=== PATIENT | female | born 1965 | race Caucasian/White ===

== ENCOUNTER → 2018-02-20 07:43 | Outpatient (CLI) | payer OTHER, SELFPAY ==
--- NOTE | 2018-02-20 08:09 | BI_ITS ---
MAMMOGRAPHY - BILATERAL SCREENING 3-D WILBUR SYNTHESIS REASON FOR EXAM: Female, 52 years old. Bilateral Screening 3-D tomosynthesis PERTINENT HISTORY: No significant family history. TECHNIQUE: 2-D mammograms and 3-D Wilbur synthesis of the breast (s) were performed. CAD was performed. COMPARISON: None. FINDINGS: The breast composition is composed of scattered fibroglandular density. Scattered benign calcifications are seen. No dense spiculated masses or suspicious microcalcifications are identified. No architectural distortion is identified. There is no skin thickening or retraction. There has been no significant change since the prior study. BI/SCREENING MAMM (CAD), BILAT IMPRESSION: No mammographic signs of malignancy. Routine yearly mammograms recommended. ASSESSMENT CATEGORY: BIRADS Category 2: Benign. A letter regarding these results will be sent to the patient by the facility within 30 days. FOLLOW UP RECOMMENDATION: Yearly follow up mammogram recommended. (A) Approximately 10% of breast cancers are not detected by mammography. A normal mammogram should not delay biopsy of a clinically suspicious abnormality. Electronically Signed: Alex Lundberg MD at 17:30 EDT , Service support ,
== END ==
PROVIDERS: Family Provider Nurse Practitioner Family; PCP Nurse Practitioner Family; Visit Provider Nurse Practitioner Family
DX: Z12.31 Encounter for screening mammogram for malignant neoplasm of breast (principal)
CPT/HCPCS: 77063; 77067

== ENCOUNTER → 2018-07-22 16:40 | Outpatient (CLI) | payer OTHER, SELFPAY ==
--- NOTE | 2018-07-22 16:40 | EMB_PTH ---
PATIENT: ANDRY MCKENZIE LOC: [facility] U#:[id number] AGE/SX: 59/F ROOM: RE07/22/[address]: Dr. Ramon Sanchez MD : 1965 BED: DIS: SPEC #: [id number] RECD: 07/22/18 17:02 STATUS: JAIRO LEXUS #: [id number] ANGEL: 07/22/18 16:[address]: Ramon Sanchez DEPT: SURGICAL PATHOLOGY RECD BY: Loi Ramirez ENTERED: 07/23/18 11:28 SP TYPE: ENDOM BX/C EV[place] DR: Mauro Hernández, AMANDEEP-C Tissues: Endometrium, NOS Procedures: Surgery Specimen Level IV HEADER OPERATION: Endometrial biopsy PRE-OP DIAGNOSIS: Menorrhagia TISSUE SUBMITTED: Endometrial biopsy MICROSCOPIC DIAGNOSIS Endometrium, biopsy: Strips of weakly proliferative to inactive endometrium with focal stromal and glandular breakdown. Mild chronic endometritis. AM:martina 07/26/18 MICROSCOPIC DESCRIPTION Slides are reviewed. GROSS DESCRIPTION Received in fixative is one container labeled with the patient's name and designated endometrial biopsy. The specimen consists of multiple irregular fragments of red-zhao soft tissue that in aggregate measure 5.5 x 3 x 0.2 cm. The specimen is totally submitted in two cassettes. / AM:martina 07/23/18 TC:5 CPT: 89894
== END ==
PROVIDERS: Family Provider Nurse Practitioner Family; PCP Nurse Practitioner Family; Referring Provider Obstetrics & Gynecology; Visit Provider Obstetrics & Gynecology
DX: N92.0 Excessive and frequent menstruation with regular cycle (principal)
CPT/HCPCS: 88305

== ENCOUNTER → 2018-07-28 10:11 | Outpatient (CLI) | payer OTHER, SELFPAY ==
[2018-07-28 13:59] LABS: Follicle Stimulating Hormone 6.6 mIU/mL; Thyroid Stim Hormone (TSH) 1.63 uIU/mL (0.358-3.74)
[2018-07-29 12:06] LABS: Cancer Antigen 125 23.8 U/mL (0.0-38.1)
== END ==
PROVIDERS: Visit Provider Obstetrics & Gynecology
DX: N92.0 Excessive and frequent menstruation with regular cycle (principal); N84.1 Polyp of cervix uteri
CPT/HCPCS: 36415; 83001; 84443; 86304

== ENCOUNTER 2018-08-30 08:06 | Day surgery (SDC) | payer OTHER, SELFPAY ==
[2018-08-25 13:33] LABS: Hematocrit 38.3 % (37-47); Hemoglobin 12.2 g/dl (12.0-15.0); Mean Corp Hgb Conc 31.9 g/gl (32-36); Mean Corpuscular Hgb 31.1 pg (27.0-32.0); Mean Corpuscular Volume 97.7 fL (81-99); Platelet Count 248 K/mm3 (150-450); RBC Distribution Width CV 12.9 % (11.6-14.6); RBC Distribution Width SD 45.4 fl (35.1-43.9); Red Blood Count 3.92 M/mm3 (4.2-5.4); White Blood Count 4.3 K/mm3 (4.4-11.0)
[2018-08-25 13:37] LABS: Scan Indicated on CBC? Y/N NO
[2018-08-25 13:47] LABS: Prothrombin Time (Protime)PT. 13.1 SECONDS (11.7-14.9)
[2018-08-25 13:48] LABS: Partial Thromboplast Time 26.4 Seconds (24.1-36.2)
[2018-08-25 14:01] LABS: Creatinine, Serum 0.69 mg/dL (0.55-1.02); EST Glomerular Filtration Rate 94 mL/min (>60); Est Glom Filt Rate - Afr Amer 114 mL/min (>60)
--- NOTE | 2018-08-29 20:20 | PCM.HP.BLA ---
History and Physical Date of Admission: 08/30/18 Surgical History and Physical Mishel Mckeon, a 52 year old female 2 0 0 0 2, presents for RAVH/BSO on August 30, 2018 at 12:30. -- Bilateral Ovarian Cysts; Blood Loss Anemia; Menorrhagia; Submucous Fibroids -- Low Iron Count, Heavy Periods which began 1 year. Mishel claims it started gradually and has been present 1 year. It occurs with menses. It is located in the vagina.; It is located in the lower abdomen. Mishel characterizes it to be non-radiating. Mishel characterizes the quality heavy menses. Severity is moderate and very concerned; Additional comments are: U/S showed submucous fibroid, bilateral septated ovarian cysts with largest 7 cm. MEDICATIONS HISTORY: ALLERGIES: NKA Infections - none Illnesses - no serious past illnesses Accidents - no injuries of consequence Hospitalizations - Childbirth Review of Systems: GENERAL - Denies fever, or chills SKIN - Denies skin changes EYES - Denies visual changes EARS - Denies difficulty hearing NOSE - Denies nasal congestion or bleeding MOUTH - Denies sore throat or difficulty swallowing NECK - Denies pain or swelling RESPIRATORY - Denies shortness of breath or wheezing CARDIOVASCULAR - Denies palpitations or chest pain GASTROINTESTINAL - Denies nausea, vomiting, diarrhea, constipation GENITOURINARY - Denies dysuria, frequency of urination, incontinence of urine MUSCULOSKELETAL - Denies joint or muscle pain NEUROLOGICAL - Denies localized numbness or weakness PSYCHIATRIC - Denies depression or anxiety ENDOCRINE - Denies heat or cold intolerance, weight loss or gain HEMATO-IMMUNOLOGIC - Denies excesive bleeding with cuts SOCIAL HISTORY: Alcohol Use - denies drinking Smoking - denies smoking Diet - no particular diet Lifestyle - moderate stress lifestyle and Exercise - very active Seat Belt Use - always Employer - [employer] 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 MENSTRUAL HISTORY: LMP Known?- DefiniteAmount/Duration - 4-5 DAYS, Regularity - bleeds between periods, Frequency - monthly days, LMP - 08/02/18, Age Onset Menarche - 12 PAST PREGNANCIES: Total Pregnancies - 2; Full Term Pregnancies - 2; Premature - 0; Abortions, Induced - 0; Abortions, Spontaneous - 0; Ectopics - 0; Multiple Births - 0; Living Children - 2 SURGICAL HISTORY: 1. tonsils as child PHYSICAL EXAM BP- 110/72 Sitting, Right arm, regular cuff Temp- 97.8 Taken Orally Weight- 147.99534 lbs Height- 65 inch BMI:24.51 CONSTITUTIONAL - NAD, well nourished, and well developed SKIN - No rash, lesions, or ulcers HEENT - Normocephalic, PERRLA, EOMI NECK - No nodes, no nuchal rigidity and thyroid normal size and texture LYMPH NODES - Palpation of lymph nodes in neck and groins within normal limits LUNGS - CTA x2 without wheezes, crackles or rales CARDIAC - Regular rate and rhythm without rubs, murmurs, or gallops ABDOMEN - Without hepatosplenomegaly, distention, masses, rebound, or guarding; normal bowel sounds; no hernias EXTREMITIES - No edema or calf tenderness NEUROLOGICAL - Cranial nerves II-XII grossly intact PSYCHIATRIC - A and O to time, place, person, mood and affect External Genitial Vagina - non-tender without lesions Urethra/Urethral Meatus - non-tender Bladder - non-tender Vagina - vaginal [place] are pink and moist without loss of rugae and no evidence of atropy and blood in vagina Cervix - without cervical motion tenderness and has normal size and features without evident lesions and cervix high in vagina with minimal movement with tenaculum pull-down Uterus - multiparous size 6 cm & wt 75-125 g Adnexa - clear without massess or tenderness ASSESSMENT/PLAN: 1. Blood Loss Anemia, Menorrhagia and Submucous Leiomyoma Of Uterus Discussed options for treatment and pt desires we proceed with RAVH/BSO. Discussed RBAs including possible need for laparotomy, HRT and all questions answered. 2. Ovarian Cyst Nos CA-125 mildly elevated but in normal range (23). EMBx OK.
[2018-08-30] VITALS (13 sets, daily range): BP systolic 89–109; BP diastolic 53–80; PULSE 53–75; RESP 12–18; TEMP 36.2–37.6; O2SAT 96–100; BMI 24.5
--- NOTE | 2018-08-30 | HYST_PTH ---
PATIENT: ANDRY MCKENZIE LOC: [facility] U#:[id number] AGE/SX: 52/F ROOM: RE08/30/[address]: Dr. Ramon Sanchez MD : 1965 BED: DIS: 08/31/2018 SPEC #: [id number] RECD: 08/30/18 14:53 STATUS: JAIRO LEXUS #: [id number] ANGEL: 08/30/18 00:[address]: Ramon Sanchez DEPT: SURGICAL PATHOLOGY RECD BY: Jake Santana ENTERED: 08/30/18 14:53 SP TYPE: HYSTERECT OTHR DR: MD Mauro Meyer, AMBULATORY CARE NURSE-C Tissues: Uterus, NOS Procedures: Surgery Specimen Level V HEADER OPERATION: ERAS-lap robotic hysterectomy, BSO PRE-OP DIAGNOSIS: Bilateral ovarian cysts, menorrhagia, submucous fibroids TISSUE SUBMITTED: Bilateral tubes, ovaries and uterus MICROSCOPIC DIAGNOSIS Uterus, bilateral fallopian tubes and ovaries, hysterectomy and bilateral salpingo-oophorectomy: Cervix - mild acute and chronic inflammation and squamous metaplasia. Endometrium - early secretory endometrium. Myometrium - intramural leiomyomas (largest measuring 1.2 cm in greatest dimension). - Focal adenomyosis. Bilateral fallopian tubes - no pathologic diagnosis. Right ovary - physiologic corpus luteum cyst. Left ovary - endometriosis. - Physiologic corpus luteum cyst. SJ:martina 08/31/18 MICROSCOPIC DESCRIPTION Slides are reviewed. GROSS DESCRIPTION Received in fixative is one container labeled with the patient's name and designated uterus. The specimen consists of a uterus with attached right and left fallopian tubes and ovaries. The uterus with cervix measures 11.5 x 8 x 5 cm and weighs 173 gm. The ectocervix is unremarkable. The cervical os is round in contour. The endocervical canal measures 4 cm in length and is grossly unremarkable. The triangular endometrial cavity measures 4.5 x 4.5 cm. The reddish-zhao, velvety endometrium measures up to 0.2 cm in thickness. The myometrium measures 2.8 cm in average thickness and contains multiple rubbery spherical white-zhao nodules ranging in size from 0.3 to 1.2 cm in greatest dimension. The smooth, glistening right cystic ovary measures 6 x 4 x 2.5 cm and weighs 26 gm. The adjacent fallopian tube measures 5.6 x 0.6 cm. No tubo-ovarian adhesions are seen. The external ovarian surface is smooth and glistening and is inked. Serial sections of the ovary reveal multiple cysts ranging in size from 1.3 to 4 cm and containing clear to bloody fluid. The left ovary is similar in appearance and measures 6.5 x 3.5 cm and reveals a previously sectioned cyst. The left fallopian tube measures 5.5 cm in length and 0.7 cm in average diameter and the fimbriated end appears to be adhesed to the cystic ovary. The cysts are 0.7 to 2.5 cm in greatest dimension and contain clear to bloody fluid. Machine Hostler sections are submitted in 12 cassettes as follows: 1 - anterior cervix, 2 - posterior cervix, 3 & 4 - anterior uterine wall, 5 & 6 - posterior uterine wall, 7 - myometrial nodules, 8 - right fallopian tube, 9 - right ovary, 10 - left fallopian tube, 11 & 12 - left ovary. / AM:martina 08/30/18 TC:5 CPT: 32608
[2018-08-30 08:34] LABS: Internal QC Validated? YES +Cl - CLEAR BKGD
[2018-08-30 08:37] LABS: Pregnancy, Urine Negative Negative
[2018-08-30] MEDS: Ropivacaine 0.5% 30 ML Vial (12:05)
--- NOTE | 2018-08-30 13:43 | PCM.OPRPT ---
Report of Operation Date of Procedure: 08/30/18 Pre-Operative Diagnosis: Blood Loss Anemia, Submucous Fibroids, Bilateral Ovarian Cyst, Menorrhagia Post-Operative Diagnosis: Blood Loss Anemia, Submucous Fibroids, Bilateral Ovarian Cyst, Menorrhagia Surgery/Procedure Performed:: Robotic Assisted Vaginal Hysterectomy and Bilateral Salpingo-Oophrectomy Description of Surgical Findings:: 12 cm sized fibroid uterus with bilateral ovarian cysts. Right ovary with 3 cm simple appearing cyst. Left ovary with complex endometrioid appearing cyst which was approximately 5 cm and filled with clear to greenish fluid. Densely adhered to the left pelvic sidewall. Evidence of endometriosis. Bilateral ureteral peristalsis noted after procedure was completed. signal fitter: Chepe Ross Type of Anesthesia:: General Anesthesiologist: Heidi Villanueva Specimen's removed: Uterus, bilateral fallopian tubes and ovaries Drains: Adwn to straight drain Estimated Blood Loss (mL): Minimal Fluids Replaced: Crystalloid Description of Procedure: Surgeon: Ramon Sanchez MD, FACOG Indication: This is a 52 year old patient who has been having problems with extremely heavy menses, uterine fibroid, blood loss anemia, and bilateral ovarian cysts noted on recent ultrasound. Conservative measures have not been helpful. The patient has been counseled regarding the risks, benefits and alternatives of this procedure including the possibility of bleeding, infection, and injury to surrounding structures such as bowel bladder and all questions were answered. She understands that with BSO that she may need to be on HRT for an indefinite period of time. Procedure: Pt taken to the operating room where after induction of general anesthesia the patient was prepped and draped in the usual sterile fashion and placed on a non-slip Huggy-u-vac device. Trendendelenburg test was satisfactory. Bladder was drained of urine with a Dawn catheter which was left in place. Anterior cervix grasped and cervix was dilated to about 3-4 mm. Uterus sounded to 11 cms. 0-Vicryl suture was placed at the 3:00 and 9:00 position of the cervix. A large V-care device was then placed in the uterus to allow uterine manipulation and attention was turned to the laparoscopic portion of the procedure. Ropivocaine 0.5% was injected approximately 2-3 cm superior to the umbilicus and an 8 mm robotic camera port was introduced directly with intraperitoneal placement confirmed with insufflation. 8 mm robotic side ports were introduced under direct visualization approximately 11 cm lateral and 2 cm inferior to the umbilical port. A 5 mm left upper quadrant port was introduced and airseal insufflation with CO2 was started. The above findings were noted. Robot was docked without difficulty and attention turned to the robotic portion of the procedure. Approximately 22 cc of Ropivicaine was used. Bilateral infundibulocal ligaments were ligated with 45 hernandez bipolar coagulation to the level of the round ligament. The left densely adhered ovary was freed and fluid was suctioned after the cyst ruptured. The posterior aspect of the cervix was identified and then opened for about 1 cm using 25 watt monopolar cautery identifying the V-care device which had been placed vaginally. Bladder flap was opened and divided to the level of the round ligaments using monopolar cautery. Progressive bites were then ligated on each side of the cervix with 35 hernandez bipolar cautery to the uterine arteries. The anterior vaginal mucosa was then entered and cervix circumscribed with monopolar cautery. Uterus and attached ovaries and tubes were then removed through the vagina. Vaginal cuff was closed first with 0-Vicryl Bahman stitches placed at each angle followed by closure of the mid-cuff with 0-Monocryl V-lock suture in two layers. Pelvis was copiously irrigated with saline and the right and left ureter were noted to peristalse. Robot was undocked and trocars were removed with as much gas as possible. Incisions were closed with 4-0 Monocryl subcuticular sutures and incisions covered with steri-strips and opsite dressing. The patient tolerated the procedure well and was taken to the recovery room in satisfactory condition. Sponge, instruments and needle counts were all correct. There were no apparent complications of the surgery. Cefotan 2 gms IV was given prior to the procedure. Specimen to Pathology: Uterus and bilateral tubes and ovaries Grafts/Implants Used: None - Complications None - Admit VTE Documentation VTE Present on Admission: Yes VTE Mechan Device Prophylaxis: SCD's VTE Pharm Prophylaxis ordered?: Yes
--- NOTE | 2018-08-30 13:54 | DCINST_ITS ---
Discharge Diet: No Restrictions Discharge Activity: Return to Normal Activity, May Not Drive - while taking narcotic pain medications., May Shower May resume sexual activity in: 6-8 weeks Call your doctor if your incision/area has: Continuous Slow Oozing, Sudden Increased Bleeding, Increased Pain/ Swelling, Increased Redness, Foul Smelling Discharge Call your doctor if you observe: Fever of 101 or Higher, Inability to urinate, Inability to have a bowel movement, Using more than one pad per hour Allergies/Adverse Reactions: Allergies No Known Allergies Allergy (Verified 08/23/18 11:40) Medications to take at Discharge Cranberry 500 mg PO DAILY 08/23/18 Iron Carbonyl [Feosol] 65 mg PO MOWEFR 08/23/18 Loperamide HCl [Anti-Diarrheal] 2 mg PO PRN PRN 08/23/18 Naproxen [Naprosyn] 500 mg PO DAILY PRN PRN 08/23/18 Ranitidine [Zantac] 150 mg PO DAILY PRN 08/23/18 Docusate Sodium [Colace] 100 mg PO BID PRN PRN #60 cap 08/30/18 Estradiol [Estrace (G)] 1 mg PO DAILY #100 tab 08/30/18 Oxycodone [Oxyir] 5 mg PO Q6H PRN PRN 7 Days #20 tab 08/30/18 The following prescriptions were given: Oxycodone [Oxyir] 5 mg PO Q6H PRN PRN 7 Days #20 tab PRN Reason: Severe Pain (-06/30) Docusate Sodium [Colace] 100 mg PO BID PRN PRN #60 cap PRN Reason: Constipation Estradiol [Estrace (G)] 1 mg PO DAILY #100 tab Orders to be completed after discharge: Type & Screen Time Frame: 08/25/18, Location: None Selected 12 Lead EKG [[facility]] Time Frame: 08/25/18, Location: None Selected Primary Care Physician: Mauro Hernández NP-C [Primary Care Provider] - Test Results: Test results from this visit will be discussed in further detail at your follow- up appointment, if applicable. Please Follow Up With: Ramon Sanchez MD When: 2-3 weeks
[2018-08-30] MEDS: Enoxaparin 30 MG/0.3 ML Syringe SC (18:19)
[2018-08-30] MEDS: Ketorolac 30 MG/ML Syringe IV (20:08)
[2018-08-30] MEDS: Acetaminophen 500 MG Tablet 1000 MG PO (21:52)
[2018-08-30] MEDS: oxyCODONE 5 MG Tablet PO (23:05)
[2018-08-30] MEDS: Dextrose 5%-Lactated Ringers 1,000 ML 150 ML IV (23:05)
[2018-08-31 02:00] VITALS: BP 92/51; PULSE 72; RESP 16; TEMP 37; O2SAT 99
[2018-08-31] MEDS: Ketorolac 30 MG/ML Syringe IV (02:10)
[2018-08-31 05:45] LABS: Hematocrit 31.9 % (37-47); Hemoglobin 10.1 g/dl (12.0-15.0); Mean Corp Hgb Conc 31.7 g/gl (32-36); Mean Corpuscular Hgb 31.3 pg (27.0-32.0); Mean Corpuscular Volume 98.8 fL (81-99); Mean Platelet Vol. 10.1 fl (6.2-12.0); Platelet Count 223 K/mm3 (150-450); RBC Distribution Width CV 13.3 % (11.6-14.6); RBC Distribution Width SD 46.2 fl (35.1-43.9); Red Blood Count 3.23 M/mm3 (4.2-5.4); White Blood Count 7.8 K/mm3 (4.4-11.0)
[2018-08-31 06:01] LABS: Scan Indicated on CBC? Y/N NO
[2018-08-31 06:08] LABS: Creatinine, Serum 0.57 mg/dL (0.55-1.02); EST Glomerular Filtration Rate 118 mL/min (>60); Est Glom Filt Rate - Afr Amer 142 mL/min (>60); Estimated Creatinine Clearance 103.89 ml/min
[2018-08-31 06:50] VITALS: O2SAT 98
[2018-08-31 07:51] VITALS: BP 111/60; PULSE 60; RESP 14; TEMP 36.7; O2SAT 100
--- NOTE | 2018-08-31 09:06 | PN.OBGYN_ITS ---
Subjective: Patient without complaints. Tolerating diet well. Positive flatus. Minimal vaginal bleeding. Ready to go home today. - Physical Exam Vital Signs Temp Pulse Resp BP Pulse Ox 98.1 F 60 14 111/60 100 08/31/18 07:51 08/31/18 07:51 08/31/18 07:51 08/31/18 07:51 08/31/18 07:51 Oxygen Flow Rate (L/min) 2 Oxygen Delivery Method Room Air Weight: 147 lb 0.773 oz Body Mass Index (BMI) 24.5 Intake and Output for Last 24 Hours 08/29/18 08/30/18 08/31/18 23:59 23:59 23:59 Intake Total 4094 / 4094 1200 / 1200 Output Total 2080 / 2080 1900 / 1900 Balance 2013 -700 / -700 Laboratory Tests Past 24 Hrs 08/31/18 08/31/18 05:20 05:20 WBC 7.8 RBC 3.23 L Hgb 10.1 L Hct 31.9 L MCV 98.8 MCH 31.3 MCHC 31.7 L RDW 13.3 RDW Differential 46.2 H Plt Count 223 MPV 10.1 Creatinine 0.57 Estim Creat Clear Calc 103.89 Est GFR (MDRD) Af Amer 142 Est GFR (MDRD) Non-Af 118 Wounds are clean, dry, intact. Good urine output. Hemoglobin and creatinine okay. Minimal vaginal bleeding noted. Medical Necessity - Tobacco Use Smoking Status: Never smoker Tobacco Use: Non-smoker Assessment/Plan Doing well status postoperative day #1 robotic assisted vaginal hysterectomy and bilateral salpingo-oophorectomy. We will released to home with routine instr uctions.
[2018-08-31] MEDS: Ketorolac 10 MG Tablet PO (09:33)
== END 2018-08-31 11:15 | disposition home or self-care (01) ==
LOC: SDC 08:12 → AC 08:13 → MS2 10:10
PROVIDERS: Anesthesiology; Family Provider Nurse Practitioner Family; PCP Nurse Practitioner Family; Referring Provider Obstetrics & Gynecology; Visit Provider Obstetrics & Gynecology
PROC: 0UT94ZZ Resection of Uterus, Percutaneous Endoscopic Approach (ICD-10-PCS; CPT 58552; principal; 2018-08-30 09:50)
DX: D25.1 Intramural leiomyoma of uterus (principal); N87.0 Mild cervical dysplasia; N80.0 Endometriosis of uterus; N83.12 Corpus luteum cyst of left ovary; N83.11 Corpus luteum cyst of right ovary; N80.1 Endometriosis of ovary; N72 Inflammatory disease of cervix uteri; D50.0 Iron deficiency anemia secondary to blood loss (chronic); Z79.899 Other long term (current) drug therapy
CPT/HCPCS: 00840; 58552; 36415; 81025; 82565; 85027; 85610; 85730; 86850; 86900; 88307; 93005; J7120; A4216; J2405

== ENCOUNTER → 2018-10-07 14:07 | Outpatient (CLI) | payer OTHER, SELFPAY ==
[2018-08-30 16:21] VITALS: BMI 24.5
--- OUTSIDE RECORDS SUMMARY | 2018-12-12 09:13 | XMS RPT_ITS ---
:1965 Author Organization OHIP Support Name Relationship Address Phone MIS MCKEON Unavailable [address] + [place] [address] SHERI SIGNS Unavailable [address] + [place] [address] SHAD MCKEONY Unavailable [address] + [place] [address] SHERI SIGNS Unavailable [address] + [place] [address] SHAD MCKEONY Unavailable [address] + [place] [address] SHERI SIGNS Unavailable [address] + [place] [address] MAGALY MIS Unavailable [address] + [place] [address] SHERI SIGNS Unavailable [address] + [place] [address] MAGALY MIS Unavailable [address] + [place] [address] SHERI SIGNS Unavailable [address] + [place] [address] MAGALY MIS Unavailable Unavailable + SHERI SIGNS Unavailable [address] + [place] [address] MAGALY MIS Unavailable [address] + [place] [address] MAGALY MIS Unavailable [address] + [place] [address] MAGALY MIS Unavailable [address] + [place] [address] MAGALY, MIS Unavailable [address] + [place] [address] MAGALY, MIS Unavailable [address] + [place] [address] MAGALY, MIS Unavailable [address] + [facility] [place] [place] [address] Care Team Providers Name Role Phone CANDIDO VILLA Attending Unavailable MAURO HERNÁNDEZ CNP Primary Care Unavailable MAURO HERNÁNDEZ CNP Attending Unavailable MAURO HERNÁNDEZ CNP Primary Care Unavailable MAURO HERNÁNDEZ CNP Attending Unavailable MAURO HERNÁNDEZ CNP Primary Care Unavailable AN BENITEZ Referring Unavailable MASCOTILIO Kaur Referring Unavailable MASCOTILIO Kaur Attending Unavailable MAURO HERNÁNDEZ Referring Unavailable MASCNatasha, OTILIO Ojeda Attending Unavailable MASCI, OTILIO Ojeda Referring Unavailable MASCI, OTILIO Ojeda Referring Unavailable MASCNatasha, OTILIO Ojeda Referring Unavailable Johnathan Martinez Attending Unavailable Ramon Sanchez Referring Unavailable Enedina Mack Attending Unavailable Mauro Hernández RN CHARGE-C Attending Unavailable Mauro Hernández RN CHARGE-C Referring Unavailable Mauro Hernández RN CHARGE-[facility] Primary [facility] Unavailable Ramon Sanchez Attending Unavailable Ramon Sanchez Referring Unavailable Mauro Hernández RN CHARGE-[facility] Primary [facility] Unavailable Rmaon Sanchez Attending Unavailable Ramon Sanchez Attending Unavailable Ramon Sanchez Referring Unavailable Mauro Hernández RN CHARGE-C Primary Care Unavailable Indio Sherwood Consulting Unavailable PROBLEMS PROBLEMS DATE TYPE CONDITION / CODE ATTENDING STATUS SOURCE 10/07/2018 Unknown R30.0 - Dysuria / Martina Active [place] R30.0(ICD-10) [facility] Repository 06/25/2018 Active 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 Hospital examination / Repository Z01.810(ICD-10) 07/28/2018 Unknown N92.0 - Excessive Weeman, Ramon Active [place] and frequent Community menstruation with Hospital regular cycle / Repository N92.0(ICD-10) 07/28/2018 Unknown N84.1 - Polyp of Ramon Sanchez Active [place] cervix uteri / Community N84.1(ICD-10) Hospital Repository 06/25/2018 Active Iron deficiency NA Active [place] anemia, unspecified Clinic Main / D50.9(ICD-10) [place] Repository 03/18/2018 Active Neutropenia, NA Active [place] unspecified / Clinic Main D70.9(ICD-10) [place] Repository 03/18/2018 Active Unknown / MASCIOTILIO A Active [place] UNK(Unknown) Clinic Main [place] Repository 02/20/2018 Unknown Z12.31 - Encounter [facility] for screening Mauro Santana [facility] mammogram for [facility] malignant neoplasm Repository of breast / Z12.31(ICD-10) 02/19/2018 Admitting Decreased white ROSELYN PABON, Active [facility] Diagnosis blood cell count, MAURO Santana [facility] unspecified / Repository D72.819(ICD-10) 02/02/2018 Admitting Encounter for ROSELYN PABON, Active [facility] Diagnosis gynecological MAURO Santana [facility] examination Repository (general) (routine) without abnormal findings / Z01.419(ICD-10) 02/02/2018 Admitting Encounter for ROSELYN PABON, Active [facility] Diagnosis screening for MAURO Chi diabetes mellitus / Repository Z13.1(ICD-10) 02/02/2018 Admitting Encounter for [facility], Active [facility] Diagnosis screening for MAURO Santana [facility] cardiovascular Repository disorders / Z13.6(ICD-10) PROCEDURES PROCEDURES No Procedure Records FoundRESULTS RESULTS Observed: 10/07/2018 Status: F Source: [place] CULTURE, URINE 11:15 AM [facility] REPOSITORY Urine Culture Culture exhibits no growth. Performed By: #### M100.0650 #### [place] [facility] [address] [place], [address] [place] ABS GR + CBC Collected: 09/22/2018 Status: F Source: [place] 9:47 AM [facility] REPOSITORY TYPE CODE TESTS RESULT OUT OF REFERENCE UNITS RANGE LAB WWBC 3.70-11.00 k/uL [place] WBC 4.53 LAB WRBC 3.90-5.20 m/uL [place] RBC 4.29 LAB WHGB 11.5-15.5 g/dL [place] Hemoglobin 13.1 LAB WHCT 36.0-46.0 % [place] Hematocrit 41.3 LAB WMCV 80.0-100.0 fL [place] MCV 96.3 LAB WMCH 26.0-34.0 pg [place] MCH 30.5 LAB WMCHC 30.5-36.0 g/dL [place] MCHC 31.7 LAB WRDW 11.5-15.0 % [place] RDW 12.8 LAB WPLT 150-400 k/uL [place] Platelet Cnt 294 LAB WMPV 9.0-12.7 fL [place] MPV 9.5 Result Comment: Test performed at: [facility], [address] [place] [address] Rd[address] [place] [address]. LAB ABGRAN 1.45-7.50 k/uL Absol Gran 2.26 Count IRON AND TIBC Collected: 09/22/2018 Status: F Source: [place] 9:47 AM [facility] REPOSITORY TYPE CODE TESTS RESULT OUT OF REFERENCE UNITS RANGE LAB IRN 41-186 ug/dL Iron 99 LAB TIBC 232-386 ug/dL TIBC High 395 LAB SAT 15-57 % Transferrin Saturatn 25 Performed By: #### IRON #### [facility] [employer] [address] [address] FERRITIN Collected: 09/22/2018 Status: F Source: [place] 9:46 AM [facility] REPOSITORY TYPE CODE TESTS RESULT OUT OF REFERENCE UNITS RANGE LAB FERR 14.7-205.1 ng/mL Ferritin 21.8 Performed By: #### FERR #### [facility] [employer] [address] [place], [place] [address] CBC-COMPLETE BLOOD CNT Collected: 08/31/2018 Status: F Source: [place] NO DIFF 5:20 AM [facility] REPOSITORY TYPE CODE TESTS RESULT OUT OF RANGE REFERENCE UNITS LAB L100.1000 4.4-11.0 K/mm3 Normal WBC 7.8 LAB L100.1200 4.2-5.4 M/mm3 Low RBC 3.23 LAB L100.1300 12.0-15.0 g/dl Low HGB 10.1 LAB L100.1400 37-47 % Low HCT 31.9 LAB L100.1500 81-99 fL Normal MCV 98.8 LAB L100.1600 27.0-32.0 pg Normal MCH 31.3 LAB L100.1700 32-36 g/gl Low MCHC 31.7 LAB L100.1810 11.6-14.6 % Normal RDW CV 13.3 LAB L100.1820 35.1-43.9 fl High RDW SD 46.2 LAB L100.1900 150-450 K/mm3 Normal PLT 223 LAB L100.2000 6.2-12.0 fl Normal MPV 10.1 Performed By: #### L100.0500 #### [facility] [address] [facility] [place], [address] SERUM CREATININE AND Collected: 08/31/2018 Status: F Source: [place] GFR 5:20 AM [facility] REPOSITORY TYPE CODE TESTS RESULT OUT OF RANGE REFERENCE UNITS LAB L501.1100 0.55-1.02 mg/dL Normal 0.57 CREAT,SERUM Result Comment: The validity of the calculated GFR AND GFRAA in patients over 70 years has not been determined. Clinical correlation is essential. LAB L501.1110 >60 mL/min Normal EST GFR 118 Result Comment: Non- GFR Calc LAB L501.1115 >60 mL/min Normal EST GFR - AA 142 Result Comment: GFR Calc LAB L501.1255 ml/min Normal Estimated CRCL 103.89 Performed By: #### L501.1105 #### [facility] [address] [facility] [place] [place], [address] DISCHARGE INSTRUCTION Observed: 08/30/2018 Status: F Source: [place] 1:54 PM [facility] REPOSITORY [facility] Medical Records Department [address] [place] [address] Instructions for Home/Discharge Instructions 08/30/18 1354 MR#: [id number] Acct: [id number] Name: ANDRY MCKEON Rep #: [id number] : 1965 52 From: Ramon Sancehz MD PCP: Mauro Hernández, RN CHARGE-C Status: REG SDC Discharge Diet: No Restrictions Discharge Activity: Return to Normal Activity, May Not Drive - while taking narcotic pain medications., May Shower May resume sexual activity in: 6-8 weeks Call your doctor if your incision/area has: Continuous Slow Oozing, Sudden Increased Bleeding, Increased Pain/ Swelling, Increased Redness, Foul Smelling Discharge Call your doctor if you observe: Fever of 101 or Higher, Inability to urinate, Inability to have a bowel movement, Using more than one pad per hour Allergies/Adverse Reactions: Allergies No Known Allergies Allergy (Verified 08/23/18 11:40) Medications to take at Discharge Cranberry 500 mg PO DAILY 08/23/18 Iron Carbonyl [Feosol] 65 mg PO MOWEFR 08/23/18 Loperamide HCl [Anti-Diarrheal] 2 mg PO PRN PRN 08/23/18 Naproxen [Naprosyn] 500 mg PO DAILY PRN PRN 08/23/18 Ranitidine [Zantac] 150 mg PO DAILY PRN 08/23/18 Docusate Sodium [Colace] 100 mg PO BID PRN PRN #60 cap 08/30/18 Estradiol [Estrace (G)] 1 mg PO DAILY #100 tab 08/30/18 Oxycodone [Oxyir] 5 mg PO Q6H PRN PRN 7 Days #20 tab 08/30/18 The following prescriptions were given: Oxycodone [Oxyir] 5 mg PO Q6H PRN PRN 7 Days #20 tab PRN Reason: Severe Pain (-06/30) Docusate Sodium [Colace] 100 mg PO BID PRN PRN #60 cap PRN Reason: Constipation Estradiol [Estrace (G)] 1 mg PO DAILY #100 tab Orders to be completed after discharge: Type AND Screen Time Frame: 08/25/18, Location: None Selected 12 Lead EKG [CVS] Time Frame: 08/25/18, Location: None Selected Primary Care Physician: Mauro Hernándze NP-C [Primary Care Provider] - Test Results: Test results from this visit will be discussed in further detail at your follow-up appointment, if applicable. Please Follow Up With: Ramon Sanchez MD When: 2-3 weeks 08/30/18 6789 <Electronically signed by Ramon Sanchez MD> Date Ramon Sanchez MD CC: RN CHARGEWandy Hernández; Indio Sherwood MD OPERATIVE REPORT Observed: 08/30/2018 Status: F Source: [place] 1:52 PM [facility] REPOSITORY [facility] Medical Records Department [address] [place] [address] Operative Report 08/30/18 1343 MR#: [id number] Acct: [id number] Name: ANDRY MCKEON Rep #: [id number] : 1965 52 From: Raomn Sanchez MD PCP: DENISE Martinez Status: REG [facility] [place] [place] Y Location: [place] [address] Report of Operation Date of Procedure: 08/30/18 Pre-Operative Diagnosis: Blood Loss Anemia, Submucous Fibroids, Bilateral Ovarian Cyst, Menorrhagia Post-Operative Diagnosis: Blood Loss Anemia, Submucous Fibroids, Bilateral Ovarian Cyst, Menorrhagia Surgery/Procedure Performed:: Robotic Assisted Vaginal Hysterectomy and Bilateral Salpingo-Oophrectomy Description of Surgical Findings:: 12 cm sized fibroid uterus with bilateral ovarian cysts. Right ovary with 3 cm simple appearing cyst. Left ovary with complex endometrioid appearing cyst which was approximately 5 cm and filled with clear to greenish fluid. Densely adhered to the left pelvic sidewall. Evidence of endometriosis. Bilateral ureteral peristalsis noted after procedure was completed. wire stitcher machine: Chepe Ross Type of Anesthesia:: General Anesthesiologist: Heidi Villanueva Specimen's removed: Uterus, bilateral fallopian tubes and ovaries Drains: Dawn to straight drain Estimated Blood Loss (mL): Minimal Fluids Replaced: Crystalloid Description of Procedure: Surgeon: Ramon Sanchez MD, FACOG Indication: This is a 52 year old patient who has been having problems with extremely heavy menses, uterine fibroid, blood loss anemia, and bilateral ovarian cysts noted on recent ultrasound. Conservative measures have not been helpful. The patient has been counseled regarding the risks, benefits and alternatives of this procedure including the possibility of bleeding, infection, and injury to surrounding structures such as bowel bladder and all questions were answered. She understands that with BSO that she may need to be on HRT for an indefinite period of time. Procedure: Pt taken to the operating room where after induction of general anesthesia the patient was prepped and draped in the usual sterile fashion and placed on a non-slip Huggy-u-vac device. Trendendelenburg test was satisfactory. Bladder was drained of urine with a Dawn catheter which was left in place. Anterior cervix grasped and cervix was dilated to about 3-4 mm. Uterus sounded to 11 cms. 0-Vicryl suture was placed at the 3:00 and 9:00 position of the cervix. A large V-care device was then placed in the uterus to allow uterine manipulation and attention was turned to the laparoscopic portion of the procedure. Ropivocaine 0.5% was injected approximately 2-3 cm superior to the umbilicus and an 8 mm robotic camera port was introduced directly with intraperitoneal placement confirmed with insufflation. 8 mm robotic side ports were introduced under direct visualization approximately 11 cm lateral and 2 cm inferior to the umbilical port. A 5 mm left upper quadrant port was introduced and airseal insufflation with CO2 was started. The above findings were noted. Robot was docked without difficulty and attention turned to the robotic portion of the procedure. Approximately 22 cc of Ropivicaine was used. Bilateral infundibulocal ligaments were ligated with 45 hernandez bipolar coagulation to the level of the round ligament. The left densely adhered ovary was freed and fluid was suctioned after the cyst ruptured. The posterior aspect of the cervix was identified and then opened for about 1 cm using 25 watt monopolar cautery identifying the V-care device which had been placed vaginally. Bladder flap was opened and divided to the level of the round ligaments using monopolar cautery. Progressive bites were then ligated on each side of the cervix with 35 hernandez bipolar cautery to the uterine arteries. The anterior vaginal mucosa was then entered and cervix circumscribed with monopolar cautery. Uterus and attached ovaries and tubes were then removed through the vagina. Vaginal cuff was closed first with 0-Vicryl Bahman stitches placed at each angle followed by closure of the mid-cuff with 0-Monocryl V-lock suture in two layers. Pelvis was copiously irrigated with saline and the right and left ureter were noted to peristalse. Robot was undocked and trocars were removed with as much gas as possible. Incisions were closed with 4-0 Monocryl subcuticular sutures and incisions covered with steri-strips and opsite dressing. The patient tolerated the procedure well and was taken to the recovery room in satisfactory condition. Sponge, instruments and needle counts were all correct. There were no apparent complications of the surgery. Cefotan 2 gms IV was given prior to the procedure. Specimen to Pathology: Uterus and bilateral tubes and ovaries Grafts/Implants Used: None - Complications None - Admit VTE Documentation VTE Present on Admission: Yes VTE Mechan Device Prophylaxis: SCD's VTE Pharm Prophylaxis ordered?: Yes 08/30/18 1352 <Electronically signed by Ramon Sanchez MD> Date Ramon Sanchez MD CC: RN CHARGEWandy Hernández; Indio Sherwood MD; Ramon Sanchez MD Signed ,URINE Collected: 08/30/2018 Status: F Source: [place] 8:25 AM [facility] REPOSITORY Order Comment: Reason for Laboratory Test preop TYPE CODE TESTS RESULT OUT OF REFERENCE UNITS RANGE LAB L400.8000 Negative Normal HCGUQUAL Negative Result Comment: Very dilute urine specimens, as indicated by a low specific gravity, may not contain commercial sales representative levels of hCG. If is still suspected, a first morning urine specimen should be collected 48 hours later and tested. Performed By: #### L400.7600 #### [facility] [address] [place] [address]. [place], [address] HYSTERECTOMY SPECIMEN Observed: 08/30/2018 Status: F Source: [place] 12:00 AM [facility] REPOSITORY Patient: ANDRY MCKEON : 1965 (52/F) Acct Num: [id number] Phys: Ramon Sanchez MD Unit Num: [id number] Loc: [facility] [place] [place] Specimen: [id number] Received: 08/30/18 - 1453 Spec Type: HYSTERECT TISSUES 1 TISSUES: Uterus, NOS GROSS DESCRIPTION Received in fixative is one container labeled with the patient's name and designated uterus. The specimen consists of a uterus with attached right and left fallopian tubes and ovaries. The uterus with cervix measures 11.5 x 8 x 5 cm and weighs 173 gm. The ectocervix is unremarkable. The cervical os is round in contour. The endocervical canal measures 4 cm in length and is grossly unremarkable. The triangular endometrial cavity measures 4.5 x 4.5 cm. The reddish-zhao, velvety endometrium measures up to 0.2 cm in thickness. The myometrium measures 2.8 cm in average thickness and contains multiple rubbery spherical white-zhao nodules ranging in size from 0.3 to 1.2 cm in greatest dimension. The smooth, glistening right cystic ovary measures 6 x 4 x 2.5 cm and weighs 26 gm. The adjacent fallopian tube measures 5.6 x 0.6 cm. No tubo- ovarian adhesions are seen. The external ovarian surface is smooth and glistening and is inked. Serial sections of the ovary reveal multiple cysts ranging in size from 1.3 to 4 cm and containing clear to bloody fluid. The left ovary is similar in appearance and measures 6.5 x 3.5 cm and reveals a previously sectioned cyst. The left fallopian tube measures 5.5 cm in length and 0.7 cm in average diameter and the fimbriated end appears to be adhesed to the cystic ovary. The cysts are 0.7 to 2.5 cm in greatest dimension and contain clear to bloody fluid. Information Systems Audit Manager sections are submitted in 12 cassettes as follows: 1 - anterior cervix, 2 - posterior cervix, 3 AND 4 - anterior uterine wall, 5 AND 6 - posterior uterine wall, 7 - myometrial nodules, 8 - right fallopian tube, 9 - right ovary, 10 - left fallopian tube, 11 AND 12 - left ovary. / AM:martina 08/30/18 TC:5 CPT: 23009 HEADER OPERATION: ERAS-lap robotic hysterectomy, BSO PRE-OP DIAGNOSIS: Bilateral ovarian cysts, menorrhagia, submucous fibroids TISSUE SUBMITTED: Bilateral tubes, ovaries and uterus MICROSCOPIC DESCRIPTION Slides are reviewed. MICROSCOPIC DIAGNOSIS Uterus, bilateral fallopian tubes and ovaries, hysterectomy and bilateral salpingo-oophorectomy: Cervix - mild acute and chronic inflammation and squamous metaplasia. Endometrium - early secretory endometrium. Myometrium - intramural leiomyomas (largest measuring 1.2 cm in greatest dimension). - Focal adenomyosis. Bilateral fallopian tubes - no pathologic diagnosis. Right ovary - physiologic corpus luteum cyst. Left ovary - endometriosis. - Physiologic corpus luteum cyst. SJ:martina 08/31/18 Signed Frantz Frias 08/31/18 <signature on file> Performed By: #### PHYST #### [facility] [address] [place], [address] HISTORY AND PHYSICAL Observed: 08/29/2018 Status: F Source: [place] EXAM 8:21 PM [facility] REPOSITORY [facility] Medical Records Department [address] [place] [address] History and Physical 08/29/182019 MR#: [id number] Acct: [id number] Name: ANDRY MCKEON Rep #: [id number] : 1965 52 From: Ramon Sanchez MD PCP: DENISE Martinez Status: PRE [facility] [place] [place] Y Location: [facility] [place] [place] History and Physical Date of Admission: 08/30/18 Surgical History and Physical Andry Mckeon, a 52 year old female 2 0 0 0 2, presents for RAVH/BSO on August 30, 2018 at 12:30. -- Bilateral Ovarian Cysts; Blood Loss Anemia; Menorrhagia; Submucous Fibroids -- Low Iron Count, Heavy Periods which began 1 year. Andry claims it started gradually and has been present 1 year. It occurs with menses. It is located in the vagina.; It is located in the lower abdomen. Andry characterizes it to be non-radiating. Andry characterizes the quality heavy menses. Severity is moderate and very concerned; Additional comments are: U/S showed submucous fibroid, bilateral septated ovarian cysts with largest 7 cm. MEDICATIONS HISTORY: ALLERGIES: NKA Infections - none Illnesses - no serious past illnesses Accidents - no injuries of consequence Hospitalizations - Childbirth Review of Systems: GENERAL - Denies fever, or chills SKIN - Denies skin changes EYES - Denies visual changes EARS - Denies difficulty hearing NOSE - Denies nasal congestion or bleeding MOUTH - Denies sore throat or difficulty swallowing NECK - Denies pain or swelling RESPIRATORY - Denies shortness of breath or wheezing CARDIOVASCULAR - Denies palpitations or chest pain GASTROINTESTINAL - Denies nausea, vomiting, diarrhea, constipation GENITOURINARY - Denies dysuria, frequency of urination, incontinence of urine MUSCULOSKELETAL - Denies joint or muscle pain NEUROLOGICAL - Denies localized numbness or weakness PSYCHIATRIC - Denies depression or anxiety ENDOCRINE - Denies heat or cold intolerance, weight loss or gain HEMATO-IMMUNOLOGIC - Denies excesive bleeding with cuts SOCIAL HISTORY: Alcohol Use - denies drinking Smoking - denies smoking Diet - no particular diet Lifestyle - moderate stress lifestyle and Exercise - very active Seat Belt Use - always Employer - [employer] 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 MENSTRUAL HISTORY: LMP Known?- DefiniteAmount/Duration - 4- 5 DAYS, Regularity - bleeds between periods, Frequency - monthly days, LMP - 08/02/18, Age Onset Menarche - 12 PAST PREGNANCIES: Total Pregnancies - 2; Full Term Pregnancies - 2; Premature - 0; Abortions, Induced - 0; Abortions, Spontaneous - 0; Ectopics - 0; Multiple Births - 0; Living Children - 2 SURGICAL HISTORY: 1. tonsils as child PHYSICAL EXAM BP- 110/72 Sitting, Right arm, regular cuff Temp- 97.8 Taken Orally Weight- 147.34267 lbs Height- 65 inch BMI:24.51 CONSTITUTIONAL - NAD, well nourished, and well developed SKIN - No rash, lesions, or ulcers HEENT - Normocephalic, PERRLA, EOMI NECK - No nodes, no nuchal rigidity and thyroid normal size and texture LYMPH NODES - Palpation of lymph nodes in neck and groins within normal limits LUNGS - CTA x2 without wheezes, crackles or rales CARDIAC - Regular rate and rhythm without rubs, murmurs, or gallops ABDOMEN - Without hepatosplenomegaly, distention, masses, rebound, or guarding; normal bowel sounds; no hernias EXTREMITIES - No edema or calf tenderness NEUROLOGICAL - Cranial nerves II-XII grossly intact PSYCHIATRIC - A and O to time, place, person, mood and affect External Genitial Vagina - non-tender without lesions Urethra/Urethral Meatus - non-tender Bladder - non-tender Vagina - vaginal [place] are pink and moist without loss of rugae and no evidence of atropy and blood in vagina Cervix - without cervical motion tenderness and has normal size and features without evident lesions and cervix high in vagina with minimal movement with tenaculum pull-down Uterus - multiparous size 6 cm AND wt 75-125 g Adnexa - clear without massess or tenderness ASSESSMENT/PLAN: 1. Blood Loss Anemia, Menorrhagia and Submucous Leiomyoma Of Uterus Discussed options for treatment and pt desires we proceed with RAVH/BSO. Discussed RBAs including possible need for laparotomy, HRT and all questions answered. 2. Ovarian Cyst Nos CA-125 mildly elevated but in normal range (23). EMBx OK. 08/29/182020 <Electronically signed by Ramon Sanchez MD> Date Ramon Sanchez MD Cosigner Signature: Date (if applicable) CC: RN CHARGE-C Mauro Hernández; Ramon Sanchez MD Signed TYPE AND SCREEN Collected: 08/25/2018 Status: F Source: MATHEWS 1:15 PM [facility] REPOSITORY Order Comment: Surgery Date: 08/30/18 Hx of Preganancy in last 3 Months No Ever experience any problems with transfusion(s)? N Hx of Transfusion in last 3 Months N Reason for Type AND Screen/Red Cells: SURGERY SURGICAL PROCEDURE: [facility] TYPE CODE TESTS RESULT OUT OF RANGE REFERENCE UNITS LAB B10.0800 O Normal BLOOD TYPE GEL POSITIVE LAB B100.4000 Normal Antibody NEGATIVE Screen Performed By: #### B101.7475 #### [facility] [place], [place], [id number] CBC-COMPLETE BLOOD CNT Collected: 08/25/2018 Status: F Source: OMAR NO DIFF 1:14 PM [facility] REPOSITORY Order Comment: Reason for Laboratory Test preop TYPE CODE TESTS RESULT OUT OF RANGE REFERENCE UNITS LAB L100.1000 4.4-11.0 K/mm3 Low WBC 4.3 LAB L100.1200 4.2-5.4 M/mm3 Low RBC 3.92 LAB L100.1300 12.0-15.0 g/dl Normal HGB 12.2 LAB L100.1400 37-47 % Normal HCT 38.3 LAB L100.1500 81-99 fL Normal MCV 97.7 LAB L100.1600 27.0-32.0 pg Normal MCH 31.1 LAB L100.1700 32-36 g/gl Low MCHC 31.9 LAB L100.1810 11.6-14.6 % Normal RDW CV 12.9 LAB L100.1820 35.1-43.9 fl High RDW SD 45.4 LAB L100.1900 150-450 K/mm3 Normal PLT 248 LAB L100.2000 6.2-12.0 fl Normal MPV 10.0 Performed By: #### L100.0500 #### [facility] [address] [facility] [place], [address] PROTHROMBIN TIME W/INR Collected: 08/25/2018 Status: F Source: OMAR 1:14 PM [facility] REPOSITORY Order Comment: Reason for Laboratory Test preop TYPE CODE TESTS RESULT OUT OF RANGE REFERENCE UNITS LAB L300.4150 11.7-14.9 SECONDS Normal PROTIME 13.1 LAB L300.4200 Normal INR 1.0 Performed By: #### L300.3900, L300.4310 #### [facility] [address] [place], [place], [id number] PARTIAL THROMBOPLAST Collected: 08/25/2018 Status: F Source: OMAR TIME 1:14 PM [facility] REPOSITORY Order Comment: Reason for Laboratory Test preop TYPE CODE TESTS RESULT OUT OF RANGE REFERENCE UNITS LAB L300.4310 24.1-36.2 Seconds Normal PTT 26.4 Performed By: #### L300.3900, L300.4310 #### [facility] [address] [place], [address] SERUM CREATININE AND Collected: 08/25/2018 Status: F Source: OMAR GFR 1:14 PM [facility] REPOSITORY Order Comment: Reason for Laboratory Test PREOP TYPE CODE TESTS RESULT OUT OF RANGE REFERENCE UNITS LAB L501.1100 0.55-1.02 mg/dL Normal 0.69 CREAT,SERUM Result Comment: The validity of the calculated GFR AND GFRAA in patients over 70 years has not been determined. Clinical correlation is essential. LAB L501.1110 >60 mL/min Normal EST GFR 94 Result Comment: Non- GFR Calc LAB L501.1115 >60 mL/min Normal EST GFR - AA 114 Result Comment: GFR Calc Performed By: #### L501.1105 #### [facility] [address] [place], [address] THYROID STIM HORMONE Collected: 07/28/2018 Status: F Source: OMAR (TSH) 10:15 AM [facility] REPOSITORY TYPE CODE TESTS RESULT OUT OF RANGE REFERENCE UNITS LAB L501.9520 0.358-3.74 uIU/mL Normal TSH 1.63 Performed By: #### L501.9520, L3100.5125 #### [facility] [address] [place] [place], [address] FOLLICLE STIMULATING Collected: 07/28/2018 Status: F Source: [place]MAR HORMONE 10:15 AM [facility] REPOSITORY TYPE CODE TESTS RESULT OUT OF RANGE REFERENCE UNITS LAB L3100.5125 mIU/mL Normal FSH 6.6 Result Comment: NORMAL REFERENCE RANGES FEMALE FOLLICULAR 2.3 - 12.6 mIU/mL MID-CYCLE PEAK 5.2 - 17.5 mIU/mL LUTEAL 1.7 - 12.9 mIU/mL POST-MENOPAUSAL ON MHT 5.9 - 72.8 mIU/mL NOT ON MHT 12.7 - 132.2 mlU/mL MALE 0.7 - 10.8 mIU/mL NEW TEST METHOD AND REFERENCE RANGES FEBRUARY 09, 2012 Performed By: #### L501.9520, L3100.5125 #### [facility] [address] [place], [address] CANCER ANTIGEN 125 Collected: 07/28/2018 Status: F Source: OMAR 10:15 AM [facility] REPOSITORY TYPE CODE TESTS RESULT OUT OF RANGE REFERENCE UNITS LAB L3100.5000 0.0-38.1 U/mL Normal CA125 23.8 2303 Result Comment: Abdifatah ECLIA methodology Performed at: - [facility] [id number] Director Of Social Services: Rodney Parker PhD, Phone: [phone] Performed By: #### L3100.5000 #### [facility] (refer to report for specific site) refer to report for address and phone number ENDOMETRIAL BX/CURETTINGS Observed: 07/22/2018 Status: F Source: OMAR 4:40 PM [facility] REPOSITORY Patient: ANDRY MCKEON : 1965 (52/F) Acct Num: [id number] Phys: Laura ALFORD,[facility] Unit Num: [id number] Loc: [facility] Specimen: [id number] Received: 07/22/181701 Spec Type: ENDOM BX/C TISSUES 1 TISSUES: Endometrium, NOS GROSS DESCRIPTION Received in fixative is one container labeled with the patient's name and designated endometrial biopsy. The specimen consists of multiple irregular fragments of red-zhao soft tissue that in aggregate measure 5.5 x 3 x 0.2 cm. The specimen is totally submitted in two cassettes. / AM:martina 07/23/18 TC:5 CPT: 85502 HEADER OPERATION: Endometrial biopsy PRE-OP DIAGNOSIS: Menorrhagia TISSUE SUBMITTED: Endometrial biopsy MICROSCOPIC DESCRIPTION Slides are reviewed. MICROSCOPIC DIAGNOSIS Endometrium, biopsy: Strips of weakly proliferative to inactive endometrium with focal stromal and glandular breakdown. Mild chronic endometritis. AM:martina 07/26/18 Signed Soy Dima 07/26/18 <signature on file> Performed By: #### PEMB #### [facility] [address] [place], [address] PROGRESS Observed: 06/25/2018 Status: COMPLETED Source: [place] 3:02 PM [facility] [place] REPOSITORY HNO ID: [id number] Author: Otilio Beebe Service: (none) Author Type: Physician Type: Progress Notes Filed: 06/25/2018 3:21 PM Note Text: Diagnosis: 1) ADAMA. HPI: The patient is an otherwise well old 52-year-old female who in September was diagnosed with influenza and treated with Tamiflu. She said she had many side effects including restlessness and insomnia as well as significant diarrhea for several days. After that she said she wasn't feeling that well and had a checkup and was found to have this really significant lab abnormality a neutrophil count of 1800. A CBC was repeated on 02/19/2018 and it revealed a total white count of 3200. The ANC was 1500. The remainder the differential was normal. The hemoglobin was 12.3 g/dL. Platelet count 1 49,000. Reticulocytes were within normal range. Vitamin B 12 was low normal at 251 pg per mL. 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 Patient has a sister who has a history of rheumatoid arthritis and takes methotrexate. She also has a history with Down syndrome who according the patient's report also has neutropenia. Presents for ongoing oncologic management. Interim history: Received parenteral iron. Feels a bit more energy. Takes H2 nelli at most twice a week. Menses regular--heavy with clots. Had colonoscopy 03/2018. PMH, medications and allergies personally reviewed by me today. Any changes documented in appropriate section. ROS: Constitutional: Denies episodes of fever and night sweats. Not significantly fatigued. Normal appetite. Neuro: Denies GARCIA, vertigo, dizziness and imbalance. Denies symptoms of neuropathy. HEENT: No recent change in voice, vision or hearing. Resp: Denies cough, wheeze and hemoptysis. Denies shortness of breath at rest. Denies JENSEN. CVS: Denies exertional chest pain, PND, orthopnea and LE edema. GI: Denies dysgeusia. Denies symptoms of stomatitis. Denies dysphagia and odynophagia. Denies reflux, n/v, change in bowel habits and abdominal pain. : Denies dysuria or gross hematuria. No symptoms of bladder outlet obstruction. Endo: Occasionally wakes up warm at night with hot flash. Denies polyuria and polydipsia. Denies heat and cold intolerance. Musculoskeletal: Denies bone, joint and muscular pain. Occasional low back pain--diagnosed with spondylosis. Derm: Denies rash. Denies jaundice and diffuse pruritis. Heme: Denies unusual bleeding and unexplained bruising. Psych: Normal mood. PHYSICAL EXAM: Vitals: Blood pressure 109/64, pulse 65, temperature 36.9 ?C (98.5 ?F), temperature source Oral, weight 66.2 kg (146 lb). Well-appearing and in no acute distress. EYES: Sclerae are anicteric bilaterally. ENT: Oral mucosa is unremarkable. There is no sign of thrush or mucositis. NECK: Supple. No enlargement of thyroid. LYMPHATIC: There is no palpable cervical, supraclavicular, axillary or inguinal adenopathy. RESPIRATORY: Inspiratory breath sounds are of normal intensity in all vo. No rales, wheezes or rhonchi. Expiratory phase is normal. CARDIOVASCULAR: Rhythm is regular. Normal intensity S1/S2. There is no gallop or murmur. ABDOMEN: The abdomen is nondistended. No organomegaly. No tenderness. Extremities: No swelling or edema. SKIN: No jaundice or rash. No petechiae. 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 No focal motor weakness. DTRs are symmetric and normal. MUSCULOSKELETAL: No joint swelling or tenderness. No muscle wasting. ASSESSMENT/PLAN: (D50.0) Iron deficiency anemia due to chronic blood loss (primary encounter diagnosis) Assessment: -Had colonoscopy 03/2018. -Heavy menses with clots. -Tolerating oral iron well. Plan: -Recheck CBC/Iron in about 6 months. -Continue oral iron. -OV/CBC/Iron studies in about a year. Otilio Beebe, DO OMAR ABS GR + CBC Collected: 06/25/2018 Status: F Source: [place] 2:58 PM [facility] REPOSITORY TYPE CODE TESTS RESULT OUT OF REFERENCE UNITS RANGE LAB WWBC 3.70-11.00 k/uL Omar WBC 5.17 LAB WRBC 3.90-5.20 m/uL Low [place] RBC 3.82 LAB WHGB 11.5-15.5 g/dL [place] Hemoglobin 11.8 LAB WHCT 36.0-46.0 % [place] Hematocrit 37.1 LAB WMCV 80.0-100.0 fL [place] MCV 97.1 LAB WMCH 26.0-34.0 pg [place] MCH 30.9 LAB WMCHC 30.5-36.0 g/dL Omar MCHC 31.8 LAB WRDW 11.5-15.0 % Omar RDW 14.0 LAB WPLT 150-400 k/uL Omar Platelet Cnt 319 LAB WMPV 9.0-12.7 fL [place] MPV 9.4 Result Comment: Test performed at: [facility], [address] [place] [address] Rd[address] [place] [address]. LAB ABGRAN 1.45-7.50 k/uL Absol Gran 2.70 Count IRON AND TIBC Collected: 06/25/2018 Status: F Source: [place] 2:58 PM [facility] REPOSITORY TYPE CODE TESTS RESULT OUT OF REFERENCE UNITS RANGE LAB IRN 41-186 ug/dL Iron High 220 LAB TIBC 232-386 ug/dL TIBC High 403 LAB SAT 15-57 % Transferrin Saturatn 55 Performed By: #### IRON, FERR #### [facility] [address] [address] FERRITIN Collected: 06/25/2018 Status: F Source: [place] 2:58 PM [facility] REPOSITORY TYPE CODE TESTS RESULT OUT OF REFERENCE UNITS RANGE LAB FERR 14.7-205.1 ng/mL Ferritin 19.0 Performed By: #### IRON, FERR #### [facility] [address] [address] CNOVSP Observed: 06/25/2018 Status: COMPLETED Source: [place] 2:50 PM [facility] REPOSITORY Visit (SP) Office (HEMMANOHAR) ANDRY MCKEON ([id number]) 1965 F Date Time Provider Department 06/25/18 2:50 PM OTILIO BEEBE During your visit today, we recorded the following information about you: Temperature Pulse Blood pressure Weight 98.5 degrees 65/minute 109/64 66.2 kg Otilio Beebe DO 06/25/2018 3:21 PM Signed Diagnosis: 1) ADAMA. HPI: The patient is an otherwise well old 52-year-old female who in September was diagnosed with influenza and treated with Tamiflu. She said she had many side effects including restlessness and insomnia as well as significant diarrhea for several days. After that she said she wasn't feeling that well and had a checkup and was found to have this really significant lab abnormality a neutrophil count of 1800. A CBC was repeated on 02/19/2018 and it revealed a total white count of 3200. The ANC was 1500. The remainder the differential was normal. The hemoglobin was 12.3 g/dL. Platelet count 1 49,000. Reticulocytes were within normal range. Vitamin B 12 was low normal at 251 pg per mL. 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 Patient has a sister who has a history of rheumatoid arthritis and takes methotrexate. She also has a history with Down syndrome who according the patient's report also has neutropenia. Presents for ongoing oncologic management. Interim history: Received parenteral iron. Feels a bit more energy. Takes H2 nelli at most twice a week. Menses regular--heavy with clots. Had colonoscopy 03/2018. PMH, medications and allergies personally reviewed by me today. Any changes documented in appropriate section. ROS: Constitutional: Denies episodes of fever and night sweats. Not significantly fatigued. Normal appetite. Neuro: Denies GARCIA, vertigo, dizziness and imbalance. Denies symptoms of neuropathy. HEENT: No recent change in voice, vision or hearing. Resp: Denies cough, wheeze and hemoptysis. Denies shortness of breath at rest. Denies JENSEN. CVS: Denies exertional chest pain, PND, orthopnea and LE edema. GI: Denies dysgeusia. Denies symptoms of stomatitis. Denies dysphagia and odynophagia. Denies reflux, n/v, change in bowel habits and abdominal pain. : Denies dysuria or gross hematuria. No symptoms of bladder outlet obstruction. Endo: Occasionally wakes up warm at night with hot flash. Denies polyuria and polydipsia. Denies heat and cold intolerance. Musculoskeletal: Denies bone, joint and muscular pain. Occasional low back pain--diagnosed with spondylosis. Derm: Denies rash. Denies jaundice and diffuse pruritis. Heme: Denies unusual bleeding and unexplained bruising. Psych: Normal mood. PHYSICAL EXAM: Vitals: Blood pressure 109/64, pulse 65, temperature 36.9 ?C (98.5 ?F), temperature source Oral, weight 66.2 kg (146 lb). Well-appearing and in no acute distress. EYES: Sclerae are anicteric bilaterally. ENT: Oral mucosa is unremarkable. There is no sign of thrush or mucositis. NECK: Supple. No enlargement of thyroid. LYMPHATIC: There is no palpable cervical, supraclavicular, axillary or inguinal adenopathy. RESPIRATORY: Inspiratory breath sounds are of normal intensity in all ov. No rales, wheezes or rhonchi. Expiratory phase is normal. CARDIOVASCULAR: Rhythm is regular. Normal intensity S1/S2. There is no gallop or murmur. ABDOMEN: The abdomen is nondistended. No organomegaly. No tenderness. Extremities: No swelling or edema. SKIN: No jaundice or rash. No petechiae. 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 No focal motor weakness. DTRs are symmetric and normal. MUSCULOSKELETAL: No joint swelling or tenderness. No muscle wasting. ASSESSMENT/PLAN: (D50.0) Iron deficiency anemia due to chronic blood loss (primary encounter diagnosis) Assessment: -Had colonoscopy 03/2018. -Heavy menses with clots. -Tolerating oral iron well. Plan: -Recheck CBC/Iron in about 6 months. -Continue oral iron. -OV/CBC/Iron studies in about a year. Otilio Beebe DO Referring Provider: OTILIO BEEBE [[id number]] Allergies As of Date: 06/25/2018 (No Known Allergies) Date Reviewed: 06/25/2018 Reviewed by: Hilda Catherine - Fully Assessed Reason for Visit: Established Patient [175] Primary Visit Diagnosis:Iron deficiency anemia due to chronic blood loss [D50.0] Follow-up and Disposition History Recorded Prescriptions as of 06/25/2018 Sig: FERROUS SULFATE 325 MG (65 MG* Take 325 mg by mouth 3 times * RANITIDINE 150 MG TABLET Take 150 mg by mouth once gogo* CRANBERRY EXTRACT ORAL Take 1 tablet by mouth once d* NAPROXEN 500 MG TABLET Take 500 mg by mouth twice da* Problem List As Of Date 06/25/2018 Noted Resolved Iron deficiency anemia due to chronic blood los*INVALID FOR* Encounter Status:Closed by OTILIO BEEBE DO on 06/25/18 RAUL Observed: 04/02/2018 Status: COMPLETED Source: [place] 12:00 AM [facility] REPOSITORY Telephone (HEMAWS) ANDRY MCKEON ([id number]) 1965 F Date Time Provider Department 04/02/18 OTILIO BEEBE During your visit today, we recorded the following information about you: Otilio Beebe DO 04/02/2018 8:19 AM Signed Patient's lab work indicates she is iron deficient. I'd like her to start taking OTC ferrous sulfate 1 tablet every other day. The cause of the iron deficiency may be due to menses over time which is a very common cause of iron deficiency in women, but we need to refer her to Dr. Comer or Dr. Mcdonald for consideration of EGD/colonoscopy to rule out any potential source of internal GI bleeding. This is a standard of care I recommend for all my patients with iron deficiency. Also OV/CBC/Iron studies with me in about 3 months. DO Mayra Chisholm Psr 04/02/2018 8:28 AM Signed 1st attempt to reach patient. Left message for patent to call to scheduled as indicated below. Aileen Rai, PSR 04/02/2018 9:02 AM Signed Patient returned call and is aware of message below - patient is schedule with Dr. Mcdonald 04/[address] Beebe 06/25. Mayra Ramos Psr 04/02/2018 9:51 AM Signed Patient calling stating she is declining consult for EGD/colonoscopy with Dr. Mcdonald. Patient had colonoscopy on 03/26 with no polyps, patient to have records sent to office. Patient would like to try adding more iron to diet and OTC iron tablets or writen a prescription sent to [facility]. Patient then like an iron lab recheck in 4- 6 weeks. Please advise and call patient. Marlys Partida LPN 04/02/2018 10:07 AM Signed Left message on patient's voicemail for a return call. Marlys Partida LPN 04/02/2018 11:04 AM Signed Spoke with patient. Colonoscopy results requested from Dr. Muir's office. Patient is aware to take OTC iron every other day and will follow up as scheduled 06/25/2018. Marlys Partida LPN Allergies As of Date: 04/02/2018 (No Known Allergies) Date Reviewed: 03/18/2018 Reviewed by: Anastasiya Finch (Judith) JUDITH Gaines - Fully Assessed Reason for Visit: Results [95] Prescriptions as of 04/02/2018 Sig: NAPROXEN 500 MG TABLET Take 500 mg by mouth twice da* Problem List As Of Date: 04/02/2018 (None) Encounter Status:Closed by RIGOBERTO RAI ALLISON on 04/02/18 IRON AND TIBC Collected: 04/01/2018 Status: F Source: [place] 4:23 PM [facility] REPOSITORY TYPE CODE TESTS RESULT OUT OF REFERENCE UNITS RANGE LAB IRN 41-186 ug/dL Low Iron 28 LAB TIBC 232-386 ug/dL TIBC High 403 LAB SAT 15-57 % Low Transferrin Saturatn 7 Performed By: #### IRON, FERR #### [facility] [address] [address] FERRITIN Collected: 04/01/2018 Status: F Source: [place] 4:23 PM [facility] REPOSITORY TYPE CODE TESTS RESULT OUT OF REFERENCE UNITS RANGE LAB FERR 14.7-205.1 ng/mL Low Ferritin 12.2 Performed By: #### IRON, FERR #### [facility] [address] [address] VITAMIN B12 Collected: 03/18/2018 Status: F Source: [place] 4:04 PM [facility] [place] REPOSITORY TYPE CODE TESTS RESULT OUT OF REFERENCE UNITS RANGE LAB B12 232-1245 pg/mL Vitamin B12 303 Performed By: #### B12, STREV, ANAIFS, MMA #### [facility] [address] [place], [place] [address] STAFF REV W CBCDIF Collected: 03/18/2018 Status: F Source: [place] 4:04 PM [facility] [place] REPOSITORY TYPE CODE TESTS RESULT OUT OF REFERENCE UNITS RANGE LAB WBC 3.70-11.00 k/uL WBC 6.42 LAB RBC 3.90-5.20 m/uL RBC Low 3.73 LAB HGB 11.5-15.5 g/dL Low Hemoglobin 10.9 LAB HCT 36.0-46.0 % Hematocrit 36.3 LAB MCV 80.0-100.0 fL MCV 97.3 LAB MCH 26.0-34.0 pG MCH 29.2 LAB MCHC 30.5-36.0 g/dL MCHC Low 30.0 LAB RDWCV 11.5-15.0 % RDW-CV 13.8 LAB PLTCT 150-400 k/uL Platelet Count 288 LAB MPV 9.0-12.7 fL MPV 10.5 LAB ANEUT % Neut% 60.3 LAB AANEUT 1.45-7.50 k/uL Abs Neut 3.87 LAB ALYMP % Lymph% 28.7 LAB AALYMP 1.00-4.00 k/uL Abs Lymph 1.84 LAB AMONO % [place]% 9.7 LAB AAMONO <0.87 k/uL Abs [place] 0.62 LAB AEOS % Eosin% 0.8 LAB AAEOS <0.46 k/uL Abs Eosin 0.05 LAB ABASO % Baso% 0.5 LAB AABASO <0.11 k/uL Abs Baso 0.03 LAB AUNRBC 0 /100 WBC NRBCs 0.0 LAB ABNRBC <0.01 k/uL Absolute nRBC <0.01 LAB DTYP DTYPE Auto Diff LAB SREVW Staff Review SEE COMMENT Result Comment: The Staff Review on this sample was cancelled because the hematology analyzer did not flag any parameters as requiring manual review. If there is a specific clinical concern for which yo u would like a staff pathologist to review the blood smear, please call Lab Client Services within 28 days. Account Credited LAB SRPATH Pathologist The Staff Review on this sample was cancelled because the hematology analyzer did not flag any parameters as requiring manual review. If there is a specific clinical concern for which you would like a staff pathologist to review the blood smear, please call Lab Client Services within 28 days. Result Comment: Account Credited Performed By: #### B12, STREV, ANAIFS, MMA #### [facility] [employer] [address] [id number] ARTIE BY IFA Collected: 03/18/2018 Status: F Source: [place] 4:04 PM [facility] REPOSITORY TYPE CODE TESTS RESULT OUT OF REFERENCE UNITS RANGE LAB ANASC Negative ARTIE Negative Result Comment: Normal range : negative at <1:80 serum dilution. Approximately 6% of patients with connective tissue diseases with low positive EIA values are negative by IFA. Recommend follow-up with specific antinuclear antibodies if clinically indicated. LAB ROLANDO Negative Negative ARTIE Titer Result Comment: Normal range : negative at <1:80 serum dilution. LAB ANAP ARTIE Not applicable Pattern for negative result. Performed By: #### B12, STREV, ANAIFS, MMA #### [facility] [employer] [address] [address] METHYLMALONIC ACID Collected: 03/18/2018 Status: F Source: [place] 4:04 PM [facility] REPOSITORY TYPE CODE TESTS RESULT OUT OF REFERENCE UNITS RANGE LAB MMA 79-376 nmol/L Methylmalonic Acid 240 Result Comment: This test was developed and its performance characteristics determined by [facility]'s [facility] [place] ([facility]). It has not been cleared or approved by the FDA. [facility] is regulated under CLIA as qualified to perform high-complexity testing. This test is used for clinical purposes. It should not be regarded as investigational or for research. Performed By: #### B12, STREV, ANAIFS, MMA #### [facility] [address] [id number] PROGRESS Observed: 03/18/2018 Status: COMPLETED Source: [place] 3:41 PM [facility] RE[facility]ITORY HNO ID: [id number] Author: Otilio Beebe Service: (none) Author Type: Physician Type: Progress Notes Filed: 03/18/2018 4:04 PM Note Text: Consult requested by Mauro Hernández PA-C for my opinion recommendations regarding a patient with mild neutropenia. The impression and plan will be communicated by way of the shared electronic record. HPI: The patient is an otherwise well old 52-year-old female who in September was diagnosed with influenza and treated with Tamiflu. She said she had many side effects including restlessness and insomnia as well as significant diarrhea for several days. After that she said she wasn't feeling that well and had a checkup and was found to have this really significant lab abnormality a neutrophil count of 1800. A CBC was repeated on 02/19/2018 and it revealed a total white count of 3200. The ANC was 1500. The remainder the differential was normal. The hemoglobin was 12.3 g/dL. Platelet count 1 49,000. Reticulocytes were within normal range. Vitamin B 12 was low normal at 251 pg per mL. 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 Patient has a sister who has a history of rheumatoid arthritis and takes methotrexate. She also has a history with Down syndrome who according the patient's report also has neutropenia. PMH, medications and allergies personally reviewed by me today. Any changes documented in appropriate section. ROS: Constitutional: Denies episodes of fever and night sweats. Not significantly fatigued. Normal appetite. Neuro: Denies GARCIA, vertigo, dizziness and imbalance. Denies symptoms of neuropathy. HEENT: No recent change in voice, vision or hearing. Resp: Denies cough, wheeze and hemoptysis. Denies shortness of breath at rest. Denies JENSEN. CVS: Denies exertional chest pain, PND, orthopnea and LE edema. GI: Denies dysgeusia. Denies symptoms of stomatitis. Denies dysphagia and odynophagia. Denies reflux, n/v, change in bowel habits and abdominal pain. : Denies dysuria or gross hematuria. No symptoms of bladder outlet obstruction. Endo: One missed menses. Occasionally wakes up warm at night. Denies polyuria and polydipsia. Denies heat and cold intolerance. Musculoskeletal: Denies bone, joint and muscular pain. Occasional low back pain--diagnosed with spondylosis. Derm: Denies rash. Denies jaundice and diffuse pruritis. Heme: Denies unusual bleeding and unexplained bruising. Psych: Normal mood. PHYSICAL EXAM: Vitals: Blood pressure 110/55, pulse 68, temperature 37.1 ?C (98.7 ?F), temperature source Oral, height 163 cm (5' 4.17), weight 67.1 kg (148 lb). Well-appearing and in no acute distress. EYES: Sclerae are anicteric bilaterally. ENT: Oral mucosa is unremarkable. There is no sign of thrush or mucositis. NECK: Supple. No enlargement of thyroid. LYMPHATIC: There is no palpable cervical, supraclavicular, axillary or inguinal adenopathy. RESPIRATORY: Inspiratory breath sounds are of normal intensity in all vo. No rales, wheezes or rhonchi. Expiratory phase is normal. CARDIOVASCULAR: Rhythm is regular. Normal intensity S1/S2. There is no gallop or murmur. ABDOMEN: The abdomen is nondistended. No organomegaly. No tenderness. Extremities: No swelling or edema. SKIN: No jaundice or rash. No petechiae. 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 No focal motor weakness. DTRs are symmetric and normal. MUSCULOSKELETAL: No joint swelling or tenderness. No muscle wasting. ASSESSMENT/PLAN: (D70.9) Neutropenia, unspecified type (HCC) (primary encounter diagnosis) Assessment: -In summary patient is an otherwise healthy 52-year-old female who was incidentally found to have mild neutropenia. She has no history of chronic or recurring bacterial or pyogenic infections. She has no symptoms to suggest underlying rheumatologic disorder. She has no constitutional symptoms. -I discussed the broad differential of neutropenia in layman's terms with her. I think it is juncture it's reasonable recheck B-12 given the low normal level previously and also obtain MMA. ARTIE will also be ordered. 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 She expressed understanding and agreement with this plan. Plan: -CBC was staff review to assess for possible LGLs -Recheck B-12 and MMA. -Check ARTIE. -Further testing and/or workup pending results of above. DO WIN ChisholmOVSP Observed: 03/18/2018 Status: COMPLETED Source: [place] 3:00 PM [facility] REPOSITORY Visit (SP) Office (SEAN) ANDRY MCKEON ([id number]) 1965 F Date Time Provider Department 03/18/18 3:00 PM OTILIO BEEBE During your visit today, we recorded the following information about you: Temperature Pulse Blood pressure Weight 98.7 degrees 68/minute 110/55 67.1 kg Height 1.63 m Anastasiya Gaines LPN, LPN 03/18/2018 3:44 PM Signed New patient, discuss recent DX: Neutropenia JUDITH Raphael DO 03/18/2018 4:04 PM Signed Consult requested by Mauro Hernández PA-C for my opinion recommendations regarding a patient with mild neutropenia. The impression and plan will be communicated by way of the shared electronic record. HPI: The patient is an otherwise well old 52-year-old female who in September was diagnosed with influenza and treated with Tamiflu. She said she had many side effects including restlessness and insomnia as well as significant diarrhea for several days. After that she said she wasn't feeling that well and had a checkup and was found to have this really significant lab abnormality a neutrophil count of 1800. A CBC was repeated on 02/19/2018 and it revealed a total white count of 3200. The ANC was 1500. The remainder the differential was normal. The hemoglobin was 12.3 g/dL. Platelet count 1 49,000. Reticulocytes were within normal range. Vitamin B 12 was low normal at 251 pg per mL. 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 Patient has a sister who has a history of rheumatoid arthritis and takes methotrexate. She also has a history with Down syndrome who according the patient's report also has neutropenia. PMH, medications and allergies personally reviewed by me today. Any changes documented in appropriate section. ROS: Constitutional: Denies episodes of fever and night sweats. Not significantly fatigued. Normal appetite. Neuro: Denies GARCIA, vertigo, dizziness and imbalance. Denies symptoms of neuropathy. HEENT: No recent change in voice, vision or hearing. Resp: Denies cough, wheeze and hemoptysis. Denies shortness of breath at rest. Denies JENSEN. CVS: Denies exertional chest pain, PND, orthopnea and LE edema. GI: Denies dysgeusia. Denies symptoms of stomatitis. Denies dysphagia and odynophagia. Denies reflux, n/v, change in bowel habits and abdominal pain. : Denies dysuria or gross hematuria. No symptoms of bladder outlet obstruction. Endo: One missed menses. Occasionally wakes up warm at night. Denies polyuria and polydipsia. Denies heat and cold intolerance. Musculoskeletal: Denies bone, joint and muscular pain. Occasional low back pain--diagnosed with spondylosis. Derm: Denies rash. Denies jaundice and diffuse pruritis. Heme: Denies unusual bleeding and unexplained bruising. Psych: Normal mood. PHYSICAL EXAM: Vitals: Blood pressure 110/55, pulse 68, temperature 37.1 ?C (98.7 ?F), temperature source Oral, height 163 cm (5' 4.17), weight 67.1 kg (148 lb). Well-appearing and in no acute distress. EYES: Sclerae are anicteric bilaterally. ENT: Oral mucosa is unremarkable. There is no sign of thrush or mucositis. NECK: Supple. No enlargement of thyroid. LYMPHATIC: There is no palpable cervical, supraclavicular, axillary or inguinal adenopathy. RESPIRATORY: Inspiratory breath sounds are of normal intensity in all vo. No rales, wheezes or rhonchi. Expiratory phase is normal. CARDIOVASCULAR: Rhythm is regular. Normal intensity S1/S2. There is no gallop or murmur. ABDOMEN: The abdomen is nondistended. No organomegaly. No tenderness. Extremities: No swelling or edema. SKIN: No jaundice or rash. No petechiae. 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 No focal motor weakness. DTRs are symmetric and normal. MUSCULOSKELETAL: No joint swelling or tenderness. No muscle wasting. ASSESSMENT/PLAN: (D70.9) Neutropenia, unspecified type (HCC) (primary encounter diagnosis) Assessment: -In summary patient is an otherwise healthy 52-year-old female who was incidentally found to have mild neutropenia. She has no history of chronic or recurring bacterial or pyogenic infections. She has no symptoms to suggest underlying rheumatologic disorder. She has no constitutional symptoms. -I discussed the broad differential of neutropenia in layman's terms with her. I think it is juncture it's reasonable recheck B-12 given the low normal level previously and also obtain MMA. ARTIE will also be ordered. 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 She expressed understanding and agreement with this plan. Plan: -CBC was staff review to assess for possible LGLs -Recheck B-12 and MMA. -Check ARTIE. -Further testing and/or workup pending results of above. Otilio Beebe DO Referring Provider: MAURO HERNÁNDEZ [[id number]] Allergies As of Date: 03/18/2018 (No Known Allergies) Date Reviewed: 03/18/2018 Reviewed by: Anastasiya Samaniego) JUDITH Gaines - Fully Assessed Reason for Visit: New Patient [[id number]] Reason For Visit History Recorded Primary Visit Diagnosis:Neutropenia, unspecified type (HCC) [D70.9] Order(s):VITAMIN B12 BLOOD [SQB12] Order #: [id number] FUTURE METHYLMALONIC ACID [SQMMA] Order #: [id number] FUTURE ARTIE BY IFA SCREEN [SQANAIFS] Order #: [id number] FUTURE STAFF REVIEW WITH CBC AND DIFF [SQSTREV] Order #: [id number] FUTURE Follow-up and Disposition History Recorded Prescriptions as of 03/18/2018 Sig: NAPROXEN 500 MG TABLET Take 500 mg by mouth twice da* Problem List As Of Date: 03/18/2018 (None) Visit Notes: >> Anastasiya Gaines LPN [facility] Mar 18, 2018 3:15 PM Status: Signed New patient, discuss recent DX: Neutropenia Anastasiya Gaines LPN Encounter Status:Closed by OTILIO BEEBE DO on 03/18/18 SCREENING MAMM (CAD), Observed: 02/20/2018 Status: F Source: [place] 8:09 AM [facility] REPOSITORY [facility] Imaging Services [address] [place] [address] SCREENING MAMM (CAD), BILAT MR#: [id number] Acct: [id number] Name: ANDRY MCKEON Rep #: [id number] : 1965 F 52 From: Alex Lundberg MD PCP: DENISE Martinez Status: REG CLI Study: SCREENING MAMM (CAD), BILAT Date of Exam: 02/20/18 Exam# [id number] Ordering Dr: Mauro Hernández MAMMOGRAPHY - BILATERAL SCREENING 3-D DON SYNTHESIS REASON FOR EXAM: Female, 52 years old. Bilateral Screening 3-D tomosynthesis PERTINENT HISTORY: No significant family history. TECHNIQUE: 2-D mammograms and 3-D Don synthesis of the breast (s) were performed. CAD was performed. COMPARISON: None. FINDINGS: The breast composition is composed of scattered fibroglandular density. Scattered benign calcifications are seen. No dense spiculated masses or suspicious microcalcifications are identified. No architectural distortion is identified. There is no skin thickening or retraction. There has been no significant change since the prior study. BI/SCREENING MAMM (CAD), BILAT IMPRESSION: No mammographic signs of malignancy. Routine yearly mammograms recommended. ASSESSMENT CATEGORY: BIRADS Category 2: Benign. A letter regarding these results will be sent to the patient by the facility within 30 days. FOLLOW UP RECOMMENDATION: Yearly follow up mammogram recommended. (A) Approximately 10% of breast cancers are not detected by mammography. A normal mammogram should not delay biopsy of a clinically suspicious abnormality. Electronically Signed: Alex Lundberg MD at 17:30 EDT , Service support , CC: DENISE Hernández Vault Manager: Signed CBC Collected: 02/19/2018 Status: F Source: [facility] 9:55 AM [facility] REPOSIT[facility] TYPE CODE TESTS RESULT OUT OF REFERENCE UNITS RANGE LAB WBC(LOINC) 4.60-10.80 10 3/mcL Low WBC 3.20 LAB RBCCT(LOINC 4.20-5.40 10 6/mcL ) Low RBC 4.05 LAB HGB(LOINC) 12.0-16.0 G/dL Hgb 12.3 LAB HCT(LOINC) 37.0-47.0 % Low Hct 36.9 LAB MCV(LOINC) 80.0-94.0 fL MCV 91.3 LAB MCH(LOINC) 27.0-31.2 pg MCH 30.3 LAB MCHC(LOINC) 33.0-37.0 G/dL MCHC 33.2 LAB RDW(LOINC) 11.5-14.5 % RDW 14.0 LAB PLT(LOINC) 130-400 10 3/mcL Platelet 249 LAB MPV(LOINC) 7.4-10.4 fL MPV 8.8 Performed By: #### CBC, RETO, ADIFF, ANEU #### [address] [address] #### FOL, B12 #### [place] [address] RETO (AO) Collected: 02/19/2018 Status: F Source: [facility] 9:55 AM [facility] REPOSITORY TYPE CODE TESTS RESULT OUT OF REFERENCE UNITS RANGE LAB MARJAN(LOINC) 0.2-2.3 % Reticulocytes, 0.5 Auto LAB IRF(LOINC) 0.20-0.46 IRF Immature Retic 0.40 Fraction Performed By: #### CBC, RETO, ADIFF, ANEU #### [address] [address] #### FOL, B12 #### [place] [address] .AUTO DIFF Collected: 02/19/2018 Status: F Source: [facility] 9:55 AM [facility] REPOSITORY TYPE CODE TESTS RESULT OUT OF REFERENCE UNITS RANGE LAB NAN(LOINC) 37.0-80.0 % Neutrophil % 47.5 LAB LYM(LOINC) 10.0-50.0 % Lymphocyte % 39.5 LAB MON(LOINC) 1.7-13.0 % Monocyte % 10.0 LAB EO(LOINC) 0.0-7.0 % Eosinophil % 2.5 LAB BAS(LOINC) 0.0-2.5 % Basophil % 0.5 LAB ABLYM(LOIN 0.77-3.85 10 3/mcL C) Lymphocyte, 1.30 Absolute LAB ANNA(LOINC 0.15-1.00 10 3/mcL ) Monocyte, 0.30 Absolute LAB AEOS(LOINC 0.00-0.40 10 3/mcL ) Eosinophil, 0.10 Absolute LAB ABAS(LOINC 0.00-0.19 10 3/mcL ) Basophil, 0.00 Absolute Performed By: #### CBC, RETO, ADIFF, ANEU #### [place] [address] #### FOL, B12 #### [place] [address] .NEUABS Collected: 02/19/2018 Status: F Source: [facility] 9:55 AM [facility] REPOSITORY TYPE CODE TESTS RESULT OUT OF REFERENCE UNITS RANGE LAB ANEU(LOINC) 2.85-6.16 10 3/mcL Low Neutrophil, 1.50 Absolute Performed By: #### CBC, RETO, ADIFF, ANEU #### [place] [address] #### FOL, B12 #### [place] [address] FOL Collected: 02/19/2018 Status: F Source: [facility] 9:55 AM [facility] REPOSITORY TYPE CODE TESTS RESULT OUT OF REFERENCE UNITS RANGE LAB FOL(LOINC) 1.1-20.0 ng/mL Folate 13.5 Performed By: #### CBC, RETO, ADIFF, ANEU #### [place] [address] #### FOL, B12 #### [place] [address] B12 Collected: 02/19/2018 Status: F Source: [facility] 9:55 AM [facility] REPOSITORY TYPE CODE TESTS RESULT OUT OF REFERENCE UNITS RANGE LAB B12(LOINC) 211-911 pg/mL Vitamin B12 251 Lvl Performed By: #### CBC, RETO, ADIFF, ANEU #### [place] [address] #### FOL, B12 #### [place] [address] GLU Collected: 02/02/2018 Status: F Source: [facility] 8:40 AM [facility] REPOSITORY TYPE CODE TESTS RESULT OUT OF REFERENCE UNITS RANGE LAB GLU(LOINC) 70-105 mg/dL Glucose Level 95 Performed By: #### GLU, LIPID #### [facility] [address] [place], [place] [address] LIPID Collected: 02/02/2018 Status: F Source: [facility] 8:40 AM [facility] REPOSITORY TYPE CODE TESTS RESULT OUT OF REFERENCE UNITS RANGE LAB CHOL(LOINC 131-200 mg/dL ) Cholesterol 185 Result Comment: Cholesterol Reference Interval: Less than 200 Desirable 200-239 Borderline high risk 240 and above High risk LAB TRIG(LOINC) 40-150 mg/dL Triglycerides 60 Result Comment: Triglyceride Reference Interval: Less than 150 Normal 150-199 Borderline high risk 200-499 High risk 500 or higher Very high risk LAB HD(LOINC) 35-90 mg/dL HDL Cholesterol 71 Result Comment: HDL Reference Interval: Less than 40 Low - high risk 60 or above Optimal/lowers risk LAB LDL(LOINC) 0-130 mg/dL LDL Cholesterol 102 Result Comment: LDL is a calculated result and requires a 12-hr fast. LDL Reference Interval: Less than 100 Optimal 100-129 Near or above optimal 130-159 Borderline high risk 160-189 High risk 190 and above Very high risk Performed By: #### GLU, LIPID #### [place] [address] [place], [place] [address] [employer] CYTOLOGY REPORT Observed: 02/02/2018 Status: F Source: [facility] 8:30 AM [facility] REPOSITORY . Pathology Reports Accession: Collected Date/Time: Received Date/Time: Pathologist: [id number] 02/02/2018 08:30 EDT 02/03/2018 18:00 EDT [facility] Cytology Report SPECIMEN: Specimen Description: Liquid Prep w/ HPV Specimen: Cervical/Endocervical Screening or Diagnostic: Screening RELEVANT HISTORY: LMP: 12/07/2017 [id number] SPECIMEN ADEQUACY: SATISFACTORY FOR EVALUATION ENDOCERVICAL/TRANSFORMATIONAL ZONE COMPONENT PRESENT INTERPRETATION/RESULTS: NEGATIVE FOR INTRAEPITHELIAL LESION OR MALIGNANCY ADJUNCTIVE TESTING: HIGH RISK HPV DNA TESTING ORDERED, REPORT TO FOLLOW UNDER SEPARATE COVER Electronically Signed by Pathology report verified by [facility] Screened by: GL Electronically signed by Blanquita Calabrese Sign-Out Date: 02/04/2018 16:03 Performing Lab: [facility], [address] [place] [address] Disclaimer The Pap test is a screening test for cervical cancer. As evidenced by published data, it is subject to both inherent false negative and false positive results. Your patient's results should be interpreted in context with pertinent clinical history including gynecological examination. Performed By: #### GYCR #### [address] [address] HPV Collected: 02/02/2018 Status: F Source: [facility] 8:30 AM [facility] REPOSITORY Order Comment: Order placed by AP_HPV_ORDER rule from [id number] TYPE CODE TESTS RESULT OUT OF REFERENCE UNITS RANGE LAB BFHPV(LOINC ) HPV Source Cervix LAB HPVINT(LOIN See Interp HPVN C) HPV Interp Result Comment: High Risk HPV Typing: NEGATIVE HPV types 16, 18, 31, 33, 35, 39, 45, 51, 52, 56, 58, 59, 66 and 68 DNA were undetectable or below the pre-set threshold. The johana High-Risk HPV DNA Test is not intended for use as a screening device for Pap normal women under age 30 and is not intended to substitute for regular Pap screening. The johana High-Risk HPV DNA Test is designed to augment existing methods for the detection of cervical disease and should be used in conjunction with clinical information derived from other diagnostic and screening tests, physical examinations and full medical history in accordance with appropriate patient management procedures. NOTE: A negative result does not preclude the presence of HPV infection because results depend on adequate specimen collection, absence of inhibitors and sufficient DNA to be detected. See Interp HPVN Performed By: #### HPV #### [address] [address] XR CHEST 2 VIEWS Observed: 10/21/2017 Status: F Source: [facility] 2:59 PM [facility] REPOSITORY ORIGINAL XR CHEST 2 VIEWS Clinical information: SOB/Cough/Fever No prior studies are available for comparison. The heart is normal in size and configuration. Pulmonary vascular pattern is normal. The lungs are clear and normally aerated. The pleural margins and bony thorax are unremarkable. IMPRESSION: No acute intrathoracic abnormality. Interpreted By: Alex Dewitt MD Preliminary Report By: Alex Dewitt MD Electronically Signed By: Alex Dewitt MD Dictated Date: 10/21/2017 3:09:17 PM Prelim Date: 10/21/2017 3:09:17 PM Sign Date: 10/21/2017 3:11:30 PM CBC Collected: 10/21/2017 Status: C Source: [facility] 2:45 PM [facility] REPOSITORY TYPE CODE TESTS RESULT OUT OF RANGE REFERENCE UNITS LAB WBC(LOINC) 4.60-10.80 10 3/mcL Abnormal Alert WBC 2.00 LAB RBCCT(LOIN 4.20-5.40 10 6/mcL C) RBC 4.22 LAB HGB(LOINC) 12.0-16.0 G/dL Hgb 12.4 LAB HCT(LOINC) 37.0-47.0 % Hct 38.1 LAB MCV(LOINC) 80.0-94.0 fL MCV 90.4 LAB MCH(LOINC) 27.0-31.2 pg MCH 29.4 LAB MCHC(LOINC 33.0-37.0 G/dL ) Low MCHC 32.5 LAB RDW(LOINC) 11.5-14.5 % RDW 14.0 LAB PLT(LOINC) 130-400 10 3/mcL Platelet 139 LAB MPV(LOINC) 7.4-10.4 fL MPV 8.0 Performed By: #### CBC, GFR, BMP, DIFF, MORPH #### [address] [address] #### CBCPR #### [place] [address] .GFR Collected: 10/21/2017 Status: F Source: [facility] 2:45 [facility] REPOSITORY TYPE CODE TESTS RESULT OUT OF REFERENCE UNITS RANGE LAB GFRAA(LOINC ml/min/1.73 ) sqm GFR 112 [employer] Result Comment: GFR Population mean for , Non- Americans Ages 20-29 = 116 mL/min/1.73 sq.m. Ages 30-39 = 107 mL/min/1.73 sq.m. Ages 40-49 = 99 mL/min/1.73 sq.m. Ages 50-59 = 93 mL/min/1.73 sq.m. Ages 60-69 = 85 mL/min/1.73 sq.m. Ages 70+ = 75 mL/min/1.73 sq.m. Chronic Kidney Disease: Less than 60 mL/min/1.73 square meters End Stage Renal Disease: Less than 15 mL/min/1.73 square meters LAB GFRNO(LOINC) ml/min/1.73sqm GFR Non- >60 Result Comment: GFR Population mean for , Non- Americans Ages 20-29 = 116 mL/min/1.73 sq.m. Ages 30-39 = 107 mL/min/1.73 sq.m. Ages 40-49 = 99 mL/min/1.73 sq.m. Ages 50-59 = 93 mL/min/1.73 sq.m. Ages 60-69 = 85 mL/min/1.73 sq.m. Ages 70+ = 75 mL/min/1.73 sq.m. Chronic Kidney Disease: Less than 60 mL/min/1.73 square meters End Stage Renal Disease: Less than 15 mL/min/1.73 square meters Performed By: #### CBC, GFR, BMP, DIFF, MORPH #### [address] [address] #### CBCPR #### [address] [address] BMP Collected: 10/21/2017 Status: F Source: [facility] 2:45 PM [facility] REPOSITORY TYPE CODE TESTS RESULT OUT OF REFERENCE UNITS RANGE LAB 1547-9 70-105 mg/dL GLUCOSE 102 LAB NA(LOINC) 136-146 mEq/L Sodium Level 140 LAB K(LOINC) 3.5-5.1 mEq/L Potassium Level 3.7 LAB CL(LOINC) 98-107 mEq/L Chloride 101 LAB CO2(LOINC) 22-29 mEq/L CO2 High 31 LAB EBAL(LOINC mEq/L ) Electrolyte Balance 8.0 LAB BUN(LOINC) 7.0-18.0 mg/dL Low BUN 5.6 LAB CRE(LOINC) 0.6-1.2 mg/dL Creatinine Lvl (s) 0.7 LAB BC(LOINC) 7-27 ratio BUN/Creatinine 8 Ratio LAB CA(LOINC) 8.4-10.2 mg/dL Low Calcium Lvl 8.0 Performed By: #### CBC, GFR, BMP, DIFF, MORPH #### [address] [address] #### CBCPR #### [address] [address] .MANUAL DIFF Collected: 10/21/2017 Status: F Source: [facility] 2:45 PM [facility] REPOSITORY TYPE CODE TESTS RESULT OUT OF REFERENCE UNITS RANGE LAB NEUM(LOINC 37.0-80.0 % ) Neutrophil %, 39.0 Manual LAB LYMM(LOINC 10.0-50.0 % ) Lymphocyte %, 33.0 Manual LAB EOM(LOINC) 1.7-13.0 % Monocyte %, Manual 13.0 Result Comment: 0.0 LAB BASM(LOINC) 0.0-2.5 % Basophil %, Manual 0.0 LAB BAND(LOINC) 0.0-5.0 % Bands High 15.0 LAB ANEUM(LOINC) 2.85-6.16 10 3/mcL Low Neutrophil, Abs Manual 0.90 LAB ABLYMM(LOINC) 0.77-3.85 10 3/mcL Lymphocyte, Abs Manual 0.80 LAB AMONM(LOINC) 0.15-1.00 10 3/mcL Monocyte, Abs Manual 0.30 LAB AEOSM(LOINC) 0.00-0.40 10 3/mcL Eosinophil, Abs Manual 0.00 LAB ABASM(LOINC) 0.00-0.19 10 3/mcL Basophil, Abs Manual 0.00 Performed By: #### CBC, GFR, BMP, DIFF, MORPH #### [address] [address] #### CBCPR #### [address] [address] .MORPH Collected: 10/21/2017 Status: F Source: [facility] 2:45 PM [facility] REPOSITORY TYPE CODE TESTS RESULT OUT OF REFERENCE UNITS RANGE LAB PLTE(LOINC) Platelet Normal Estimate Performed By: #### CBC, GFR, BMP, DIFF, MORPH #### [address] [address] #### CBCPR #### [address] [address] .CBC PATH REVIEW Collected: 10/21/2017 Status: F Source: [facility] 2:45 PM [facility] REPOSITORY TYPE CODE TESTS RESULT OUT OF REFERENCE UNITS RANGE LAB CBCPR(LOINC ) CBC Path Marked Review absolute neutropenia, mild thrombocytopen ia. Result Comment: Electronically signed by: CARSON GALEANA MD 10.22.2017 07:54 EST Performed By: #### CBC, GFR, BMP, DIFF, MORPH #### [address] [address] #### CBCPR #### [facility] [address] [place] [address] ALLERGIES ALLERGIES DATE TYPE / CODE NAME / CODE REACTION SEVERITY SOURCE 08/23/2018 Drug No Known Unknown [facility] Allergy/416 Allergies/Q52459 Hospital [id number](SNOM 0388(RXNORM) Repository ED CT) Drug NO KNOWN [facility] Class/01807 ALLERGIES Main [place] 1003(SNOMED Repository CT) ENCOUNTERS ENCOUNTERS ADMIT/DISCHARGE ACCOUNT NUMBER ADMITTING ENCOUNTER LOCATION SOURCE CLASS 10/07/2018 [id number] Ambulatory [facility] ding:LABSPEC Repository 09/22/2018/09/22/19 [id number] Ambulatory [address] Repository 08/30/2018/08/31/20 [id number] Ambulatory [address] ding:SDCRoom Repository : MS210 08/25/2018 [id number] Ambulatory [facility]: [facility] Repository 07/28/2018 [id number] Ambulatory [facility] ding:WOBLAB Repository 07/22/2018 [id number] Ambulatory [facility] ding:LABSPEC Repository 06/25/2018/06/28/20 [id number] Ambulatory [address] Repository 06/25/2018/06/25/20 [id number] Ambulatory [address] Repository 04/01/2018/04/01/20 [id number] Ambulatory [address] Repository 03/18/2018/03/18/20 [id number] Ambulatory [address] Repository 03/18/2018/03/19/20 [id number] Ambulatory [address] Repository 02/20/2018 [id number] Ambulatory [facility] ding:OPBI Repository 02/19/2018/02/24/20 [id number] Ambulatory [address] ding:[facility] Repository 02/02/2018/05/19/20 [id number] Ambulatory [address] ding:[facility] Repository 10/21/2017/10/21/19 [id number] Emergency BBuilding:ER [address] Repository PAYERS PAYERS ENCOUNTER GUARANTOR PAYER SUBSCRIBER SOURCE 10/07/2018 ANDRY KU3 Primary MIS W Omar E MAIN [place] Insurance:MEDICAL GERBERDOB: [facility] [id number] Hospital 55277Ufp: (330) Number: Repository [phone] () [id number] Date:[id number] [place] [id number]: 10/07/2018 Secondary NOT GIVENUNK Omar Insurance:SELF PAY [facility] Number: Effective Repository Date:2018-10-07 08/30/2018 ANDRY MCKEON783 Primary MIS W [place] [address] [place] Insurance:MEDICAL GERBERDOB: [facility] [id number] Hospital [address]Qdv: (330) Number: Repository [phone] () [id number] Date:7690-87-45CT[place] [id number]: 08/30/2018 Secondary NOT GIVENUNK [place] Insurance:SELF PAY [facility] Number: Effective Repository Date:2018-08-25 08/25/2018 ANDRY [id number] Primary MIS W [place] [address] [place] Insurance:MEDICAL GERBERDOB: [facility] [id number] Hospital [address]Qde: (330) Number: Repository [phone] () [id number] Date:[id number] [address]EU: 08/25/2018 Secondary NOT GIVENUNK Omar Insurance:SELF PAY [facility] Number: Effective Repository Date:2018-08-25 07/28/2018 ANDRY MCKEON783 Primary MSI W [place] E MAIN [place] Insurance:MEDICAL GERBERDOB: [facility] [id number] Hospital [address]Pgj: (330) Number: Repository [phone] () [id number] Date:[id number] [address] [address]FV: 07/28/2018 Secondary NOT GIVENUNK Omar Insurance:SELF PAY [facility] Number: Effective Repository Date:2018-07-28 07/22/2018 ANDRY Anurag [id number] Primary MIS Arun [place] [address] [place] Insurance:MEDICAL GERBERDOB: [facility] [id number] Hospital [address]Okw: (330) Number: Repository [phone] () [id number] Date:[id number] [address] [address]JB: 07/22/2018 Secondary NOT GIVENUNK [place] Insurance:SELF PAY [facility] Number: Effective Repository Date:2018-07-22 02/20/2018 ANDRY MCKEON783 Primary MIS [place] [address] [place] Insurance:MEDICAL GERBERDOB: [facility] [id number] Hospital [address]Bka: Number: Repository [phone] [id number] () Date:[id number] [address] [address]LH: 02/20/2018 Secondary NOT GIVENUNK Omar Insurance:SELF PAY [facility] Number: Effective Repository Date:2018-02-02 02/19/2018 ANDRY Anurag Primary MIS Dias [facility] GERBERDOB: Insurance:MEDICAL GERBERDOB: [facility] [id number] [id number] Repository MAIN [place] Number: [address] [place] [place] [id number] [address]~[email or web address] Date:2018-02-1930439Xst: [phone]) [email or web address].COMTel: [id number] [phone] Name:BPO BOX (HP)Tel: (000) (HP)Tel: [phone]) [address], [place] 000[address] (WP) [phone] (WP) [address]ZF: 02/02/2018 [facility] BANNERBERB: [facility] E MUTUAL [address] [place] [address] [id number] Repository MAIN [place] Number: E [address] [place], [place] [id number] [place] [address]~[email or web address] Date:2018-02-0206704Akj: (330) [email or web address].COMTel: [id number] [phone] Name:BPO BOX (HP)Tel: (000) (HP)Tel: [phone]) [address] [place] [address] (WP) [phone] (WP) [address]YU: 10/21/2017 [facility]ag [facility]:MEDICAL BANNERBERB: [facility] E [facility] [id number] Repository MAIN [place] Number: E [address] [place], [place] [id number] [place] [address]~[email or web address] Date:2017-10-2160476Lvq: [phone]) [email or web address].COMTel: [id number] [phone] Name:BPO BOX (HP)Tel: (000) (HP)Tel: [phone]) [address], [place] [address] (WP) [phone] (WP) [phone]:
== END ==
PROVIDERS: Visit Provider Obstetrics & Gynecology
DX: R30.0 Dysuria (principal)
CPT/HCPCS: 87086

== ENCOUNTER → 2019-06-11 | Outpatient (CLI) | payer OTHER, SELFPAY ==
[2018-08-30 16:21] VITALS: BMI 24.5
--- NOTE | 2019-06-11 08:36 | BI_ITS ---
MAMMOGRAPHY - BILATERAL SCREENING REASON FOR EXAM: Female, 53 years old. Routine annual screening examination. PERTINENT HISTORY: Non-contributory. TECHNIQUE: Digital bilateral breast wilbur (3D mammographic acquisition) in the CC and MLO projections. 2-D mediolateral oblique (MLO) and craniocaudad (CC) views of both breasts were obtained. CAD: Full Field Digital Mammography with Computer Added Detection was performed. COMPARISON: Comparison is made with prior examination dated February 20, 2018. FINDINGS: Breast Composition: The breasts are heterogeneously dense, which may obscure small masses. There are no dominant masses or suspicious calcifications. Small bilateral benign appearing axillary lymph nodes. No other significant abnormalities are identified. There has been no significant change since the prior study. BI/SCREEN MAMM (CAD) W/WILBUR BILAT IMPRESSION: Stable bilateral screening mammogram. Yearly follow-up mammogram recommended. (A) ASSESSMENT CATEGORY: BIRADS Category 2: Benign. A letter regarding these results will be sent to the patient by the facility within 30 days. Approximately 10% of breast cancers are not detected by mammography. A normal mammogram should not delay biopsy of a clinically suspicious abnormality. [id number] Electronically Signed: Julio César Gomez, at 8:17 EDT , Service support ,
== END | disposition home or self-care (01) ==
LOC: OPBI 08:34
PROVIDERS: Family Provider Nurse Practitioner Family; PCP Nurse Practitioner Family; Referring Provider Nurse Practitioner Family; Visit Provider Nurse Practitioner Family
DX: Z12.31 Encounter for screening mammogram for malignant neoplasm of breast (principal)
CPT/HCPCS: 77063; 77067

== ENCOUNTER → 2020-08-01 | Outpatient (CLI) | payer OTHER, SELFPAY ==
[2020-08-01 08:41] VITALS: BMI 25.8
== END | disposition home or self-care (01) ==
LOC: LABSPEC 12:41
PROVIDERS: PCP Nurse Practitioner Family; Referring Provider Nurse Practitioner Women's Health; Visit Provider Nurse Practitioner Women's Health
DX: N89.8 Other specified noninflammatory disorders of vagina (principal)
CPT/HCPCS: 87070; 87205

== ENCOUNTER → 2020-09-25 12:26 | Outpatient (CLI) | payer BC, SELFPAY ==
[2020-08-01 08:41] VITALS: BMI 25.8
--- NOTE | 2020-09-25 12:29 | BI_ITS ---
MAMMOGRAPHY - BILATERAL SCREENING REASON FOR EXAM: Female, 54 years old. Routine annual screening examination. PERTINENT HISTORY: Non-contributory. TECHNIQUE: Digital bilateral breast wilbur (3D mammographic acquisition) in the CC and MLO projections. 2-D mediolateral oblique (MLO) and craniocaudad (CC) views of both breasts were obtained. CAD: Full Field Digital Mammography with Computer Added Detection was performed. COMPARISON: Comparison is made with prior study dated 06/11/2019. FINDINGS: Breast Composition: The breasts are heterogeneously dense, which may obscure small masses. There are no dominant masses or suspicious calcifications. Stable small benign appearing bilateral axillary lymph nodes. No other significant abnormalities are identified. There has been no significant change since the prior study. BI/SCREEN MAMM (CAD) W/WILBUR BILAT IMPRESSION: Stable bilateral screening mammogram. Yearly follow-up mammogram recommended. (A) ASSESSMENT CATEGORY: BIRADS Category 2: Benign. A letter regarding these results will be sent to the patient by the facility within 30 days. Approximately 10% of breast cancers are not detected by mammography. A normal mammogram should not delay biopsy of a clinically suspicious abnormality. [id number] Electronically Signed: Julio César Gomez, at 13:24 EST , Service support ,
== END ==
PROVIDERS: PCP Nurse Practitioner Family; Referring Provider Nurse Practitioner Women's Health; Visit Provider Nurse Practitioner Women's Health
DX: Z12.31 Encounter for screening mammogram for malignant neoplasm of breast (principal)
CPT/HCPCS: 77063; 77067

== ENCOUNTER 2021-05-20 16:00 | Emergency (ER) | payer BC, SELFPAY ==
[2021-05-20 16:01] VITALS: BP 103/75; PULSE 75; RESP 16; TEMP 37; O2SAT 97; BMI 25.4
--- NOTE | 2021-05-20 16:51 | EX.ED.DYSGE1 ---
HPI History of Present Illness Chief Complaint: General Illness Informant: patient and spouse/S.O. Onset/Context/Timing Onset: Weeks Context: Gradual Onset Timing: Continuous Current Severity: Mild Maximum Severity: Mild Narrative Narrative: 55-year-old female dyspnea past medical history other than leukopenia. Has had a prior hysterectomy. States that she tested Covid positive on Thursday. A week ago she started female with low-grade fever. She has had diarrhea since Thursday a week ago. She denies nausea or vomiting. She denies abdominal pain. She denies dysuria. She has not been vaccinated for Covid. Prior similar symptoms: No Recent Illness/Hospitalization: No PFSH PFSH Medical History Leukopenia Low iron Pars defect with spondylolisthesis Home Medications cranberry 500 mg PO DAILY 08/23/18 [History Last Taken Unknown] iron, carbonyl 65 mg PO MOWEFR 08/23/18 [History Last Taken Unknown] loperamide 2 mg PO PRN PRN 08/23/18 [History Last Taken Unknown] naproxen 500 mg PO DAILY PRN PRN 08/23/18 [History Last Taken Unknown] aspirin 81 mg tablet,delayed release 81 mg PO DAILY 08/01/20 [History Last Taken Unknown] estradiol See Rx Instructions VAGINAL .COMPLEX #42.5 g 08/01/20 [Rx Last Taken Unknown] evening primrose oil 500 mg capsule 500 mg PO TID 08/01/20 [History Last Taken Unknown] famotidine 20 mg tablet 20 mg PO DAILY 08/01/20 [History Last Taken Unknown] estradiol 1 mg tablet 1 mg PO DAILY #100 tab 09/04/20 [Rx Last Taken Unknown] Allergy/AdvReac Type Severity Reaction Status Date / Time No Known Allergies Allergy Verified 05/20/21 16:03 Family History Mother CHF (congestive heart failure) Father Bladder cancer CHF (congestive heart failure) Surgical History History of colonoscopy History of tonsillectomy History of total hysterectomy with bilateral salpingo-oophorectomy (BSO) Social History household members: spouse number of children: 2 current occupational status: employed 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 Body aches. Diarrhea. Covid positive. Review of Systems ROS Unobtainable: Denies due to encephalopathy Constitutional Constitutional ED: Reports chills and fever(s) Eyes Eyes: Denies change in vision ENT ENT ED: Denies ear pain or sore throat Cardiovascular Cardiovascular: Denies chest pain or palpitations Respiratory/Chest Respiratory/Chest: Reports cough; Denies dyspnea Gastrointestinal Gastrointestinal: Reports diarrhea; Denies abdominal pain, nausea or vomiting Genitourinary Genitourinary ED: Denies dysuria or hematuria Musculoskeletal Musculoskeletal: Reports myalgias Integumentary Denies abscess or rash Neurologic Neurologic: Reports headache(s) Psychiatric Psychiatric: Denies depression Endocrine Endocrinology: Denies polyuria Allergic/Immunologic Allergic/Immunologic ED: Denies urticaria EXAM Physical Exam Narrative Exam Narrative: Middle-aged female no acute distress. Vital signs stable afebrile. 37% positive. HEENT exam. Neck nontender. No lymphadenopathy. No JVD. Lungs clear to auscultation bilaterally. Heart regular rhythm rate 75 no murmur. Abdomen soft nontender normal bowel sounds no peritoneal signs. Moving all 4 extremities. No edema. Calves nontender. Normal pathology secretary strength. Normal dorsi plantar flexion. Back nontender. Neurologically awake alert no focal motor deficits. Const Vital Signs: 05/20/21 16:01 Temperature 98.6 F Temperature Source Temporal Pulse Rate 75 Respiratory Rate 16 Blood Pressure 103/75 Blood Pressure Mean 84 Pulse Ox 97 Oxygen Delivery Method Room Air Positive well nourished and well developed; Negative for obese, cachectic, contractures or unkempt General Appearance ED: well developed and NAD; Negative for unkempt, cachectic or contractures Nutritional Appearance: Negative for cachectic or obese HEENT Reports dry mucous membranes Negative for trauma or tenderness Mouth ED: Yes dry mucous membranes Mouth: dry mucous membranes Eyes PERRL and EOMs intact bilaterally Neck no lymphadenopathy, supple and no JVD General: Negative for tenderness Chest Wall inspection of chest normal and palpation of chest normal Resp normal respiratory effort and clear to auscultation bilaterally Effort and Inspection: Negative for pain with movement Auscultation: Negative for rales, rhonchi or wheezes Cardio regular rate, regular rhythm, S1 normal heart sound, S2 normal heart sound and no murmurs GI normal to inspection, nondistended, normoactive bowel sounds, non-tender, non-distended and no masses Auscultation: normoactive bowel sounds Palpation: soft; Negative for tender, guarding or rebound tenderness present Back/Spine no CVA tenderness General Back: Negative for CVA tenderness Extremity normal to inspection General Extremety ED: Negative for edema or tenderness General Extremity: Negative for edema Neuro oriented x3 and CN's II-XII intact bilaterally Sensorium / Orientation: alert; Negative for orientation impaired, lethargic or stuporous Motor Exam: strength 5/5 throughout Psych mental status grossly normal Appearance: Negative for unkempt Skin no rashes or lesions noted and no wounds MDM MDM MDM Narrative Medical decision making narrative: 55-year-old female Covid positive on Thursday has had symptoms for a week. Primarily diarrhea and clinically appears dehydrated. Screening labs and a chest x-ray be obtained. Should be treated with 2 L normal saline IV. Repeat exam patient is doing well at 7:12 PM. She feels much better after the IV fluids. She and her discussed all of her test results. They are comfortable with her being discharged home. She already has a prescription of Zofran for nausea. She will use Imodium for the diarrhea. Follow-up or return if feeling worse. Lab Data Attestation: I reviewed the patient's lab results. Lab results narrative: CBC shows white count 2.5. Hemoglobin 13.5. Patient has a history of leukopenia. Electrolytes show potassium of 3.0 which would go along with the recent diarrhea. Gap of 4. Normal creatinine. Glucose 108. Liver enzymes unremarkable. Labs: Laboratory Results - last 24 hr 05/20/21 05/20/21 17:07 17:07 WBC 2.5 L RBC 4.52 Hgb 13.5 Hct 42.4 MCV 93.8 MCH 29.9 MCHC 31.8 L RDW Std Deviation 43.1 RDW Coeff of Annalisa 12.4 Plt Count 206 MPV 9.3 Immature Gran % (Auto) 0.000 Neut % (Auto) 48.0 Lymph % (Auto) 40.2 [place] % (Auto) 11.4 H Eos % (Auto) 0.0 Baso % (Auto) 0.4 Absolute Neuts (auto) 1.2 L Absolute Lymphs (auto) 0.99 Nucleated RBC % 0 Differential Comment SCANNED Sodium 142 Potassium 3.0 L Chloride 106 Carbon Dioxide 32.0 Anion Gap 4 L BUN 6 L Creatinine 0.51 L Estim Creat Clear Calc 107.63 Est GFR (MDRD) Af Amer 159 Est GFR (MDRD) Non-Af 132 BUN/Creatinine Ratio 11.7 Glucose 108 H Calcium 8.3 L Total Bilirubin 0.30 AST 35 ALT 39 Alkaline Phosphatase 63 Total Protein 6.9 Albumin 3.4 Globulin 3.5 Albumin/Globulin Ratio 1.0 Radiography Chest X-Ray - ED: 1 View, Read by ED Physician, Normal, Heart, Lungs, Mediastinum, Bony Structures, No Acute Disease and Chronic Changes Diagnostic Testing: Radiology Impression Chest X-Ray 05/20/21 17:35 IMPRESSION: Normal x-ray examination of the chest. Electronically Signed: Suleiman Silver DO at 17:57 EDT Tel , Service support , Discharge Plan Triage Chief Complaint: General Illness ED Provider: Chepe Walker Dx/Rx/DC Orders Clinical Impression: COVID-19, Acute hypokalemia, Acute dehydration Instructions: ED Dehydration (Adult), ED Hypokalemia, Human Coronaviruses Prescriptions: No Action aspirin 81 mg tablet,delayed release (DR/EC) 81 mg PO DAILY RF: 0 famotidine 20 mg tablet 20 mg PO DAILY RF: 0 evening primrose oil 500 mg capsule 500 mg PO TID RF: 0 estradiol [Estrace] 0.01 % (0.1 mg/gram) cream See Rx Instructions VAGINAL .COMPLEX Qty: 42.5 RF: 2 loperamide 2 MG capsule 2 mg PO PRN PRN (Reason: Diarrhea) RF: 0 cranberry 500 MG capsule 500 mg PO DAILY RF: 0 naproxen 500 MG tablet 500 mg PO DAILY PRN PRN (Reason: Pain) RF: 0 iron, carbonyl 45 MG capsule 65 mg PO MOWEFR RF: 0 estradiol 1 mg tablet 1 mg PO DAILY Qty: 100 RF: 3 Primary Care Provider: Mauro Hernández NP Referrals: Mauro Hernández CRISIS COUNSELOR, CRISIS COUNSELOR-C [Primary Care Provider] - 3-5 Days if not improving Activity Restrictions/Additional Instructions: Plenty of fluids and rest. Increase diet slowly as you are feeling up to it. Zofran as needed for nausea. Imodium as needed for diarrhea. Follow-up with your doctor or primary care provider if not improving or return emergency department if you are feeling worse peer Disposition Disposition: Home, Self Care
[2021-05-20] MEDS: 0.9% Normal Saline 1,000 ML 1000 ML IV ×2 (17:05→17:53)
[2021-05-20 17:16] LABS: Absolute Lymphocyte Count 0.99 X10^3/uL (0.83-4.51); Absolute Neutrophil Count 1.2 X10^3/uL (2.0-7.7); Basophil# 0.01 X10^3/uL; Basophil% 0.4 % (0-1); Hematocrit 42.4 % (37-47); Hemoglobin 13.5 g/dL (12.0-15.0); Lymphocyte # 0.99 X10^3/ul (0.83-4.51); Lymphocyte % 40.2 % (19-41); Mean Corp Hgb Conc 31.8 g/dL (32-36); Mean Corpuscular Hgb 29.9 pg (27.0-32.0); Mean Corpuscular Volume 93.8 fL (81-99); Mean Platelet Vol. 9.3 fl (6.2-12.0); Monocyte# 0.28 X10^3/uL; Monocyte% 11.4 % (0-10); NRBC Flagged by Analyzer 0 % (0-5); Neutrophil # 1.18 X10^3/uL (2.7-7.7); POSITIVE MORPHOLOGY YES; Platelet Count 206 K/mm3 (150-450); RBC Distribution Width CV 12.4 % (11.6-14.6); RBC Distribution Width SD 43.1 fl (35.1-43.9); Red Blood Count 4.52 M/mm3 (4.2-5.4); White Blood Count 2.5 K/mm3 (4.4-11.0)
[2021-05-20 17:25] LABS: Differential Indicated SCAN CRITERIA MET
[2021-05-20 17:33] LABS: AST(SGOT) 35 U/L (15-37); Alanine Aminotransfer ALT/SGPT 39 U/L (13-56); Albumin, Serum 3.4 g/dL (3.2-5.0); Alkaline Phosphatase 63 U/L (45-117); Anion Gap 4 (5-15); BUN 6 mg/dL (7-18); BUN/Creat Ratio 11.7 RATIO (10-20); Calcium,Total 8.3 mg/dL (8.5-10.1); Chloride 106 mmol/L (98-107); Creatinine, Serum 0.51 mg/dL (0.55-1.02); EST Glomerular Filtration Rate 132 mL/min (>60); Est Glom Filt Rate - Afr Amer 159 mL/min (>60); Estimated Creatinine Clearance 107.63 ml/min; Globulin 3.5 g/dL (2.2-4.2); Glucose 108 mg/dL (74-106); Protein, Total 6.9 g/dL (6.4-8.2); Sodium Level 142 mmol/L (136-145)
--- NOTE | 2021-05-20 17:35 | RAD_ITS ---
STUDY: X-RAY CHEST REASON FOR EXAM: Female, 55 years old. covid TECHNIQUE: Single AP portable view of the chest. COMPARISON: None. FINDINGS: The lungs are clear and expanded. There is no demonstrated pleural abnormality. Normal size heart. Normal mediastinum and milana. Normal visualized pulmonary arteries. Normal visualized aortic arch and descending thoracic aorta. Normal visualized thoracic spine. Normal visualized ribs, clavicles, and shoulders. There is no demonstrated abnormality of the visualized soft tissue structures of the upper abdomen. RAD/Chest 1 View (Portable) IMPRESSION: Normal x-ray examination of the chest. Electronically Signed: Suleiman Silver DO at 17:57 EDT Tel , Service support ,
[2021-05-20 17:57] LABS: Differential Comment SCANNED
[2021-05-20 19:30] VITALS: BP 99/66
[2021-05-20 19:31] VITALS: BP 99/66
== END 2021-05-20 19:33 | disposition home or self-care (01) ==
PROVIDERS: Emergency Provider Emergency Medicine; PCP Nurse Practitioner Family
DX: U07.1 COVID-19 (principal); E86.0 Dehydration; E87.6 Hypokalemia; D72.819 Decreased white blood cell count, unspecified
CPT/HCPCS: 71045; 80053; 85025; 96360; 96361; 99283; J7030; A4216

== ENCOUNTER → 2021-06-27 | Outpatient (CLI) | payer BC, SELFPAY | END | disposition home or self-care (01) | LOC: LABSPEC 12:36 | PROVIDERS: Referring Provider Nurse Practitioner Women's Health; Visit Provider Nurse Practitioner Women's Health | DX: R35.0 Frequency of micturition (principal); L90.0 Lichen sclerosus et atrophicus | CPT/HCPCS: 87070; 87086; 87205 ==

== ENCOUNTER 2021-10-11 10:39 | Outpatient (CLI) | payer BC, SELFPAY ==
--- NOTE | 2021-10-11 10:40 | BI_ITS ---
MAMMOGRAPHY - BILATERAL SCREENING REASON FOR EXAM: Female, 55 years old. Routine annual screening examination. PERTINENT HISTORY: Non-contributory. TECHNIQUE: Digital bilateral breast wilbur (3D mammographic acquisition) in the CC and MLO projections. 2-D mediolateral oblique (MLO) and craniocaudad (CC) views of both breasts were obtained. CAD: Full Field Digital Mammography with Computer Added Detection was performed. COMPARISON: Comparison is made with prior study dated 09/25/2020 and 06/11/2018. FINDINGS: Breast Composition: The breasts are heterogeneously dense, which may obscure small masses. There are no dominant masses or suspicious calcifications. Stable benign-appearing bilateral axillary lymph nodes. No other significant abnormalities are identified. There has been no significant change since the prior study. BI/SCRN MAMM (CAD)W/WILBUR BILAT IMPRESSION: Stable bilateral screening mammogram. Yearly follow-up mammogram recommended. (A) ASSESSMENT CATEGORY: BIRADS Category 2: Benign. A letter regarding these results will be sent to the patient by the facility within 30 days. Approximately 10% of breast cancers are not detected by mammography. A normal mammogram should not delay biopsy of a clinically suspicious abnormality. [id number] Electronically Signed: Julio César Gomez MD at 11:39 EST , Service support ,
== END 2021-10-11 23:59 | disposition short-term general hospital (02) ==
LOC: OPBI 10:39
PROVIDERS: PCP Nurse Practitioner Family; Referring Provider Nurse Practitioner Women's Health; Visit Provider Nurse Practitioner Women's Health
DX: Z12.31 Encounter for screening mammogram for malignant neoplasm of breast (principal)
CPT/HCPCS: 77063; 77067

== ENCOUNTER 2021-11-15 12:47 | Outpatient (CLI) | payer BC, SELFPAY ==
--- NOTE | 2021-11-15 11:45 | VUL_PTH ---
PATIENT: ANDRY MCKENZIE LOC: [facility] U#:[id number] AGE/SX: 55/F ROOM: RE11/15/[address]: Dr. Elaine Cottrell DO : 1965 BED: DIS: 11/15/2021 SPEC #: [id number] RECD: 11/15/21 12:40 STATUS: JAIRO ALBERTS #: [id number] ANGEL: 11/15/21 11:[address]: Elaine Cottrell DEPT: SURGICAL PATHOLOGY RECD BY: Latanya Durbin ENTERED: 11/15/21 13:59 SP TYPE: VULVA BX OTHR DR: Mauro Hernández, COLORIST PHOTOGRAPHY-C Tissues: Vulva, NOS Procedures: Surgery Specimen Level IV HEADER OPERATION: Vulva biopsy PRE-OP DIAGNOSIS: Vaginal lesion TISSUE SUBMITTED: Vulvar lesion MICROSCOPIC DIAGNOSIS Vulvar lesion, biopsy: Polypoid fragment of squamous epithelium with minimal chronic inflammation. No evidence of malignancy. AM:martina 11/18/2021 MICROSCOPIC DESCRIPTION Slides are reviewed. GROSS DESCRIPTION Received is one container labeled with the patient's name and not further designated. The specimen consists of light zhao soft tissue measuring 0.1 x 0.1 x <0.1. The specimen is totally submitted in one cassette. / AM:martina 11/15/2021 TC:3 CPT: 44842
== END 2021-11-15 23:59 | disposition home or self-care (01) ==
LOC: LAB 12:48
PROVIDERS: PCP Nurse Practitioner Family; Visit Provider Obstetrics & Gynecology
DX: N89.8 Other specified noninflammatory disorders of vagina (principal)
CPT/HCPCS: 88305

== ENCOUNTER → 2022-01-16 | Outpatient (CLI) | payer BC, SELFPAY | END | disposition home or self-care (01) | LOC: LABSPEC 09:50 | PROVIDERS: PCP Nurse Practitioner Family; Visit Provider Nurse Practitioner Women's Health | DX: N76.0 Acute vaginitis (principal) | CPT/HCPCS: 87070; 87205 ==

== ENCOUNTER → 2022-02-21 | Outpatient (CLI) | payer BC, SELFPAY | END | disposition home or self-care (01) | LOC: LABSPEC 17:43 | PROVIDERS: PCP Nurse Practitioner Family; Visit Provider Obstetrics & Gynecology | DX: R30.9 Painful micturition, unspecified (principal) | CPT/HCPCS: 87086; 87088 ==

== ENCOUNTER → 2022-10-14 | Outpatient (CLI) | payer BC, SELFPAY ==
--- NOTE | 2022-10-14 09:50 | BI_ITS ---
MAMMOGRAPHY - BILATERAL SCREENING REASON FOR EXAM: Female, 56 years old. Routine annual screening examination. PERTINENT HISTORY: Non-contributory. TECHNIQUE: Digital bilateral breast wilbur (3D mammographic acquisition) in the CC and MLO projections. 2-D mediolateral oblique (MLO) and craniocaudad (CC) views of both breasts were obtained. CAD: Full Field Digital Mammography with Computer Added Detection was performed. COMPARISON: Comparison is made with prior study dated 10/11/2021 and 09/25/2020. FINDINGS: Breast Composition: The breasts are heterogeneously dense, which may obscure small masses. There are no dominant masses or suspicious calcifications. Stable small benign-appearing bilateral axillary lymph nodes. No other significant abnormalities are identified. There has been no significant change since the prior study. BI/SCRN MAMM (CAD)W/WILBUR BILAT IMPRESSION: Stable bilateral screening mammogram. Yearly follow-up mammogram recommended. (A) ASSESSMENT CATEGORY: BIRADS Category 2: Benign. A letter regarding these results will be sent to the patient by the facility within 30 days. Approximately 10% of breast cancers are not detected by mammography. A normal mammogram should not delay biopsy of a clinically suspicious abnormality. [id number] Electronically Signed: Julio César Gomez MD at 11:26 EST ,
== END | disposition home or self-care (01) ==
LOC: OPBI 09:49
PROVIDERS: PCP Nurse Practitioner Family; Visit Provider Obstetrics & Gynecology
DX: Z12.31 Encounter for screening mammogram for malignant neoplasm of breast (principal)
CPT/HCPCS: 77063; 77067

== ENCOUNTER → 2023-10-16 | Outpatient (CLI) | payer BC, SELFPAY ==
--- NOTE | 2023-10-16 08:35 | BI_ITS ---
MAMMOGRAPHY - BILATERAL SCREENING REASON FOR EXAM: Female, 57 years old. Routine annual screening examination. PERTINENT HISTORY: Non-contributory. TECHNIQUE: Digital bilateral breast wilbur (3D mammographic acquisition) in the CC and MLO projections. 2-D mediolateral oblique (MLO) and craniocaudad (CC) views of both breasts were obtained. CAD: Full Field Digital Mammography with Computer Added Detection was performed. COMPARISON: Comparison is made with prior study dated October 14, 2022 and October 11, 2021. FINDINGS: Breast Composition: The breasts are heterogeneously dense, which may obscure small masses. There are no dominant masses or suspicious calcifications. Stable small benign-appearing bilateral axillary lymph nodes. No other significant abnormalities are identified. There has been no significant change since the prior study. BI/SCRN MAMM (CAD)W/WILBUR BILAT IMPRESSION: Stable bilateral screening mammogram. Yearly follow-up mammogram recommended. (A) ASSESSMENT CATEGORY: BIRADS Category 2: Benign. A letter regarding these results will be sent to the patient by the facility within 30 days. Approximately 10% of breast cancers are not detected by mammography. A normal mammogram should not delay biopsy of a clinically suspicious abnormality. [id number] Electronically Signed: Julio César Gomez MD at 11:05 EST ,
--- OUTSIDE RECORDS SUMMARY | 2023-10-16 08:56 | XMS RPT_ITS | CCD ---
Author Name Unknown Address [address] [place] [address] Organization [facility] Care Team Providers Care Clerical Adjudicator Name Role Phone VICKY ARNETT APRN, CNP Primary Care Phys ician VICKY ARNETT APRN, CNP Attending U navailable VICKY ARNETT APRN, CNP Primary Care U navailable Medications Current Medications Medication Drug Class(es) Dates Sig (Normalized) Sig (Original) aspirin 81 mg delayed release oral tablet (1 source) Platelet Aggregation Inhibitor, Nonsteroidal Anti-inflammatory Drug Start: 06-10-2019 aspirin 81 mg oral delayed release tablet Dose : 81 mg = 1 tab(s), Oral, Daily, 0 Refill(s) Start Date: 06/10/19 Status: Ordered clobetasol propionate 0.0005 mg/mg topical ointment (1 source) Corticosteroid Start: 12-19-2022 clobetasol 0.05% topical ointment Apply 1 jayesh, Topical, BID, # 15 gram(s), 0 Refill(s), Ointment, 67.2 Start Date: 12/19/22 Status: Ordered Cranberry preparation (1 source) Non-Standardized Food Allergenic Extract, Non-Standardized Plant Allergenic Extract Start: 06-10-2019 take 1 capsule by mouth once daily cranberry oral capsule Dose = 1 cap(s), Oral, Daily, 0 Refill(s) Start Date: 06/10/19 Status: Ordered estradiol 1 mg oral tablet (1 source) Estrogen Start: 06-13-2022 End: 11-13-2023 estradiol 1 mg oral tablet Dose : 1 mg = 1 tab(s), Oral, qDay, Managed by CHEMISTRY TUTOR in [place], # 30 tab(s), 5 Refill(s), Pharmacy: [id number], 162, cm, 06/13/22 9:02:00 EDT, Height, kg, 06/13/22 9:02:00 EDT, Dosing Weight Start Date: 06/13/22 Stop Date: 11/13/23 Status: Ordered evening primrose oil 1000 mg oral capsule (1 source) Start: 06-10-2019 Evening [place] Oil 1000 mg oral capsule Dose : 1,000 mg = 1 cap(s), Oral, Daily, 0 Refill(s) Start Date: 06/10/19 Status: Ordered famotidine 20 mg oral tablet (1 source) Histamine-2 Receptor Antagonist Start: 06-15-2020 take 1 mg by mouth twice daily as needed famotidine 20 mg oral tablet mg = tab(s), Oral, BID, PRN abdominal discomfort, 0 Refill(s) Start Date: 06/15/20 Status: Ordered [facility] Medication (1 source) Start: 12-10-2021 [facility] Medication C-Estriol compound pharmacy. Cream, 0 Refill(s), 64.7 Start Date: 12/10/21 Status: Ordered naproxen 500 mg oral tablet (1 source) Nonsteroidal Anti-inflammatory Drug Start: 12-19-2022 naproxen 500 mg oral tablet Dose : 500 mg = 1 tab(s), Oral, BID, PRN with food, # 60 tab(s), 5 Refill(s), Pharmacy: [id number], 163, cm, 12/19/22 8:59:00 EDT, Height, kg, 12/19/22 8:59:00 EDT, Dosing Weight Start Date: 12/19/22 Status: Ordered Probiotic (1 source) Start: 06-13-2022 Probiotic 0 Refill(s) Start Date: 06/13/22 Status: Ordered Vitamin C 1000 mg oral tablet (1 source) Start: 11-19-2021 take 1 mg by mouth once daily Vitamin C 1000 mg oral tablet mg = tab(s), Oral, qDay, takes on Sun, Tues, Thru, and Sat., 0 Refill(s) Start Date: 11/19/21 Status: Ordered Vitamin D3 125 mcg (5000 intl units) oral capsule (1 source) Start: 11-19-2021 Vitamin D3 125 mcg (5000 intl units) oral capsule See Instructions, 2 cap(s) Oral. Takes on M,W,F., 0 Refill(s) Start Date: 11/19/21 Status: Ordered Completed/Discontinued Medications Medication Drug Class(es) Dates Sig (Normalized) Sig (Original) fluticasone propionate 0.05 mg/actuat metered dose nasal spray (1 source) Corticosteroid Start: 12-19-2022 End: 06-17-2023 take 1 dose nasal route once daily in the morning Flonase 50 mcg/inh nasal spray Dose = 2 spray(s), Nostril, each, qAM, # 9.9 mL, 5 Refill(s), Pharmacy: [id number], Acute sinus infection Seasonal allergies, 163, cm, 12/19/22 8:59:00 EDT, Height, kg, 12/19/22 8:59:00 EDT, Dosing Weight Start Date: 12/19/22 Stop Date: 06/17/23 Status: Ordered Problems Problem Classification Problem Date Documented Date Episodic/Chronic Acquired foot deformities (1 source) Acquired pes planus 06-09-2019 Episodic Diseases of white blood cells (1 source) Leukopenia 11-19-2021 Chronic Endometriosis (1 source) Endometriosis (clinical) 11-19-2021 Chronic Menopausal disorders (1 source) Postmenopausal bleeding 11-19-2021 Chronic Nutritional deficiencies (1 source) Vitamin D deficiency 11-19-2021 Chronic Osteoarthritis (1 source) Osteoarthritis 06-13-2022 Chronic Other female genital disorders (1 source) Dyspareunia 06-15-2020 Chronic Other female genital disorders (1 source) Vaginal dryness 06-15-2020 Episodic Other screening for suspected conditions (not mental disorders or infectious disease) (5 sources) Breast neoplasm screening status; Translations: [Encounter for screening for diabetes mellitus] Onset: 07-09-2023 06-16-2023 Episodic Other upper respiratory disease (1 source) Seasonal allergy 12-30-2021 Chronic Spondylosis; intervertebral disc disorders; other back problems (1 source) Chronic low back pain 06-09-2019 Episodic Unclassified (1 source) History of SARS-CoV-2 05-23-2021 Unclassified (3 sources) Patient encounter status 03-15-2020 Viral infection (1 source) Herpes zoster 11-19-2021 Episodic Results Test Name Value Interpretation Reference Range Facil ity Encounters Encounter Date Encounter Type Care Provider Facility Start: 07-09-2023 End: 07-14-2023 ambulatory VICKY DEMPSEY OPHTHALMIC AIDE - PASTE MIXING SUPERVISOR Facility:B Start: 07-09-2023 End: 07-14-2023 Encounter for general adult medical examination without abnormal findings VICKY DEMPSEY OPHTHALMIC AIDE - PASTE MIXING SUPERVISOR Facility:[facility] Start: 07-09-2023 End: 07-13-2023 Outreach Lab VICKY DEMPSEY OPHTHALMIC AIDE - PASTE MIXING SUPERVISOR [facility] Procedures Date Procedure Procedure Detail Performing Clinician Abdominal hysterectomy KIRK MCNAMARA ROSELYN OPHTHALMIC AIDE - PASTE MIXING SUPERVISOR Immunizations Immunization Date Immunization Notes Care Provider Fa cility 03-01-2019 tetanus toxoid, redu cooper diphtheria toxoid, and acellular pertussis vaccine, adsorbed VICKY DEMPSEY OPHTHALMIC AIDE - PASTE MIXING SUPERVISOR [facility] Payers Date Payer Category Payer Unknown [id number] 1965 Unknown [id number] Social History Date Type Detail Facility Start: 06-09-2019 Tobacco smoking status Never s moked tobacco (finding) [facility] Evaluation + Plan note Note Date & Type Note Facility Evaluation + Plan note No data available for this section [facility] Hospital Discharge instructions Note Date & Type Note Facility Hospital Discharge instructions No data available for this section [facility] Progress note Note Date & Type Note Facility Progress note No data available for this section [facility] Summary Purpose Family History No Family History Records Found No data available for this section No Family History Records Found Advance Directives No Advanced Directives Records FoundNo Advanced Directives Records Found Additional Source Comments INFORMATION SOURCE (unrecogn ized section and content) DATE CREATED AUTHOR AUTHOR'S ORGANIZ ATSHALONDA 07/15/2023 [facility] [place] [facility] Patient Care team informatio n (unrecognized section and content) Care Team Personnel Name: VICKY DEMPSEY APRN - PASTE MIXING SUPERVISOR Position: P4 Advanced Traffic Clerk Member Role: Primary Care Physician Address: Address: [address] [facility] [place], [place] [address] Care Team Related Persons Name: JAMEE RIGOBERTO Anurag Address: Home [address] [id number] Address: [facility] [address] [phone] Name: MIS MCKENZIE Address: Home [address] [place], [place] [id number] Name: DARRON WADE FOR RECORDS PERTAINING TO PATIENTS WHO ARE OR HAVE BEEN ENROLLED IN A CHEMICAL DEPENDENCY/SUBSTANCEABUSE PROGRAM, SOME INFORMATION MAY BE OMITTED. This clinical summary was aggregated from multiple sources. Caution should be exercised in using it in the provision of clinical care. This summary normalizes information from multiple sources, and as a consequence, information in this document may materially change the coding, format and clinical context of patient data. In addition, data may be omitted in some cases. CLINICAL DECISIONS SHOULD BE BASED ON THE PRIMARY CLINICAL RECORDS. [employer] provides no warranty or guarantee of the accuracy or completeness of information in this document.
== END | disposition home or self-care (01) ==
LOC: OPBI 08:34
PROVIDERS: PCP Nurse Practitioner Family; Referring Provider Obstetrics & Gynecology; Visit Provider Obstetrics & Gynecology
DX: Z12.31 Encounter for screening mammogram for malignant neoplasm of breast (principal)
CPT/HCPCS: 77063; 77067

== ENCOUNTER → 2024-10-18 | Outpatient (CLI) | payer BC, SELFPAY ==
--- NOTE | 2024-10-18 09:15 | BI_ITS ---
PROCEDURE: SCRN MAMM (CAD)W/WILBUR BILAT REASON FOR EXAM: F, Age 58 y/o, no family history. TECHNIQUE: Bilateral screening digital breast tomosynthesis with 2D and 3D images. Computer aided detection. COMPARISON: Prior exam(s) dating back to October 16, 2023.. FINDINGS: The breasts are heterogeneously dense which may obscure small masses. Stable examination. Stable small benign-appearing bilateral axillary lymph nodes. No suspicious masses, areas of developing architectural distortion, or suspicious calcifications. BI/SCRN MAMM (CAD)W/WILBUR BILAT IMPRESSION: BI-RADS 2: BENIGN. RECOMMEND ANNUAL MAMMOGRAPHIC SCREENING. Follow-up code: Routine Follow-up The patient will be notified of the results by letter. Reading Location: [place] [address]
== END | disposition home or self-care (01) ==
LOC: OPBI 09:01
PROVIDERS: PCP Nurse Practitioner Family; Referring Provider Obstetrics & Gynecology; Visit Provider Obstetrics & Gynecology
DX: Z12.31 Encounter for screening mammogram for malignant neoplasm of breast (principal)
CPT/HCPCS: 77063; 77067

== ENCOUNTER 2025-08-25 15:20 | Emergency (ER) | payer BC, SELFPAY ==
[2025-08-25 15:22] VITALS: BP 146/115; PULSE 73; RESP 17; TEMP 36.9; O2SAT 100; BMI 28.5
--- NOTE | 2025-08-25 15:45 | ED.RN ---
NIH done. Score was 0.
--- OUTSIDE RECORDS SUMMARY | 2025-08-25 15:56 | XMS RPT_ITS | CCD ---
Author Organization [facility] Inform ion Partnership [facility] Care Team Providers Care Tax Collector Name Role Phone Dr. Elaine Cottrell Attending Provider [phone] Betty HUMAN RESOURCES GENERALIST, HUMAN RESOURCES GENERALIST-C Mauro Gonzales Primary Care Pr ovider Betty HUMAN RESOURCES GENERALIST, HUMAN RESOURCES GENERALIST-C Mauro Gonzales Referring Provi goldy Last HUMAN RESOURCES GENERALIST, HUMAN RESOURCES GENERALIST-C Nancy Attending Provider [phone] Betty BERNSTEIN, HUMAN RESOURCES GENERALIST-C Mauro Gonzales Primary Care Pr ovider Betty BERNSTEIN, HUMAN RESOURCES GENERALIST-C Mauro Gonzales Referring Provi goldy Dr. Elaine Cottrell Attending Provider [phone] MAURO ARNETT APRN, CNP Primary Care Phys ician MAURO ARNETT APRN, CNP Attending U MAURO Unger APRN, CNP Primary Care U Mauro Harris NP Referring Unav ailable Betty BERNSTEIN, Mauro Gonzales Primary Care Unav ailable Elaine Cottrell Attending Elaine Fernández Attending Mauro Roy NP Primary Care Unav ailable Elaine Cottrell Referring MAURO Vigil APRN, CNP Attending U MAURO Unger APRN, CNP Primary Care U navailnicole Medications Current Medications Medication Drug Class(es) Dates Sig (Normalized) Sig (Original) ascorbic acid 500 mg oral capsule (2 sources) Vitamin C Start: 06-27-2021 Ascorbic Acid (Vitamin C) Active MG PO June 27, 2021 10:31am aspirin 81 mg delayed release oral tablet (4 sources) Platelet Aggregation Inhibitor, Nonsteroidal Anti-inflammatory Drug Start: 06-10-2019 aspirin 81 mg oral delayed release tablet Dose : 81 mg = 1 tab(s), Oral, Daily, 0 Refill(s) Start Date: 06/10/19 Status: Ordered Medication Dispense Status: Completed Total Allowed Fills: 1 Fills Dispensed: 0 cholecalciferol 0.05 mg oral capsule (2 sources) Vitamin D Start: 06-27-2021 take 50 ug by mouth once daily Cholecalciferol (Vitamin D3) Active 50 MCG PO DAILY June 27, 2021 10:31am clobetasol propionate 0.0005 mg/mg topical ointment (4 sources) Corticosteroid Start: 12-19-2022 apply 1 dose topically twice daily clobetasol 0.05% topical ointment Apply 1 jayesh, Topical, BID, # 15 gram(s), 0 Refill(s), Ointment, 67.2 Start Date: 12/19/22 Status: Ordered Medication Dispense Status: Completed Quantity: 15.0 Unit: g Total Allowed Fills: 1 Fills Dispensed: 0 Start: 06-27-2021 End: 01-16-2022 Clobetasol Discontinued 1 AP PLIC TOPICAL .COMPLEX June 27, 2021 10:46am January 16, 2022 8:50am 1 applic topical apply bid X 2 weeks, daily X 2 weeks then prn. Small amount and massge in; Cranberry (6 sources) Non-Standardized Food Allergenic Extract, Non-Standardized Plant Allergenic Extract Start: 01-16-2022 Cranberry Active 500 MG PO DAILY January 16, 2022 7:34am bid x 4 days q week, qd x 3 days Start: 01-16-2022 Cranberry Acti ve 500 MG PO DAILY January 16, 2022 8:34am bid x 4 days q week, qd x 3 days Start: 06-10-2019 take 1 capsule by [facility] once daily cranberry oral capsule Dose = 1 cap(s), Oral, Daily, 0 Refill(s) Start Date: 06/10/19 Status: Ordered Medication Dispense Status: Completed Total Allowed Fills: 1 Fills Dispensed: 0 Start: 06-10-2019 take 1 capsule by mo uth once daily cranberry oral capsule Dose = 1 cap(s), Oral, Daily, 0 Refill(s) Start Date: 06/10/19 Status: Ordered Start: 08-23-2018 End: 01-16-2022 take 500 mg by mouth once daily Cranberry Discontinued 500 MG PO DAILY August 23, 2018 12:40pm January 16, 2022 8:34am Start: 08-23-2018 End: 01-16-2022 take 500 mg by mouth once daily Cranberry Discontinued 500 MG PO DAILY August 23, 2018 12:00am January 16, 2022 7:34am evening primrose oil 500 mg oral capsule (6 sources) Start: 06-27-2021 take 500 mg by mouth once daily Evening Pomaria Oil Active 500 MG PO DAILY June 27, 2021 9:29am give with meal/snack Start: 08-01-2020 End: 06-27-2021 take 500 mg by mouth three times daily Evening Pomaria Oil Discontinued 500 MG PO THREE TIMES A DAY August 01, 2020 9:46am June 27, 2021 10:31am give with meal/snack Start: 06-10-2019 Evening Primro se Oil 1000 mg oral capsule Dose : 1,000 mg = 1 cap(s), Oral, Daily, 0 Refill(s) Start Date: 06/10/19 Status: Ordered Medication Dispense Status: Completed Total Allowed Fills: 1 Fills Dispensed: 0 famotidine 20 mg oral tablet (6 sources) Histamine-2 Receptor Antagonist Start: 08-01-2020 End: 06-27-2021 take 20 mg by mouth once daily Famotidine Active 20 MG PO DAILY June 27, 2021 9:30am Start: 06-15-2020 take 1 mg by mouth t wice daily as needed famotidine 20 mg oral tablet mg = tab(s), Oral, BID, PRN abdominal discomfort, 0 Refill(s) Start Date: 06/15/20 Status: Ordered Medication Dispense Status: Completed Total Allowed Fills: 1 Fills Dispensed: 0 fluconazole 150 mg oral tablet (6 sources) Azole Antifungal Start: 01-16-2022 Fluconazole ( Diflucan) 150 mg tablet Active 150 MG PO Q3D February 20, 2022 11:00pm Start: 06-30-2021 End: 07-23-2021 Fluconazole Discontinued 150 MG PO .COMPLEX 2 June 30, 2021 5:44pm July 23, 2021 2:25pm 150 mg PO take one po now and repeat in 3 days Lactobacillus Combination No.9 (Adult 50 Plus Probiotic) 4 billion cell capsule (1 source) Start: 08-01-2022 take 4 capsules by mouth once daily Lactobacillus Combination No.9 (Adult 50 Plus Probiotic) 4 billion cell capsule Active 4000 MMU CELLS PO DAILY August 01, 2022 12:00am administer with a meal loperamide hydrochloride 2 mg oral capsule (2 sources) Opioid Agonist Start: 08-23-2018 Loperamide Active 2 MG PO NEEDED August 23, 2018 12:40pm naproxen 500 mg oral tablet (4 sources) Nonsteroidal Anti-inflammatory Drug Start: 02-07-2025 naproxen 500 mg oral tablet Dose : 500 mg = 1 tab(s), Oral, BID, PRN with food, # 60 tab(s), 5 Refill(s), Pharmacy: [id number], 165, cm, 12/19/24 11:21:00 EDT, Height, kg, 12/19/24 11:21:00 EDT, Dosing Weight Start Date: 02/07/25 Status: Ordered Medication Dispense Status: Completed Quantity: 60.0 Unit: tab(s) Total Allowed Fills: 6 Fills Dispensed: 0 Start: 12-19-2022 naproxen 500 m g oral tablet Dose : 500 mg = 1 tab(s), Oral, BID, PRN with food, # 60 tab(s), 5 Refill(s), Pharmacy: [facility], 163, cm, 12/19/22 8:59:00 EDT, Height, kg, 12/19/22 8:59:00 EDT, Dosing Weight Start Date: 12/19/22 Status: Ordered Start: 08-23-2018 take 500 mg by mouth once daily as needed Naproxen Active 500 MG PO DAILY NEEDED August 23, 2018 12:40pm Probiotic (2 sources) Start: 06-13-2022 Probiotic 0 Re fill(s) Start Date: 06/13/22 Status: Ordered Medication Dispense Status: Completed Total Allowed Fills: 1 Fills Dispensed: 0 Start: 06-13-2022 Probiotic 0 Re fill(s) Start Date: 06/13/22 Status: Ordered Vitamin C 1000 mg oral tablet (2 sources) Start: 11-19-2021 take 1 mg by mouth once daily Vitamin C 1000 mg oral tablet mg = tab(s), Oral, qDay, takes on Sun, Tues, Thru, and Sat., 0 Refill(s) Start Date: 11/19/21 Status: Ordered Medication Dispense Status: Completed Total Allowed Fills: 1 Fills Dispensed: 0 Start: 11-19-2021 take 1 mg by mouth once daily Vitamin C 1000 mg oral tablet mg = tab(s), Oral, qDay, takes on Sun, Tues, Thru, and Sat., 0 Refill(s) Start Date: 11/19/21 Status: Ordered Vitamin D3 125 mcg (5000 int l units) oral capsule (2 sources) Start: 11-19-2021 Vitamin D3 125 mcg (5000 intl units) oral capsule See Instructions, 2 cap(s) Oral. Takes on M,W,F., 0 Refill(s) Start Date: 11/19/21 Status: Ordered Medication Dispense Status: Completed Total Allowed Fills: 1 Fills Dispensed: 0 Start: 11-19-2021 Vitamin D3 125 mcg (5000 intl units) oral capsule See Instructions, 2 cap(s) Oral. Takes on M,W,F., 0 Refill(s) Start Date: 11/19/21 Status: Ordered Completed/Discontinued Medications Medication Drug Class(es) Dates Sig (Normalized) Sig (Original) acyclovir 800 mg oral tablet (4 sources) Herpesvirus Nucleoside Analog DNA Polymerase Inhibitor, Herpes Simplex Virus Nucleoside Analog DNA Polymerase Inhibitor, Herpes Zoster Virus Nucleoside Analog DNA Polymerase Inhibitor Start: 08-03-2021 End: 11-22-2021 Acyclovir Discontinued 800 MG PO Q4H 42 7 November 15, 2021 11:58am November 22, 2021 12:04am while awake; give 5 doses in 24 hours docusate sodium 100 mg oral capsule (2 sources) Start: 08-30-2018 End: 08-01-2020 take 100 mg by mouth twice daily as needed Docusate Sodium Discontinued 100 MG PO TWICE DAILY NEEDED 60 August 30, 2018 12:48pm August 01, 2020 9:45am estradiol 1 mg oral tablet (13 sources) Estrogen Start: 11-22-2021 Estradiol Active 1 GM VAGINAL .3 times a week 42.5 90 November 22, 2021 10:24am use intravaginally and also a pea size amount on the perineum (external area) 3 times a week. Start: 08-01-2020 End: 01-16-2022 Estradiol (Estrace) 0.01 % ( 0.1 mg/gram) cream Discontinued 0 VAGINAL .COMPLEX 42.5 August 01, 2020 9:59am January 16, 2022 8:49am pea sized amount VAGINAL every other day X 4 weeks then twice a week; Start: 08-30-2018 End: 11-13-2023 estradiol 1 mg oral tablet D ose : 1 mg = 1 tab(s), Oral, qDay, Managed by [employer] in [place], # 30 tab(s), 5 Refill(s), Pharmacy: [facility], 162, cm, 06/13/22 9:02:00 EDT, Height, kg, 06/13/22 9:02:00 EDT, Dosing Weight Start Date: 06/13/22 Stop Date: 11/13/23 Status: Ordered Medication Dispense Status: Completed Quantity: 30.0 Unit: tab(s) Total Allowed Fills: 6 Fills Dispensed: 0 fluticasone propionate 0.05 mg/actuat metered dose nasal spray (2 sources) Corticosteroid Start: 12-19-2022 End: 06-17-2023 take 1 dose nasal route once daily in the morning Flonase 50 mcg/inh nasal spray Dose = 2 spray(s), Nostril, each, qAM, # 9.9 mL, 5 Refill(s), Pharmacy: [facility], Acute sinus infection Seasonal allergies, 163, cm, 12/19/22 8:59:00 EDT, Height, kg, 12/19/22 8:59:00 EDT, Dosing Weight Start Date: 12/19/22 Stop Date: 06/17/23 Status: Ordered Medication Dispense Status: Completed Quantity: 9.9 Unit: mL Total Allowed Fills: 6 Fills Dispensed: 0 Indications: Acute sinusitis, unspecified; Other seasonal allergic rhinitis; iron carbonyl 45 mg oral tablet (2 sources) Start: 08-23-2018 End: 06-27-2021 Iron, Carbonyl Discontinued 65 MG PO MOWEFR August 23, 2018 12:40pm June 27, 2021 10:30am [facility] (2 sources) Start: 12-10-2021 [facility] n C-Estriol [facility]. Cream, 0 Refill(s), 64.7 Start Date: 12/10/21 Status: Ordered Medication Dispense Status: Completed Total Allowed Fills: 1 Fills Dispensed: 0 Start: 12-10-2021 [facility] n C-Estriol [facility]. Cream, 0 Refill(s), 64.7 Start Date: 12/10/21 Status: Ordered oxyCODONE hydrochloride 5 mg oral tablet (2 sources) Opioid Agonist Start: 08-30-2018 End: 09-06-2018 take 5 mg by mouth every six hours as needed Oxycodone Discontinued 5 MG PO EVERY 6 HOURS NEEDED 09 04August 30, 2018 12:49pm September 06, 2018 1:10am raNITIdine 150 mg oral tablet (2 sources) Histamine-2 Receptor Antagonist Start: 08-23-2018 End: 08-01-2020 take 150 mg by mouth once daily Ranitidine Hcl Discontinued 150 MG PO DAILY August 23, 2018 12:40pm August 01, 2020 9:46am Problems Problem Classification Problem Date Documented Date Episodic/Chronic Acquired foot deformities (2 sources) Acquired pes planus 06-09-2019 Episodic Administrative/social admission (2 sources) Patient encounter status; Translations: [Other specified counseling] 07-23-2021 Episodic Diseases of white blood cells (2 sources) Leukopenia 11-19-2021 Chronic Endometriosis (2 sources) Endometriosis (clinical) 11-19-2021 Chronic Fluid and electrolyte disorders (2 sources) Acute hypokalemia; Translations: [Hypokalemia] 05-20-2021 Episodic Genitourinary symptoms and ill-defined conditions (3 sources) Dysuria; Translations: [Dysuria] Episodic Inflammatory diseases of female pelvic organs (3 sources) Vaginitis; Translations: [Acute vaginitis] Episodic Menopausal disorders (5 sources) Atrophic vaginitis; Translations: [Postmenopausal atrophic vaginitis] Chronic Nutritional deficiencies (2 sources) Vitamin D deficiency 11-19-2021 Chronic Osteoarthritis (2 sources) Osteoarthritis 06-13-2022 Chronic Other female genital disorders (2 sources) Dyspareunia 06-15-2020 Chronic Other female genital disorders (2 sources) Atrophic vulva; 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] 11-22-2021 Episodic Other female genital disorders (2 sources) Vaginal lesion; Translations: [Other specified noninflammatory disorders of vagina] 08-23-2021 Episodic Other female genital disorders (3 sources) Atrophy of vulva; 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] Episodic Other female genital disorders (2 sources) Vaginal dryness 06-15-2020 Episodic Other screening for suspected conditions (not mental disorders or infectious disease) (11 sources) Breast neoplasm screening status; Translations: [Encounter for screening for diabetes mellitus] Onset: 07-09-2023 06-16-2023 Episodic Other skin disorders (2 sources) Lichen sclerosus et atrophicus; 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 Other upper respiratory disease (2 sources) Seasonal allergy 12-30-2021 Chronic Spondylosis; intervertebral disc disorders; other back problems (2 sources) Chronic low back pain 06-09-2019 Episodic Unclassified (2 sources) History of SARS-CoV-2 05-23-2021 Unclassified (6 sources) Patient encounter status 03-15-2020 Viral infection (6 sources) Disease caused by 2019-nCoV; Translations: [COVID-19] 05-20-2021 Episodic Results Test Name Value Interpretation Reference Range Facility .Auto Diffon 05-30-2025 Basophil, Absolute 0.0 10 3/mcL Normal 0.0-0.3 [facility] Comment on above: Performed By: #### A 1C, CBC, GFR, ANEU, LIPID, CMP, ADIFF #### [address] [address] Basophils/100 WBC (Bld) 0.4 % Normal 0.0-2.5 [facility] Comment on above: Performed By: #### A 1C, CBC, GFR, ANEU, LIPID, CMP, ADIFF #### [id number] [place], [place] [address] Eosinophil, Absolute 0.1 10 3/mcL Normal 0.0-0.7 [facility] Comment on above: Performed By: #### A 1C, CBC, GFR, ANEU, LIPID, CMP, ADIFF #### [address] [address] Eosinophils/100 WBC (Bld) 2.0 % Normal 0.0-6.0 [facility] Comment on above: Performed By: #### A 1C, CBC, GFR, ANEU, LIPID, CMP, ADIFF #### [address] [address] Lymphocyte, Absolute 2.0 10 3/mcL Normal 0.9-4.3 [facility] Comment on above: Performed By: #### A 1C, CBC, GFR, ANEU, LIPID, CMP, ADIFF #### [address] [address] Lymphocytes/100 WBC (Bld) 49.5 % High 20.0-40.0 [facility] Comment on above: Performed By: #### A 1C, CBC, GFR, ANEU, LIPID, CMP, ADIFF #### [address] [address] Monocyte, Absolute 0.3 10 3/mcL Normal 0.1-1.4 [facility] Comment on above: Performed By: #### A 1C, CBC, GFR, ANEU, LIPID, CMP, ADIFF #### [address] [address] Monocytes/100 WBC (Bld) 8.7 % Normal 2.0-13.0 [facility] Comment on above: Performed By: #### A 1C, CBC, GFR, ANEU, LIPID, CMP, ADIFF #### [address] [address] Neutrophils/100 WBC (Bld) 39.4 % Low 50.0-75.0 [facility] Comment on above: Performed By: #### A 1C, CBC, GFR, ANEU, LIPID, CMP, ADIFF #### [address] [address] .GFRon 05-30-2025 Estimated Glomerular Filtration Rate 93 ml/min/1.73sqm Normal [facility] Comment on above: Result Comment: Stages of Chronic Kidney Disease (CKD) Stage Description eGFR(ml/min/1.73 sq.m.) CKD 1 Normal kidney function or >=90 normal kindney function with possible kidney damage (ex. Proteinuria) CKD 2 Kidney damage with mild loss 60-89 of kidney function CKD 3a Mild to moderate loss of kidney 45-59 function CKD 3b Moderate to severe loss of 30-44 of kindey function CKD 4 Severe loss of kidney function 15-29 CKD 5 Kidney failure <15 Note: (go live 2024) the eGFR calculation was updated to the 2020 CKD-EPI creatinine equation without a race factor to calculate the eGFR results. Performed By: #### A 1C, CBC, GFR, ANEU, LIPID, CMP, ADIFF #### [address] [address] .NEUABSon 05-30-2025 Neutrophil, Absolute 1.6 10 3/mcL Low 2.3-8.1 [facility] Comment on above: Performed By: #### A 1C, CBC, GFR, ANEU, LIPID, CMP, ADIFF #### [address] [address] A1Con 05-30-2025 Glucose [Mass/Vol] 105 mg/dL Normal [facility] Comment on above: Result Comment: Heidy mated Average Glucose calculated by equation ((28.7xA1C)-46.7) Estimated average glucose (eAG) is a calculated value from Hemoglobin A1C and is phone representative of the average blood glucose level in the last 2-3 month period. Normal range: less than 114 mg/dL Performed By: #### A 1C, CBC, GFR, ANEU, LIPID, CMP, ADIFF #### [address] [address] HbA1c (Bld) [Mass fraction] 5.3 % Normal 4.3-6.4 [facility] Comment on above: Performed By: #### A 1C, CBC, GFR, ANEU, LIPID, CMP, ADIFF #### [address] [address] CBCon 05-30-2025 Erythrocyte distribution width (RBC) [Ratio] 13.1 % Normal 11.5-15.5 [facility] Comment on above: Performed By: #### A 1C, CBC, GFR, ANEU, LIPID, CMP, ADIFF #### [address] [address] Hematocrit (Bld) [Volume fraction] 38.5 % Normal 34.0-46.0 [facility] Comment on above: Performed By: #### A 1C, CBC, GFR, ANEU, LIPID, CMP, ADIFF #### [address] [address] Hgb 13.3 G/dL Normal 12.0-16.0 [facility] Comment on above: Performed By: #### A 1C, CBC, GFR, ANEU, LIPID, CMP, ADIFF #### [place] [id number] MCH (RBC) [Entitic mass] 32.0 pg Normal 27.0-33.0 [facility] Comment on above: Performed By: #### A 1C, CBC, GFR, ANEU, LIPID, CMP, ADIFF #### [address] [address] MCHC 34.6 G/dL Normal 32.0-36.0 [facility] Comment on above: Performed By: #### A 1C, CBC, GFR, ANEU, LIPID, CMP, ADIFF #### [address] [address] MCV (RBC) [Entitic vol] 92.6 fL Normal 80.0-99.0 [facility] Comment on above: Performed By: #### A 1C, CBC, GFR, ANEU, LIPID, CMP, ADIFF #### [address] [address] Platelet 223 10 3/mcL Normal 150-450 [facility] Comment on above: Performed By: #### A 1C, CBC, GFR, ANEU, LIPID, CMP, ADIFF #### [address] [address] Platelet mean volume (Bld) [Entitic vol] 8.3 fL Normal 6.6-10.5 [facility] Comment on above: Performed By: #### A 1C, CBC, GFR, ANEU, LIPID, CMP, ADIFF #### [address] [address] RBC 4.15 10 6/mcL Normal 4.10-5.30 [facility] Comment on above: Performed By: #### A 1C, CBC, GFR, ANEU, LIPID, CMP, ADIFF #### [address] [address] WBC 4.0 10 3/mcL Low 4.5-10.8 [facility] Comment on above: Performed By: #### A 1C, CBC, GFR, ANEU, LIPID, CMP, ADIFF #### [address] [address] CMPon 05-30-2025 Albumin Level 3.4 G/dL Low 3.5-5.0 [facility] Comment on above: Performed By: #### A 1C, CBC, GFR, ANEU, LIPID, CMP, ADIFF #### [address] [address] Albumin/Globulin [Mass ratio] 1.0 {ratio} Low 1.1-2.5 [facility] Comment on above: Performed By: #### A 1C, CBC, GFR, ANEU, LIPID, CMP, ADIFF #### [address] [address] ALP [Catalytic activity/Vol] 64 U/L Normal 40-135 [facility] Comment on above: Performed By: #### A 1C, CBC, GFR, ANEU, LIPID, CMP, ADIFF #### [address] [address] ALT [Catalytic activity/Vol] 15 U/L Normal 14-59 [facility] Comment on above: Performed By: #### A 1C, CBC, GFR, ANEU, LIPID, CMP, ADIFF #### [address] [address] AST [Catalytic activity/Vol] 18 U/L Normal 10-40 [facility] Comment on above: Performed By: #### A 1C, CBC, GFR, ANEU, LIPID, CMP, ADIFF #### [address] [address] Bili Total 0.4 mg/dL Normal 0.2-1.0 [facility] Comment on above: Result Comment: Use of this assay is not recommended for patients undergoing treatment with eltrombopag due to the potential for falsely elevated results. Performed By: #### A 1C, CBC, GFR, ANEU, LIPID, CMP, ADIFF #### [address] [address] BUN/Creatinine Ratio 19 ratio Normal 7-27 [facility] Comment on above: Performed By: #### A 1C, CBC, GFR, ANEU, LIPID, CMP, ADIFF #### [address] [address] Calcium [Mass/Vol] 8.4 mg/dL Normal 8.4-10.2 [facility] Comment on above: Performed By: #### A 1C, CBC, GFR, ANEU, LIPID, CMP, ADIFF #### [address] [address] Chloride [Moles/Vol] 106 mmol/L Normal 98-107 [facility] Comment on above: Performed By: #### A 1C, CBC, GFR, ANEU, LIPID, CMP, ADIFF #### [address] [address] CO2 [Moles/Vol] 31 mmol/L High 22-29 [facility] Comment on above: Performed By: #### A 1C, CBC, GFR, ANEU, LIPID, CMP, ADIFF #### [address] [address] Creatinine [Mass/Vol] 0.74 mg/dL Normal 0.51-0.95 [facility] Comment on above: Performed By: #### A 1C, CBC, GFR, ANEU, LIPID, CMP, ADIFF #### [address] [address] Electrolyte Balance 5.0 mEq/L Normal 4.0-15.[address] [facility] Comment on above: Performed By: #### A 1C, CBC, GFR, ANEU, LIPID, CMP, ADIFF #### [address] [address] Globulin 3.4 G/dL Normal 2.7-4.4 [facility] Comment on above: Performed By: #### A 1C, CBC, GFR, ANEU, LIPID, CMP, ADIFF #### [address] [address] Glucose [Mass/Vol] 94 mg/dL Normal 70-105 [facility] Comment on above: Performed By: #### A 1C, CBC, GFR, ANEU, LIPID, CMP, ADIFF #### [address] [address] Potassium [Moles/Vol] 3.7 mmol/L Normal 3.5-5.1 [facility] Comment on above: Performed By: #### A 1C, CBC, GFR, ANEU, LIPID, CMP, ADIFF #### [address] [address] Sodium [Moles/Vol] 142 mmol/L Normal 136-145 [facility] Comment on above: Performed By: #### A 1C, CBC, GFR, ANEU, LIPID, CMP, ADIFF #### [address] [address] Total Protein 6.8 G/dL Normal 6.4-8.2 [facility] Comment on above: Performed By: #### A 1C, CBC, GFR, ANEU, LIPID, CMP, ADIFF #### [address] [address] Urea nitrogen [Mass/Vol] 14 mg/dL Normal 7-18 [facility] Comment on above: Performed By: #### A 1C, CBC, GFR, ANEU, LIPID, CMP, ADIFF #### [address] [address] LABORATORYOrdered By: SYSTEM SYSTEM on 05-30-2025 Albumin BCP dye [Mass/Vol] 3.4 G/dL Low 3.5 - 5.0 G/dL AO ADM SS Albumin/Globulin [Mass ratio] 1.0 {ratio} Low 1.1 - 2.5 ratio AO ADM SS ALP [Catalytic activity/Vol] 64 U/L Normal 40 - 135 U/L AO ADM SS ALT With P-5'-P [Catalytic activity/Vol] 15 U/L Normal 14 - 59 U/L AO ADM SS AST With P-5'-P [Catalytic activity/Vol] 18 U/L Normal 10 - 40 U/L AO ADM SS Basophils (Bld) [#/Vol] 0.0 103/mcL Normal 0.0 - 0.3 10^3/mcL AO Workflow SS Basophils/100 WBC (Bld) 0.4 % Normal 0.0 - 2.5 % AO Workflow SS Bilirubin [Mass/Vol] 0.4 mg/dL Normal 0.2 - 1 .0 mg/dL AO ADM SS Comment on above: Interpretive Data: U se of this assay is not recommended for patients undergoing treatment with eltrombopag due to the potential for falsely elevated results. Calcium [Mass/Vol] 8.4 mg/dL Normal 8.4 - 10. 2 mg/dL AO ADM SS Chloride [Moles/Vol] 106 mmol/L Normal 98 - 10 7 mmol/L AO ADM SS CO2 [Moles/Vol] 31 mmol/L High 22 - 29 mmol/L AO ADM SS Creatinine [Mass/Vol] 0.74 mg/dL Normal 0.51 - 0.95 mg/dL AO ADM SS Electrolyte Balance 5.0 mEq/L Normal 4.0 - 15 .0 mEq/L AO ADM SS Eosinophil, Absolute 0.1 103/mcL Normal 0.0 - 0 .7 10^3/mcL AO Workflow SS Eosinophils/100 WBC (Bld) 2.0 % Normal 0.0 - 6.0 % AO Workflow SS Erythrocyte distribution width (RBC) [Ratio] 13.1 % Normal 11.5 - 15.5 % AO Workflow SS Estimated Glomerular Filtration Rate 93 ml/min/1.73sqm Invalid Interpretation Code AO Chemistry S Comment on above: Interpretive Data: Stages of Chronic Kidney Disease (CKD) Stage Description eGFR(ml/min/1.73 sq.m.) CKD 1 Normal kidney function or >=90 normal kindney function with possible kidney damage (ex. Proteinuria) CKD 2 Kidney damage with mild loss 60-89 of kidney function CKD 3a Mild to moderate loss of kidney 45-59 function CKD 3b Moderate to severe loss of 30-44 of kindey function CKD 4 Severe loss of kidney function 15-29 CKD 5 Kidney failure <15 Note: (go live 2024) the eGFR calculation was updated to the 2020 CKD-EPI creatinine equation without a race factor to calculate the eGFR results. Globulin 3.4 G/dL Normal 2.7 - 4.4 G/dL AO ADM SS Glucose [Mass/Vol] 94 mg/dL Normal 70 - 105 mg/dL AO ADM SS Glucose [Mass/Vol] 105 mg/dL Invalid Interpretation Code AO Chemistry S Comment on above: Interpretive Data: E stimated average glucose (eAG) is a calculated value from Hemoglobin A1C and is phone representative of the average blood glucose level in the last 2-3 month period. Normal range: less than 114 mg/dL HbA1c (Bld) [Mass fraction] 5.3 % Normal 4.3 - 6.4 % AO ADM SS Hematocrit (Bld) [Volume fraction] 38.5 % Normal 34.0 - 46.0 % AO Workflow SS Hemoglobin (Bld) [Mass/Vol] 13.3 G/dL Normal 12.0 - 16.0 G/dL AO Workflow SS Lymphocytes (Bld) [#/Vol] 2.0 103/mcL Normal 0.9 - 4.3 10^3/mcL AO Workflow SS Lymphocytes/100 WBC (Bld) 49.5 % High 20.0 - 40.0 % AO Workflow SS MCH (RBC) [Entitic mass] 32.0 pg Normal 27.0 - 33.0 pg AO Workflow SS MCHC 34.6 G/dL Normal 32.0 - 36.0 G/dL AO Workflow SS MCV (RBC) [Entitic vol] 92.6 fL Normal 80.0 - 99.0 fL AO Workflow SS Monocytes (Bld) [#/Vol] 0.3 103/mcL Normal 0.1 - 1.4 10^3/mcL AO Workflow SS Monocytes/100 WBC (Bld) 8.7 % Normal 2.0 - 13.0 % AO Workflow SS Neutrophils (Bld) [#/Vol] 1.6 103/mcL Low 2.3 - 8.1 10^3/mcL AO Workflow SS Neutrophils/100 WBC (Bld) 39.4 % Low 50.0 - 75.0 % AO Workflow SS Platelet mean volume (Bld) [Entitic vol] 8.3 fL Normal 6.6 - 10.5 fL AO Workflow SS Platelets (Bld) [#/Vol] 223 103/mcL Normal 150 - 450 10^3/mcL AO Workflow SS Potassium [Moles/Vol] 3.7 mmol/L Normal 3.5 - 5.1 mmol/L AO ADM SS Protein [Mass/Vol] 6.8 G/dL Normal 6.4 - 8.2 G/dL AO ADM SS RBC (Bld) [#/Vol] 4.15 106/mcL Normal 4.10 - 5.3 0 10^6/mcL AO Workflow SS Sodium [Moles/Vol] 142 mmol/L Normal 136 - 145 mmol/L AO ADM SS Urea nitrogen [Mass/Vol] 14 mg/dL Normal 7 - 18 mg/dL AO ADM SS Urea nitrogen/Creatinine [Mass ratio] 19 ratio Normal 7 - 27 ratio AO ADM SS WBC (Bld) [#/Vol] 4.0 103/mcL Low 4.5 - 10.8 10^3/mcL AO Workflow SS LABORATORYOrdered By: Ruben Cunningham on 05-30-2025 Cholesterol [Mass/Vol] 207 mg/dL High 0 - 200 mg/dL AO ADM SS Comment on above: Interpretive Data: C holesterol Reference Interval: Less than 200 Desirable 200-239 Borderline high risk 240 and above High risk Cholesterol in HDL [Mass/Vol] 60 mg/dL Normal 40 - 60 mg/dL AO ADM SS Cholesterol in LDL [Mass/Vol] 133 mg/dL High 0 - 130 mg/dL AO ADM SS Triglyceride [Mass/Vol] 70 mg/dL Normal 0 - 150 mg/dL AO ADM SS Comment on above: Interpretive Data: T riglyceride Reference Interval: Less than 150 Normal 150-199 Borderline high risk 200-499 High risk 500 or higher Very high risk LIPIDon 05-30-2025 Cholesterol [Mass/Vol] 207 mg/dL High 0-200 [facility] Comment on above: Result Comment: Chol esterol Reference Interval: Less than 200 Desirable 200-239 Borderline high risk 240 and above High risk Performed By: #### A 1C, CBC, GFR, ANEU, LIPID, CMP, ADIFF #### [place] [address] Cholesterol in HDL [Mass/Vol] 60 mg/dL Normal 40-60 [facility] Comment on above: Performed By: #### A 1C, CBC, GFR, ANEU, LIPID, CMP, ADIFF #### [place] [address] [place], [place] [address] Cholesterol in LDL [Mass/Vol] 133 mg/dL High 0-130 [facility] Comment on above: Performed By: #### A 1C, CBC, GFR, ANEU, LIPID, CMP, ADIFF #### [place] [address] [place], [place] [address] Triglyceride [Mass/Vol] 70 mg/dL Normal 0-150 [facility] Comment on above: Result Comment: Trig lyceride Reference Interval: Less than 150 Normal 150-199 Borderline high risk 200-499 High risk 500 or higher Very high risk Performed By: #### A 1C, CBC, GFR, ANEU, LIPID, CMP, ADIFF #### [address] [place] [place], [place] [address] SCRN MAMM (CAD)W/WILBUR BILATo n 10-18-2024 SCRN MAMM (CAD)W/WILBUR BILAT [facility] Imaging Services [address] [place] [id number] SCRN MAMM (CAD)W/WILBUR BILAT MR#: [id number] Acct: [id number] Name: ANDRY MCKEON Rep #: [id number] : 1965 F 58 From: Julio César peace MD PCP: Mauro Hernández, HUMAN RESOURCES GENERALIST-C [facility] Study: SCRN MAMM (CAD)W/WILBUR BILAT Date of Exam: 09/22 05/15 Exam# [id number] Ordering Dr: Elaine Cottrell DO PROCEDURE: SCRN MAMM (CAD)W/WILBUR BILAT REASON FOR EXAM: F, Age 58 y/o, no family history. TECHNIQUE: Bilateral screening digital breast tomosynthesis with 2D and 3D images. Computer aided detection. COMPARISON: Prior exam(s) dating back to October 16, 2023.. FINDINGS: The breasts are heterogeneously dense which may obscure small masses. Stable examination. Stable small benign-appearing bilateral axillary lymph nodes. No suspicious masses, areas of developing architectural distortion, or suspicious calcifications. BI/SCRN MAMM (CAD)W/WILBUR BILAT IMPRESSION: BI-RADS 2: BENIGN. RECOMMEND ANNUAL MAMMOGRAPHIC SCREENING. Follow-up code: Routine Follow-up The patient will be notified of the results by letter. Reading Location: [place] [address] CC: HUMAN RESOURCES GENERALISTWandy Hernández; Dr. Elaine Cottrell DO Maintenance Apprentice: Signed Normal [facility] Telephone Information Supervisor Office Visit Reporton 08-23-2024 Telephone Information Supervisor Office Visit Report [facility]'s [address], [address] [place] [address] OFFICE VISIT Date of Service: 08/23/24 MR#: [id number] Acct: [id number] Name: ANDRY MCKEON Rep #: [id number] : 1965 Provider: Dr. 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: No Is patient in pain?: No Allergies No Known Allergies Allergy (Verified 08/23/24 14:40) Medications ???Medication ???Instructions ???Recorded ???Confirmed ???Type loperamide 2 mg capsule 2 mg PO PRN PRN Diarrhea 08/23/18 08/23/24 History naproxen 500 mg tablet 500 mg PO DAILY PRN PRN Pain 08/23/18 08/23/24 History aspirin 81 mg tablet,delayed 81 mg PO DAILY 08/01/20 08/23/24 History release ascorbic acid (vitamin C) 500 mg mg PO 06/27/21 08/23/24 History capsule cholecalciferol (vitamin D3) 50 50 mcg PO DAILY 06/27/21 08/23/24 History mcg (2,000 unit) capsule evening primrose oil 500 mg capsule 500 mg PO DAILY 06/27/21 08/23/24 History famotidine 20 mg tablet 20 mg PO DAILY PRN 06/27/21 08/23/24 History cranberry 500 mg capsule 500 mg PO DAILY 01/16/22 08/23/24 History fluconazole 150 mg tablet 150 mg PO .COMPLEX #2 tabs 01/16/22 08/23/24 Rx fluconazole 150 mg tablet 150 mg PO Q3D 2 doses #2 tabs 02/21/22 08/23/24 Rx (Diflucan) lactobacillus combination no.9 4 4,000 mmu cells PO DAILY 08/01/22 08/23/24 History billion cell capsule (Adult 50 Plus Probiotic) estradiol 0.01% (0.1 mg/gram) See Rx Instructions vaginal 2XW 08/23/24 08/23/24 Rx vaginal cream #42.5 grams estradiol 1 mg tablet 1 mg PO QDAY 90 days #90 tabs 08/23/24 08/23/24 Rx Post menopausal: No Patient : No : No PFSH Medical History Pars defect with spondylolisthesis Low iron Leukopenia Surgical History History of colonoscopy History of tonsillectomy History of total hysterectomy with bilateral salpingo-oophorectomy (BSO) Family History Mother CHF (congestive heart failure) Father Bladder cancer CHF (congestive heart failure) Social History household members: spouse number of children: 2 current occupational status: employed 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 Date Name GA/Weeks Outcome Route Bth Weight Infant Gen Labor Lgth Anesthesia Del Locatn Provider FOB Unknown Pedro 1991 Unknown Renita 1996 HPI Encounter for routine gynecological examination Details: ANDRY MCKEON is a 58 year old who presents for annual exam. Last PAP: prior to hyst (w BSO) History of abnormal PAP: no Last mammogram: 10/16/85 History of abnormal mammogram: yes Colon cancer screening: up to date per patient Other preventative health care screenings: followed by pcp Female Reproductive History Questions: metorrhagia: No, sexually active: Yes, dyspareunia: No and PCB: No Menopausal Symptoms: No hot flashes, No night sweats, No weight change, No mood changes, No difficulty concentrating, No sleep problems and No change in libido ROS Const Constitutional: Reports as per HPI; Denies fatigue, increased appetite, poor appetite, night sweats, weight gain or weight loss Cardio Card: Denies chest pain Resp Resp: Denies cough or dyspnea GI GI: Reports as per HPI; Denies abdominal pain, bloating, constipation, nausea or vomiting : Reports as per HPI and other; Denies difficulty voiding, dysuria, hematuria, hot flashes, nipple discharge, pelvic pain, prolapse symptoms, urinary frequency, urinary incontinence, urinary urgency, vaginal discharge, vaginal dryness, vaginal odor or vaginal pruritus Skin Skin/Breast: Denies changing lesions, breast mass, breast pain, breast skin changes or nipple discharge Psych Psych: Denies anxiety, change in libido, depression or difficulty concentrating Exam Const General: cooperative, healthy appearing, comfortable, no acute distr (more content not included)... Normal [facility] .GFRon 07-09-2023 GFR Non- 91 ml/min/1.73sqm Normal [facility] ([place]) Comment on above: Result Comment: GFR Population mean for , [...] 15 mL/min/1.73 square meters Performed By: #### C MP, A1C, LIPID, GFR, VIDH #### [address] [address] GFR 110 ml/min/1.73sqm Normal [facility] ([place]) Comment on above: Result Comment: GFR Population mean for , [...] 15 mL/min/1.73 square meters Performed By: #### C MP, A1C, LIPID, GFR, VIDH #### [address] [address] A1Con 07-09-2023 HbA1c (Bld) [Mass fraction] 5.3 % Normal 4.3-6.4 [facility] ([place]) Comment on above: Performed By: #### C MP, A1C, LIPID, GFR, VIDH #### [address] [address] CMPon 07-09-2023 Albumin Level 3.7 G/dL Normal 3.5-5.0 [facility] ([place]) Comment on above: Performed By: #### C MP, A1C, LIPID, GFR, VIDH #### [address] [address] Albumin/Globulin [Mass ratio] 1.1 {ratio} Normal 1.1-2.5 [facility] ([place]) Comment on above: Performed By: #### C MP, A1C, LIPID, GFR, VIDH #### [address] [address] ALP [Catalytic activity/Vol] 61 U/L Normal 40-135 [facility] ([place]) Comment on above: Performed By: #### C MP, A1C, LIPID, GFR, VIDH #### [address] [address] ALT [Catalytic activity/Vol] 15 U/L Normal 14-59 [facility] ([place]) Comment on above: Performed By: #### C MP, A1C, LIPID, GFR, VIDH #### [address] [address] AST [Catalytic activity/Vol] 13 U/L Normal 10-40 [facility] ([place]) Comment on above: Performed By: #### C MP, A1C, LIPID, GFR, VIDH #### [address] [address] Bili Total 0.4 mg/dL Normal 0.2-1.0 [facility] ([place]) Comment on above: Result Comment: Use of this assay is not recommended for patients undergoing treatment with eltrombopag due to the potential for falsely elevated results. Performed By: #### C MP, A1C, LIPID, GFR, VIDH #### [address] [address] BUN/Creatinine Ratio 19 ratio Normal 7-27 [facility] ([place]) Comment on above: Performed By: #### C MP, A1C, LIPID, GFR, VIDH #### [address] [address] Calcium [Mass/Vol] 8.8 mg/dL Normal 8.4-10.2 [facility] ([place]) Comment on above: Performed By: #### C MP, A1C, LIPID, GFR, VIDH #### [address] [address] Chloride [Moles/Vol] 104 mmol/L Normal 98-107 [facility] ([place]) Comment on above: Performed By: #### C MP, A1C, LIPID, GFR, VIDH #### [address] [address] CO2 [Moles/Vol] 32 mmol/L High 22-29 [facility] ([place]) Comment on above: Performed By: #### C MP, A1C, LIPID, GFR, VIDH #### [address] [address] Creatinine [Mass/Vol] 0.67 mg/dL Normal 0.55-1.02 [facility] ([place]) Comment on above: Performed By: #### C MP, A1C, LIPID, GFR, VIDH #### [address] [address] Electrolyte Balance 7.0 mEq/L Normal 4.0-15.0 [facility] ([place]) Comment on above: Performed By: #### C MP, A1C, LIPID, GFR, VIDH #### [address] [address] Globulin 3.3 G/dL Normal [facility] ([place]) Comment on above: Performed By: #### C MP, A1C, LIPID, GFR, VIDH #### [address] [address] Glucose [Mass/Vol] 98 mg/dL Normal 70-105 [facility] ([place]) Comment on above: Performed By: #### C MP, A1C, LIPID, GFR, VIDH #### [address] [address] Potassium [Moles/Vol] 3.7 mmol/L Normal 3.5-5.1 [facility] ([place]) Comment on above: Performed By: #### C MP, A1C, LIPID, GFR, VIDH #### [address] [address] Sodium [Moles/Vol] 143 mmol/L Normal 136-145 [facility] ([place]) Comment on above: Performed By: #### C MP, A1C, LIPID, GFR, VIDH #### [address] [address] Total Protein 7.0 G/dL Normal 6.4-8.2 [facility] ([place]) Comment on above: Performed By: #### C MP, A1C, LIPID, GFR, VIDH #### [address] [address] Urea nitrogen [Mass/Vol] 13 mg/dL Normal 7-18 [facility] ([place]) Comment on above: Performed By: #### C MP, A1C, LIPID, GFR, VIDH #### [address] [place] [address] [place], [place] [address] LABORATORYOrdered By: SYSTEM SYSTEM on 07-09-2023 25-hydroxyvitamin D3 [Mass/Vol] 51.9 ng/mL Invalid Interpretation Code AO ADM SS Comment on above: Interpretive Data: I nterpretive Values Based on Total 25(OH) Vitamin D: Deficient <20 ng/mL Insufficient 20 - <30 ng/mL Sufficient 30-100 ng/mL Albumin BCP dye [Mass/Vol] 3.7 G/dL Invalid Interpretation Code 3.5 - 5.0 G/dL AO ADM SS Albumin/Globulin [Mass ratio] 1.1 {ratio} Invalid Interpretation Code 1.1 - 2.5 ratio AO ADM SS ALP [Catalytic activity/Vol] 61 U/L Invalid Interpretation Code 40 - 135 U/L AO ADM SS ALT With P-5'-P [Catalytic activity/Vol] 15 U/L Invalid Interpretation Code 14 - 59 U/L AO ADM SS AST With P-5'-P [Catalytic activity/Vol] 13 U/L Invalid Interpretation Code 10 - 40 U/L AO ADM SS Bilirubin [Mass/Vol] 0.4 mg/dL Invalid Interpretation Code 0.2 - 1.0 mg/dL AO ADM SS Comment on above: Interpretive Data: U se of this assay is not recommended for patients undergoing treatment with eltrombopag due to the potential for falsely elevated results. Calcium [Mass/Vol] 8.8 mg/dL Invalid Interpretation Code 8.4 - 10.2 mg/dL AO ADM SS Chloride [Moles/Vol] 104 mmol/L Invalid Interpretation Code 98 - 107 mmol/L AO ADM SS CO2 [Moles/Vol] 32 mmol/L Invalid Interpretation Code 22 - 29 mmol/L AO ADM SS Creatinine [Mass/Vol] 0.67 mg/dL Invalid Interpretation Code 0.55 - 1.02 mg/dL AO ADM SS Electrolyte Balance 7.0 mEq/L Invalid Interpretation Code 4.0 - 15.0 mEq/L AO ADM SS GFR/1.73 sq M.predicted among blacks MDRD (S/P/Bld) [Vol rate/Area] 110 ml/min/1.73sqm Invalid Interpretation Code AO Chemistry S Comment on above: Interpretive Data: GFR Population mean for , Non- Americans Ages 20-29 = 116 mL/min/1.73 sq.m. Ages 30-39 = 107 mL/min/1.73 sq.m. Ages 40-49 = 99 mL/min/1.73 sq.m. Ages 50-59 = 93 mL/min/1.73 sq.m. Ages 60-69 = 85 mL/min/1.73 sq.m. Ages 70+ = 75 mL/min/1.73 sq.m. Chronic Kidney Disease: Less than 60 mL/min/1.73 square meters End Stage Renal Disease: Less than 15 mL/min/1.73 square meters GFR/1.73 sq M.predicted among non-blacks MDRD (S/P/Bld) [Vol rate/Area] 91 ml/min/1.73sqm Invalid Interpretation Code AO Chemistry S Comment on above: Interpretive Data: GFR Population mean for , Non- Americans Ages 20-29 = 116 mL/min/1.73 sq.m. Ages 30-39 = 107 mL/min/1.73 sq.m. Ages 40-49 = 99 mL/min/1.73 sq.m. Ages 50-59 = 93 mL/min/1.73 sq.m. Ages 60-69 = 85 mL/min/1.73 sq.m. Ages 70+ = 75 mL/min/1.73 sq.m. Chronic Kidney Disease: Less than 60 mL/min/1.73 square meters End Stage Renal Disease: Less than 15 mL/min/1.73 square meters Globulin 3.3 G/dL Invalid Interpretation Code AO ADM SS Glucose [Mass/Vol] 98 mg/dL Invalid Interpretation Code 70 - 105 mg/dL AO ADM SS HbA1c (Bld) [Mass fraction] 5.3 % Invalid Interpretation Code 4.3 - 6.4 % AO ADM SS Potassium [Moles/Vol] 3.7 mmol/L Invalid Interpretation Code 3.5 - 5.1 mmol/L AO ADM SS Protein [Mass/Vol] 7.0 G/dL Invalid Interpretation Code 6.4 - 8.2 G/dL AO ADM SS Sodium [Moles/Vol] 143 mmol/L Invalid Interpretation Code 136 - 145 mmol/L AO ADM SS Urea nitrogen [Mass/Vol] 13 mg/dL Invalid Interpretation Code 7 - 18 mg/dL AO ADM SS Urea nitrogen/Creatinine [Mass ratio] 19 ratio Invalid Interpretation Code 7 - 27 ratio AO ADM SS LABORATORYOrdered By: Terrie Goldman on 07-09-2023 Cholesterol [Mass/Vol] 252 mg/dL Invalid Interpretation Code 0 - 200 mg/dL AO ADM SS Comment on above: Interpretive Data: C holesterol Reference Interval: Less than 200 Desirable 200-239 Borderline high risk 240 and above High risk Cholesterol in HDL [Mass/Vol] 70 mg/dL Invalid Interpretation Code 40 - 60 mg/dL AO ADM SS Cholesterol in LDL [Mass/Vol] 168 mg/dL Invalid Interpretation Code 0 - 130 mg/dL AO ADM SS Triglyceride [Mass/Vol] 72 mg/dL Invalid Interpretation Code 0 - 150 mg/dL AO ADM SS Comment on above: Interpretive Data: T riglyceride Reference Interval: Less than 150 Normal 150-199 Borderline high risk 200-499 High risk 500 or higher Very high risk LIPIDon 07-09-2023 Cholesterol [Mass/Vol] 252 mg/dL High 0-200 [facility] ([place]) Comment on above: Result Comment: Chol esterol Reference Interval: Less than 200 Desirable 200-239 Borderline high risk 240 and above High risk Performed By: #### C MP, A1C, LIPID, GFR, VIDH #### [address] [address] Cholesterol in HDL [Mass/Vol] 70 mg/dL High 40-60 [facility] ([place]) Comment on above: Performed By: #### C MP, A1C, LIPID, GFR, VIDH #### [address] [address] Cholesterol in LDL [Mass/Vol] 168 mg/dL High 0-130 [facility] ([place]) Comment on above: Performed By: #### C MP, A1C, LIPID, GFR, VIDH #### [place] [address] [place], [place] [address] Triglyceride [Mass/Vol] 72 mg/dL Normal 0-150 [facility] ([place]) Comment on above: Result Comment: Trig lyceride Reference Interval: Less than 150 Normal 150-199 Borderline high risk 200-499 High risk 500 or higher Very high risk Performed By: #### C MP, A1C, LIPID, GFR, VIDH #### [place] [address] [place], [place] [address] VIDHon 07-09-2023 Vit. D 25-Hydroxy 51.9 ng/mL Normal [facility] ([place]) Comment on above: Result Comment: Inte rpretive Values Based on Total 25(OH) Vitamin D: Deficient <20 ng/mL Insufficient 20 - <30 ng/mL Sufficient 30-100 ng/mL Performed By: #### C MP, A1C, LIPID, GFR, VIDH #### [place] [address] [place], [place] [address] Culture, urineon 02-21-2022 Bacteria identified Cx Nom (U) Positive [facility] Work Phone: Laboratory - Chemistry and C hemistry - challengeon 02-21-2022 Bilirubin Ql (U) Negative [facility] Work Phone: Glucose Ql (U) Negative [facility] Work Phone: Ketones Ql (U) Negative [facility] Work Phone: pH (U) 5.0 [pH] [facility] Work Phone: Specific gravity (U) [Rel density] 1.005 [facility] Work Phone: Urobilinogen (U) [Mass/Vol] Negative [facility] Work Phone: Laboratory - Hematology and Cell countson 02-21-2022 Hemoglobin Ql (U) Negative [facility] Work Phone: Laboratory - Specimen inform ationon 02-21-2022 Clarity (U) Clear [facility] Work Phone: Color (U) YELLOW [facility] Work Phone: Laboratory - Urinalysison Nitrite Ql (U) Negative [facility] Work Phone: Protein Ql (U) Negative [facility] Work Phone: No Panel Informationon 02-21 Urine Leukocytes Negatve [facility] Work Phone: Urine Non-Hemolyzed Blood Negative [facility] Work Phone: Gram stain for investigation of transfusion reactionon 01-16-2022 Microscopic observation Gram stain Nom (Unsp spec) [facility] Work Phone: No Panel Informationon 01-16 POC Bacterial Vaginitis (Rapid) Negative [facility] Work Phone: Thin prep Papanicolaou smear with manual screeningon 01-16-2022 Genital Culture Presumptive C albicans [facility] Work Phone: CNOVSPon 04-24-2020 CNOVSP Visit (SP) Office (HEMA[place]) ANDRY MCKEON ([id number]) 1965 F Date Time Provider Department 04/24/20 10:00 AM NATALIA BLUM During your visit today, we recorded the following information about you: Temperature Pulse Blood pressure Weight 98.2 degrees 63/minute 122/74 70.8 kg Natalia Blum APRN.CNP 04/25/2020 8:09 AM Signed Chief Complaint Patient presents with: Established Patient HPI: Andry Mckeon is a 54 year old female who presents here today for follow up ADAMA. Per Dr. Beebe's previous note: H/o was diagnosed with influenza and treated with Tamiflu. She said she had many side effects including restlessness and insomnia as well as significant diarrhea for several days. After that she said she wasn't feeling that well and had a checkup and was found to have this really significant lab abnormality a neutrophil count of 1800. ? A CBC was repeated on 02/19/2018 and it revealed a total white count of 3200. The ANC was 1500. The remainder the differential was normal. The hemoglobin was 12.3 g/dL. Platelet count 1 49,000. Reticulocytes were within normal range. Vitamin B 12 was low normal at 251 pg per mL. ? 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 ? Patient has a sister who has a history of rheumatoid arthritis and takes methotrexate. She also has a history with Down syndrome who according the patient's report also has neutropenia. ? ? ? S/p hysterectomy 2017-Dr. Sanchez. Off oral iron since December 2018. No complaints. ? ? Appetite:Good Energy level:Good Denies fevers or recent illness. Resp:denies cough or sob Cardiac:denies chest pain/palpitations GI:denies abd pain, n/v, moving bowels regularly :denies dysuria/hematuria Extrem:denies pain Neuro:denies symptoms of neuropathy Skin:denies rashes/lesions Heme:denies bleeding The ROS is otherwise negative. Past medical history, appointments, medications, allergies reviewed. No changes. EXAM: BP 122/74 Pulse 63 Temp 36.8 ?C (98.2 ?F) (Temporal) Wt 70.8 kg (156 lb) BMI 26.63 kg/m? APPEARANCE Well appearing, alert, in no acute distress, well-hydrated, well nourished. HEART RRR with normal S1 and S2, no murmurs LUNG clear to auscultation LYMPH NODES No cervical lymphadenopathy, No supraclavicular lymphadenopathy and No axillary lymphadenopathy. ABDOMEN bowel sounds normoactive, soft, non-tender, non-distended, without organomegaly or palpable masses EXTREMITIES No edema NEURO Awake, alert and oriented x 3, Normal gait and No involuntary motions. SKIN Skin color, texture, turgor normal, no suspicious rashes or lesions LABS: Component Latest Ref Rng AND Units 12/24/2018 06/28/2019 04/17/2020 WBC 3.70 - 11.00 k/uL 5.57 RBC 3.90 - 5.20 m/uL 4.16 Hemoglobin 11.5 - 15.5 g/dL 13.0 Hematocrit 36.0 - 46.0 % 39.6 MCV 80.0 - 100.0 fL 95.2 MCH 26.0 - 34.0 pG 31.3 MCHC 30.5 - 36.0 g/dL 32.8 RDW-CV 11.5 - 15.0 % 12.6 Platelet Count 150 - 400 k/uL 272 MPV 9.0 - 12.7 fL 10.1 Neut% % 59.8 Abs Neut (ANC) 1.45 - 7.50 k/uL 3.32 Lymph% % 30.7 Abs Lymph 1.00 - 4.00 k/uL 1.71 [place]% % 7.5 Abs [place] <0.87 k/uL 0.42 Eosin% % 1.6 Abs Eosin <0.46 k/uL 0.09 Baso% % 0.4 Abs Baso <0.11 k/uL <0.03 Nucleated Reds 0 /100 WBC 0.0 Absolute nRBC <0.01 k/uL <0.01 Diff Type Auto Diff WBC, [place] 3.70 - 11.00 k/uL 5.03 4.70 RBC, [place] 3.90 - 5.20 m/uL 4.01 4.26 Hemoglobin, [place] 11.5 - 15.5 g/dL 12.6 13.3 Hematocrit, [place] 36.0 - 46.0 % 38.7 40.6 MCV, [place] 80.0 - 100.0 fL 96.5 95.3 MCH, Omar 26.0 - 34.0 pg 31.4 31.2 MCHC, Omar 30.5 - 36.0 g/dL 32.6 32.8 RDW, [place] 11.5 - 15.0 % 12.7 12.8 Platelet Cnt, Omar 150 - 400 k/uL 279 256 MPV, Omar 9.0 - 12.7 fL 10.3 9.8 Absol Gran Count 1.45 - 7.50 k/uL 2.46 2.61 Component Latest Ref Rng AND Units 09/22/2018 12/24/2018 06/28/2019 04/17/2020 Ferritin 14.7 - 205.1 ng/mL 21.8 37.0 34.0 40.5 Component Latest Ref Rng AND Units 09/22/2018 12/24/2018 06/28/2019 04/17/2020 Iron 41 - 186 ug/dL 99 132 88 90 TIBC 232 - 386 ug/dL 395 (H) 339 347 376 Transferrin Saturation 15 - 57 % 25 39 25 24 ASSESSMENT/PLAN: 1. Iron deficiency anemia due to chronic blood loss - ICD9: 280.0, ICD10: D50.[address] Beebe's previous note: -Had colonoscopy 03/2018. -Heavy menses with clots. -Tolerating oral iron well. Plan: -Recheck CBC/Iron in about 6 months. -Continue oral iron. -OV/CBC/Iron studies in about a year. ? ? - No concerning findings on exam. - Pt. is s/p total hysterectomy (2017). No bleeding. - Off oral iron for over a year now. - Reviewed labs with pt. ADAMA resolved. - Follow up prn. - Pt. aware to call office with any questions/concerns. ? ? The patient indicates understanding of these issues and agrees with the plan. ? ? All documentation from previous visit of 12/31/18-Dr. Beebe/myself was copied and pasted, documentation has been reviewed and edited as necessary for today's visit. ? Natalia Blum, JULIA.PLASTIC CNC MACHINE OPERATOR Referring Provider: HONORIO BEEBE [[id number]] Allergies As of Date: 04/24/2020 (No Known Allergies) Date Reviewed: 04/24/2020 Reviewed by: Natalia Blum - Fully Assessed Reason for Visit: Established Patient [175] Primary Visit Diagnosis:Iron deficiency anemia due to chronic blood loss [D50.0] Follow-up and Disposition History Recorded Prescriptions as of 04/24/2020 Sig: FAMOTIDINE 20 MG TABLET Take 20 mg by mouth as needed. ESTRADIOL 1 MG TABLET Take 1 mg by mouth once daily* ASPIRIN 81 MG TABLET,DELAYED * Take 81 mg by mouth once fidelia* LOPERAMIDE 2 MG TABLET Take 2 mg by mouth as needed. CRANBERRY EXTRACT ORAL Take one tablet by mouth on T* NAPROXEN 500 MG TABLET Take 500 mg by mouth twice da* Medication notes this encounter RANITIDINE 150 MG TABLET >> Richard Catherine MA 04/24/2020 10:07 AM >> RICHARD CATHERINE MA Apr 24, 2020 10:07 AM No longer taking. Problem List As Of Date 04/24/2020 Noted Resolved Iron deficiency anemia due to chronic blood los*06/25/2018 Encounter Status:Closed by NATALIA BLUM CNP on 04/25/20 Normal [facility] PROGRESSon 04-24-2020 PROGRESS HNO ID: [id number] Author: Natalia Blum Service: ? Author Type: Nurse Practitioner Type: Progress Notes Filed: 04/25/2020 8:09 AM Note Text: Chief Complaint Patient presents with: Established Patient HPI: Andry Mckeon is a 54 year old female who presents here today for follow up ADAMA. Per Dr. Beebe's previous note: H/o was diagnosed with influenza and treated with Tamiflu. She said she had many side effects including restlessness and insomnia as well as significant diarrhea for several days. After that she said she wasn't feeling that well and had a checkup and was found to have this really significant lab abnormality a neutrophil count of 1800. ? A CBC was repeated on 02/19/2018 and it revealed a total white count of 3200. The ANC was 1500. The remainder the differential was normal. The hemoglobin was 12.3 g/dL. Platelet count 1 49,000. Reticulocytes were within normal range. Vitamin B 12 was low normal at 251 pg per mL. ? 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 ? Patient has a sister who has a history of rheumatoid arthritis and takes methotrexate. She also has a history with Down syndrome who according the patient's report also has neutropenia. ? ? ? S/p hysterectomy 2017-Dr. Sanchez. Off oral iron since December 2018. No complaints. ? ? Appetite:Good Energy level:Good Denies fevers or recent illness. Resp:denies cough or sob Cardiac:denies chest pain/palpitations GI:denies abd pain, n/v, moving bowels regularly :denies dysuria/hematuria Extrem:denies pain Neuro:denies symptoms of neuropathy Skin:denies rashes/lesions Heme:denies bleeding The ROS is otherwise negative. Past medical history, appointments, medications, allergies reviewed. No changes. EXAM: BP 122/74 Pulse 63 Temp 36.8 ?C (98.2 ?F) (Temporal) Wt 70.8 kg (156 lb) BMI 26.63 kg/m? APPEARANCE Well appearing, alert, in no acute distress, well-hydrated, well nourished. HEART RRR with normal S1 and S2, no murmurs LUNG clear to auscultation LYMPH NODES No cervical lymphadenopathy, No supraclavicular lymphadenopathy and No axillary lymphadenopathy. ABDOMEN bowel sounds normoactive, soft, non-tender, non-distended, without organomegaly or palpable masses EXTREMITIES No edema NEURO Awake, alert and oriented x 3, Normal gait and No involuntary motions. SKIN Skin color, texture, turgor normal, no suspicious rashes or lesions LABS: Component Latest Ref Rng AND Units 12/24/2018 06/28/2019 04/17/2020 WBC 3.70 - 11.00 k/uL 5.57 RBC 3.90 - 5.20 m/uL 4.16 Hemoglobin 11.5 - 15.5 g/dL 13.0 Hematocrit 36.0 - 46.0 % 39.6 MCV 80.0 - 100.0 fL 95.2 MCH 26.0 - 34.0 pG 31.3 MCHC 30.5 - 36.0 g/dL 32.8 RDW-CV 11.5 - 15.0 % 12.6 Platelet Count 150 - 400 k/uL 272 MPV 9.0 - 12.7 fL 10.1 Neut% % 59.8 Abs Neut (ANC) 1.45 - 7.50 k/uL 3.32 Lymph% % 30.7 Abs Lymph 1.00 - 4.00 k/uL 1.71 [place]% % 7.5 Abs [place] <0.87 k/uL 0.42 Eosin% % 1.6 Abs Eosin <0.46 k/uL 0.09 Baso% % 0.4 Abs Baso <0.11 k/uL <0.03 Nucleated Reds 0 /100 WBC 0.0 Absolute nRBC <0.01 k/uL <0.01 Diff Type Auto Diff WBC, Omar 3.70 - 11.00 k/uL 5.03 4.70 RBC, [place] 3.90 - 5.20 m/uL 4.01 4.26 Hemoglobin, [place] 11.5 - 15.5 g/dL 12.6 13.3 Hematocrit, Omar 36.0 - 46.0 % 38.7 40.6 MCV, [place] 80.0 - 100.0 fL 96.5 95.3 MCH, [place] 26.0 - 34.0 pg 31.4 31.2 MCHC, Omar 30.5 - 36.0 g/dL 32.6 32.8 RDW, Omar 11.5 - 15.0 % 12.7 12.8 Platelet Cnt, [place] 150 - 400 k/uL 279 256 MPV, [place] 9.0 - 12.7 fL 10.3 9.8 Absol Gran Count 1.45 - 7.50 k/uL 2.46 2.61 Component Latest Ref Rng AND Units 09/22/2018 12/24/2018 06/28/2019 04/17/2020 Ferritin 14.7 - 205.1 ng/mL 21.8 37.0 34.0 40.5 Component Latest Ref Rng AND Units 09/22/2018 12/24/2018 06/28/2019 04/17/2020 Iron 41 - 186 ug/dL 99 132 88 90 TIBC 232 - 386 ug/dL 395 (H) 339 347 376 Transferrin Saturation 15 - 57 % 25 39 25 24 ASSESSMENT/PLAN: 1. Iron deficiency anemia due to chronic blood loss - ICD9: 280.0, ICD10: D50.[address] Beebe's previous note: -Had colonoscopy 03/2018. -Heavy menses with clots. -Tolerating oral iron well. Plan: -Recheck CBC/Iron in about 6 months. -Continue oral iron. -OV/CBC/Iron studies in about a year. ? ? - No concerning findings on exam. - Pt. is s/p total hysterectomy (2017). No bleeding. - Off oral iron for over a year now. - Reviewed labs with pt. ADAMA resolved. - Follow up prn. - Pt. aware to call office with any questions/concerns. ? ? The patient indicates understanding of these issues and agrees with the plan. ? ? All documentation from previous visit of 12/31/18-Dr. Beebe/myself was copied and pasted, documentation has been reviewed and edited as necessary for today's visit. ? Natalia Blum, GYNECOLOGY TEACHER.PLASTIC CNC MACHINE OPERATOR Normal [facility] CBC and Differentialon 04-17 Abs Baso <0.03 Normal <0.11 [facility] Abs [place] 0.42 k/uL Normal <0.87 [facility] Abs Neut 3.32 k/uL Normal 1.45-7.50 [facility] Absolute nRBC <0.01 Normal <0.01 [facility] Basophils/100 WBC (Bld) 0.4 % Normal [facility] DTYPE Auto Diff Normal [facility] Eosinophils (Bld) [#/Vol] 0.09 10*3/uL Normal <0.46 [facility] Eosinophils/100 WBC (Bld) 1.6 % Normal [facility] Erythrocyte distribution width (RBC) [Ratio] 12.6 % Normal 11.5-15.0 [facility] Hematocrit (Bld) [Volume fraction] 39.6 % Normal 36.0-46.0 [facility] Hemoglobin (Bld) [Mass/Vol] 13.0 g/dL Normal 11.5-15.5 [facility] Lymphocytes (Bld) [#/Vol] 1.71 10*3/uL Normal 1.00-4.00 [facility] Lymphocytes/100 WBC (Bld) 30.7 % Normal [facility] MCH (RBC) [Entitic mass] 31.3 pG Normal 26.0-34.0 [facility] MCHC (RBC) [Mass/Vol] 32.8 g/dL Normal 30.5-36.0 [facility] MCV (RBC) [Entitic vol] 95.2 fL Normal 80.0-100.0 [facility] Monocytes/100 WBC (Bld) 7.5 % Normal [facility] Neutrophils/100 WBC (Bld) 59.8 % Normal [facility] NRBCs 0.0 /100 WBC Normal 0 [facility] Platelet mean volume (Bld) [Entitic vol] 10.1 fL Normal 9.0-12.7 [facility] Platelets (Bld) [#/Vol] 272 10*3/uL Normal 150-400 [facility] RBC (Bld) [#/Vol] 4.16 10*6/uL Normal 3.90-5.20 [facility] WBC (Bld) [#/Vol] 5.57 10*3/uL Normal 3.70-11.00 [facility] Ferritinon 04-17-2020 Ferritin [Mass/Vol] 40.5 ng/mL Normal 14.7-205.1 [facility] Comment on above: Performed By: #### I YAJAIRA, FERR #### [facility] [address] [place], [place] [address] Iron and TIBCon 04-17-2020 Iron [Mass/Vol] 90 ug/dL Normal 41-186 [facility] Comment on above: Performed By: #### I YAJAIRA, FERR #### [facility] [address] [place], [place] [address] TIBC 376 ug/dL Normal 232-386 [facility] Comment on above: Performed By: #### I YAJAIRA, FERR #### [facility] [address] [place], [place] [address] Transferrin Saturatn 24 % Normal 15-57 [facility] Comment on above: Performed By: #### I YAJAIRA, FERR #### [facility] [address] [place] [id number] CNPNon 04-13-2020 CNPN Telephone (HEMAWS) ANDRY MCKEON ([id number]) 1965 F Date Time Provider Department 04/13/20 HONORIO BEEBE During your visit today, we recorded the following information about you: Richard Houston Pss 04/13/2020 2:42 PM Signed Patient called to ask when she needs labs or appointment with Abiel Please call [phone] Thank you Richard Houston Pss Inga Goodwin Pss 04/13/2020 3:51 PM Signed Patient was scheduled in December with Natalia for cbc/iron studies with OV a week later. Patient canceled due to COVID. Please advise if this patient will be needing same thing. Natalia Blum APRN.CNP 04/16/2020 8:00 AM Signed Yes, CBC/iron studies OV. Thank you. ROSSY Sanz 04/16/2020 8:49 AM Signed Spoke with patient and scheduled labs for tomorrow and OV next Thursday. Please place lab orders for tomorrow. Lani Partida LPN 04/16/2020 8:51 AM Signed Please file orders. Marlys Blum APRN.CNP 04/16/2020 8:54 AM Signed Done. Natalia Blum APRN.CNP Allergies As of Date: 04/13/2020 (No Known Allergies) Date Reviewed: 12/31/2018 Reviewed by: Natalia Blum - Fully Assessed Reason for Visit: Appointment [186] Primary Visit Diagnosis:Iron deficiency anemia due to chronic blood loss [D50.0] Order(s):CBC + DIFF [SQCBCDIF] Order #: [id number] FUTURE IRON + TIBC [SQIRON] Order #: [id number] FUTURE FERRITIN BLD [SQFERR] Order #: [id number] FUTURE Prescriptions as of 04/13/2020 Sig: ESTRADIOL 1 MG TABLET Take 1 mg by mouth once daily* ASPIRIN 81 MG TABLET,DELAYED * Take 81 mg by mouth once fidelia* LOPERAMIDE 2 MG TABLET Take 2 mg by mouth as needed. RANITIDINE 150 MG TABLET Take 150 mg by mouth once gogo* CRANBERRY EXTRACT ORAL Take one tablet by mouth on T* NAPROXEN 500 MG TABLET Take 500 mg by mouth twice da* Problem List As Of Date 04/13/2020 Noted Resolved Iron deficiency anemia due to chronic blood los*06/25/2018 Encounter Status:Closed by LANI VALENTIN on 04/16/20 [facility] PROGRESSon 06-30-2019 PROGRESS HNO ID: [id number] Author: Natalia Blum Service: ? Author Type: Nurse Practitioner Type: Progress Notes Filed: 06/30/2019 8:15 AM Note Text: See my chart message. Natalia Blum APRN.CNP Normal [facility] Ferritinon 06-28-2019 Ferritin [Mass/Vol] 34.0 ng/mL Normal 14.7-205.1 [facility] Comment on above: Performed By: #### I YAJAIRA, FERR #### [place] [id number] [place] [address] Iron and TIBCon 06-28-2019 Iron [Mass/Vol] 88 ug/dL Normal 41-186 [facility] Comment on above: Performed By: #### Natasha GATES, FERR #### [place] [phone] TIBC 347 ug/dL Normal 232-386 [facility] Comment on above: Performed By: #### I YAJAIRA, FERR #### [place] [phone] Transferrin Saturatn 25 % Normal 15-57 [facility] Comment on above: Performed By: #### Natasha GATES, FERR #### [place] [address] Omar Abs Gr + CBCon 06-28 Absol Gran Count 2.61 k/uL Normal 1.45-7.50 [facility] Erythrocyte distribution width (RBC) [Ratio] 12.8 % Normal 11.5-15.0 [facility] Hematocrit (Bld) [Volume fraction] 40.6 % Normal 36.0-46.0 [facility] Hemoglobin (Bld) [Mass/Vol] 13.3 g/dL Normal 11.5-15.5 [facility] MCH (RBC) [Entitic mass] 31.2 pg Normal 26.0-34.0 [facility] MCHC (RBC) [Mass/Vol] 32.8 g/dL Normal 30.5-36.0 [facility] MCV (RBC) [Entitic vol] 95.3 fL Normal 80.0-100.0 [facility] Platelet mean volume (Bld) [Entitic vol] 9.8 fL Normal 9.0-12.7 [facility] Comment on above: Result Comment: Test performed by: [facility] [address] [place] [address]. RBC (Bld) [#/Vol] 4.26 10*6/uL Normal 3.90-5.20 [facility] WBC (Bld) [#/Vol] 4.70 10*3/uL Normal 3.70-11.00 [facility] Platelet Cnt 256 k/uL Normal 150-400 [facility] Vital Signs Date Time Vital Sign Value Performing Clinician Deana cade 08-01-2022 09:08-0500 Body height 165.1 cm HUMAN RESOURCES GENERALIST-C Mauro Hernández HUMAN RESOURCES GENERALIST Work Phone: [facility] 08-01-2022 09:08-0500 Body mass index (BMI) [Ratio] 25.2 kg/m2 HUMAN RESOURCES GENERALIST-C Mauro Hernández HUMAN RESOURCES GENERALIST Work Phone: [facility] 08-01-2022 09:08-0500 Body weight 68.66 kg HUMAN RESOURCES GENERALIST-C Mauro Hernández HUMAN RESOURCES GENERALIST Work Phone: [facility] 08-01-2022 09:08-0500 Diastolic blood pressure 74 mm[Hg] HUMAN RESOURCES GENERALIST-C Mauro Hernández HUMAN RESOURCES GENERALIST Work Phone: [facility] 08-01-2022 09:08-0500 Systolic blood pressure 119 mm[Hg] HUMAN RESOURCES GENERALIST-C Mauro Hernández HUMAN RESOURCES GENERALIST Work Phone: [facility] 02-21-2022 14:11-0400 Body height 165.[address] Elaine Cottrell Work Phone: [facility] Work Phone: 02-21-2022 14:11-0400 Body mass index (BMI) [Ratio] 24.7 kg/m2 Dr. Elaine Cottrell Work Phone: [facility] Work Phone: 02-21-2022 14:11-0400 Body weight 67.[address] Elaine Cottrell Work Phone: [facility] Work Phone: 02-21-2022 14:11-0400 Diastolic blood pressure 70 mm[Hg] Dr. Elaine Cottrell Work Phone: [facility] Work Phone: 02-21-2022 14:11-0400 Systolic blood pressure 118 mm[Hg] Dr. Elaine Cottrell Work Phone: [facility] Work Phone: 01-16-2022 08:27-0400 Body mass index (BMI) [Ratio] 24.3 kg/m2 Dr. Elaine Cottrell Work Phone: [facility] Work Phone: 01-16-2022 08:27-0400 Body weight 66.[address] Elaine Cottrell Work Phone: [facility] Work Phone: 01-16-2022 08:27-0400 Diastolic blood pressure 70 mm[Hg] Dr. Elaine Cottrell Work Phone: [facility] Work Phone: 01-16-2022 08:27-0400 Systolic blood pressure 112 mm[Hg] Dr. Elaine Cottrell Work Phone: [facility] Work Phone: 11-22-2021 08:21-0500 Body mass index (BMI) [Ratio] 23.8 kg/m2 Dr. Elaine Cottrell Work Phone: [facility] Work Phone: 11-22-2021 08:21-0500 Body weight 64.[address] Elaine Cottrell Work Phone: [facility] Work Phone: 11-22-2021 08:21-0500 Diastolic blood pressure 80 mm[Hg] Dr. Elaine Cottrell Work Phone: [facility] Work Phone: 11-22-2021 08:21-0500 Systolic blood pressure 126 mm[Hg] Dr. Elaine Cottrell Work Phone: [facility] Work Phone: 11-15-2021 09:55-0500 Body mass index (BMI) [Ratio] 23.8 kg/m2 Dr. Elaine Cottrell Work Phone: [facility] Work Phone: 11-15-2021 09:55-0500 Body weight 64.[address] Elaine Cottrell Work Phone: [facility] Work Phone: 11-15-2021 09:55-0500 Diastolic blood pressure 82 mm[Hg] Dr. Elaine Cottrell Work Phone: [facility] Work Phone: 11-15-2021 09:55-0500 Systolic blood pressure 120 mm[Hg] Dr. Elaine Cottrell Work Phone: [facility] Work Phone: Encounters Encounter Date Encounter Type Care Provider Facility Start: 05-30-2025 End: 06-03-2025 ambulatory MAURO HERNÁNDEZ GYNECOLOGY TEACHER - PLASTIC CNC MACHINE OPERATOR Facility:[facility] Start: 05-30-2025 End: 06-03-2025 Outreach Lab MAURO HERNÁNDEZ GYNECOLOGY TEACHER - PLASTIC CNC MACHINE OPERATOR [facility] Start: 10-18-2024 End: 10-18-2024 ambulatory Elaine Cottrell Facility:[facility] Start: 08-23-2024 End: 08-23-2024 ambulatory Mauro Hernández NP Facility:[facility] Start: 07-09-2023 End: 07-14-2023 ambulatory MAURO HERNÁNDEZ GYNECOLOGY TEACHER - PLASTIC CNC MACHINE OPERATOR Facility:[facility] Start: 07-09-2023 End: 07-14-2023 Encounter for general adult medical examination without abnormal findings MAURO HERNÁNDEZ GYNECOLOGY TEACHER - PLASTIC CNC MACHINE OPERATOR Facility:[facility] Start: 07-09-2023 End: 07-13-2023 Outreach Lab MAURO HERNÁNDEZ GYNECOLOGY TEACHER - PLASTIC CNC MACHINE OPERATOR [facility] Start: 10-14-2022 End: 10-14-2022 ambulatory HUMAN RESOURCES GENERALIST-C Mauro Hernández HUMAN RESOURCES GENERALIST Work Phone: [facility] Work Phone: Start: 10-14-2022 End: 10-14-2022 Patient encounter procedure HUMAN RESOURCES GENERALIST-C Mauro Hernández HUMAN RESOURCES GENERALIST Work Phone: [facility] Start: 08-01-2022 End: 08-01-2022 Patient encounter procedure HUMAN RESOURCES GENERALIST-C Mauro Hernández HUMAN RESOURCES GENERALIST Work Phone: [facility] Start: 02-21-2022 End: 02-21-[address] Elaine Cottrell [facility] Start: 02-21-2022 End: 02-21-[address] Elaine Cottrell Work Phone: [facility] Start: 01-16-2022 End: 01-16-[address] Elaine Cottrell Work Phone: [facility] Start: 01-16-2022 End: 01-16-[address] Elaine Cottrell Work Phone: [facility] Start: 11-22-2021 End: 11-22-[address] Elaine Cottrell Work Phone: [facility] Start: 11-15-2021 End: 11-15-[address] Elaine Cottrell Work Phone[facility] Start: 11-15-2021 End: 11-15-[address] Elaine Cottrell Work Phone: [facility] Procedures Date Procedure Procedure Detail Performing Clinician Start: 10-14-2022 Screening mammography N P-C Mauro Hernández HUMAN RESOURCES GENERALIST Work Phone: Start: 02-21-[address] Selina Cottrell Work Phone: Start: 01-16-2022 Cytopathology proced ure, preparation of smear, genital source Dr. Elaine Cottrell Work Phone: Start: 01-16-2022 Investigation of transfusion reaction Dr. Elaine Cottrell Work Phone: Abdominal hysterectomy KIRK ANDERS HERNÁNDEZ GYNECOLOGY TEACHER - PLASTIC CNC MACHINE OPERATOR Immunizations Immunization Date Immunization Notes Care Provider Fa kashif 03-01-2019 tetanus toxoid, redu cooper diphtheria toxoid, and acellular pertussis vaccine, adsorbed MAURO HERNÁNDEZ GYNECOLOGY TEACHER - PLASTIC CNC MACHINE OPERATOR [facility] Payers Date Payer Category Payer Private Health Insurance [id number] 2024 Self-pay [id number] 2023 Unknown [id number] 1965 Unknown [id number] 1965 Unknown [id number] Unknown [id number] Unknown [id number] Unknown [id number] Social History Date Type Detail Facility Start: 02-21-2022 End: 08-01-2022 Tobacco smoking status NHIS Unknown if ever smoked [facility] Start: 08-31-2018 Non-smoker [facility] Start: 1965 Sex Assigned At Female [facility] Start: 06-09-2019 End: 12-19-2024 Tobacco smoking status Never smoked tobacco (finding) [facility] Comment on above: No smoke exposure Sexual Orientation [facility] Start: 03-16-2019 Sex Female (finding) [facility] Evaluation + Plan note Note Date & Type Note Facility Evaluation + Plan note No data available for this section [facility] Evaluation + Plan note Note Date & Type Note Facility Evaluation + Plan note Future Appointments Appointment Date:06/20/2025 09:00:00 AM Scheduled Provider:MAURO HERNÁNDEZ APRN, CNP Location:[facility] Appointment Type:PC Wellness Annual [facility] Evaluation note Note Date & Type Note Facility Evaluation note Diagnosis Onset Date Atrophic vaginitis acute Vulvar atrophy acute Vulvar atrophy acute Dysuria acute Vaginitis acute Vulvar atrophy acute [facility] Work Phone: Evaluation note Note Date & Type Note Facility Evaluation note Diagnosis Onset Date Encounter for routine gyneco logical examination noneactive [facility] Work Phone: Hospital Discharge instructions Note Date & Type Note Facility Hospital Discharge instructions No data available for this section [facility] Progress note Note Date & Type Note Facility Progress note No data available for this section [facility] Summary Purpose Family History No Family History Records Found Relationship Condition Age at Onset Recorded Date/T miriam mother Congestive heart failure Unknown father Malignant neoplasm of urinary bladder Unk nown Congestive heart failure Unknown Advance Directives No Advanced Directives Records Found Advance Directive Response Recorded Date/ Time Living Will Yes May 20 1 4:58pm Power of Package Line Relief Operator Yes May 20 4:58pm Advance Directive Response Recorded Date/ Time Living Will Yes May 20 1 3:58pm Power of Package Line Relief Operator Yes May 20 021 3:58pm Chief Complaint and Reason for Visit Chief Complaint 12 WK F/U VAGINAL LESION 1WK F/U PER JV vaginal cream not working UTI sx Reason for Visit Atrophic vaginitis Vulvar atrophy Vulvar atrophy Dysuria Vaginitis Vulvar atrophy 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 Reason for Visit Encounter for routin e gynecological examination Additional Source Comments INFORMATION SOURCE (unrecogn ized section and content) DATE CREATED AUTHOR 04/25/2020 [facility] DATE CREATED AUTHOR AUTHOR'S ORGANIZ ATION 07/15/2023 [facility] ([place]) DATE CREATED AUTHOR AUTHOR'S ORGANIZ ATION 11/06/2024 [facility] DATE CREATED AUTHOR AUTHOR'S ORGANIZ ATION 06/05/2025 [facility] Goals (unrecognized section and content) Goals may be documented in a n alternate sectionGoals may be documented in an alternate section No data available for this section No data available for this section Care Teams (unrecognized sec tion and content) Team Status: Active Member Role Status Dates Mauro Hernández HUMAN RESOURCES GENERALIST, HUMAN RESOURCES GENERALIST-C Family Provider Activ e Mauro Hernández HUMAN RESOURCES GENERALIST, HUMAN RESOURCES GENERALIST-C Primary Care Provider Active Team Status: Inactive Member Role Status Dates Mauro Hernández NP, HUMAN RESOURCES GENERALIST-C Primary Care Provider, Referring Provider Active Dr. Elaine Cottrell DO Attending Provider Activ e Team Status: Inactive Member Role Status Dates Mauro Hernández NP, HUMAN RESOURCES GENERALIST-C Primary Care Provider Active Dr. Elaine Cottrell DO Attending Provider Activ e FOR RECORDS PERTAINING TO PATIENTS WHO ARE [...] BE BASED ON THE PRIMARY CLINICAL RECORDS. [facility]. provides no warranty or guarantee of the accuracy or completeness of information in this document.
--- NOTE | 2025-08-25 16:03 | RAD_ITS ---
PROCEDURE: CHEST 1 VIEW (PORTABLE) 08/25/2025 REASON FOR EXAM: NEAR SYNCOPE TECHNIQUE: Frontal view of the chest. COMPARISON: 05/20/2021. FINDINGS: The heart is normal in size. The lungs are clear. No acute osseous abnormalities. RAD/Chest 1 View (Portable) IMPRESSION: No Acute Findings. Reading Location: [id number]
--- NOTE | 2025-08-25 16:04 | EDS_ITS ---
HPI History of Present Illness Chief Complaint: Dizziness Informant: patient, spouse/S.O. (), family (Sister) and EMS Narrative Narrative: 59-year-old female presenting to the emergency room with dizziness/near syncope. Patient states that she was at home today working when she suddenly felt like she needed to have a bowel movement. She states she went to the bathroom and had diarrhea. She states is not uncommon for her to have rapid change in bowel movements based on what she eats. She states that she began to feel lightheaded and developed tingling in her arms and her feet began to get pale and sweaty. States that she opened up the windows and lay down. Family states that she appeared very pale. She did not have any chest pain or palpitations. Patient states she had a similar event about 2 weeks ago while at work. She notes her sister had vasovagal reactions and followed with cardiology. Patient notes that she has had prior hysterectomy and is on estrogen therapy. No history of thromboembolism. She does not feel short of breath or have chest pain at this time. [facility] Medical History Pars defect with spondylolisthesis Low iron Leukopenia Home Medications ?Medication ?Instructions ?Recorded ?Last Taken ?Type loperamide 2 mg capsule 2 mg PO PRN PRN Diarrhea 12/06 Unknown History naproxen 500 mg tablet 500 mg PO DAILY PRN PRN Pain 08/23/18 Unknown History aspirin 81 mg tablet,delayed 81 mg PO DAILY 08/01/20 U nknown History release ascorbic acid (vitamin C) 500 mg mg PO 06/27/21 Unknow n History capsule cholecalciferol (vitamin D3) 50 50 mcg PO DAILY Unknown History mcg (2,000 unit) capsule evening primrose oil 500 mg capsule 500 mg PO DAILY Unknown History famotidine 20 mg tablet 20 mg PO DAILY PRN 06/27/21 Unknown History cranberry 500 mg capsule 500 mg PO DAILY 01/16/22 Unk nown History fluconazole 150 mg tablet 150 mg PO .COMPLEX #2 tabs 0 01/16/22 Unknown Rx fluconazole 150 mg tablet 150 mg PO Q3D 2 doses #2 tab s 02/21/22 Unknown Rx (Diflucan) lactobacillus combination no.9 4 4,000 mmu cells PO DA RODERICK 08/01/22 Unknown History billion cell capsule (Adult 50 Plus Probiotic) estradiol 0.01% (0.1 mg/gram) See Rx Instructions vagi nal 2XW 08/23/24 Unknown Rx vaginal cream #42.5 grams estradiol 1 mg tablet 1 mg PO QDAY 90 days #90 tab s 08/25/24 Unknown Rx potassium chloride 20 mEq 40 meq (2 x 20 mEq) PO DAILY 3 08/25/25 Unknown Rx tablet,extended release (K-Tab) days #6 tabs Allergy/AdvReac Type Severity Reaction Status Date / Time No Known Allergies Allergy Verified 08/25/25 15:24 Family History Mother CHF (congestive heart failure) Father Bladder cancer CHF (congestive heart failure) Surgical History History of colonoscopy History of tonsillectomy History of total hysterectomy with bilateral salpingo-oophorectomy (BSO) Social History household members: spouse number of children: 2 current occupational status: employed 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 history of recent travel: No sexually active: Yes Smoking Status: Never smoker alcohol intake: never substance use type: does not use what type of physical activity do you participate in: none seatbelt use: always do you feel safe at home: Yes additional social history: - Dony HAIR ROS ED Constitutional Constitutional ED: Reports sweats; Denies chills, fever(s) or weight loss Eyes Eyes: Denies change in vision or diplopia ENT ENT ED: Denies ear pain, rhinorrhea or sore throat Cardiovascular Cardiovascular: Reports other Details: Near syncope ; Denies chest pain, orthopnea, palpitations or racing heartbeat Respiratory/Chest Respiratory/Chest: Denies cough, dyspnea or orthopnea Gastrointestinal Gastrointestinal: Reports diarrhea; Denies abdominal pain, nausea or vomiting Genitourinary Genitourinary ED: Denies dysuria, hematuria or urinary frequency Musculoskeletal Musculoskeletal: Denies arthralgias or myalgias Integumentary Denies abscess or rash Neurologic Neurologic: Reports paresthesias RUE, RLE, LUE and LLE; Denies headache(s) or weakness Psychiatric Psychiatric: Denies anxiety, depression, suicidal ideation or suicidal thoughts Endocrine Endocrinology: Denies polydipsia, polyphagia or polyuria Allergic/Immunologic Allergic/Immunologic ED: Denies mouth swelling, tongue swelling or urticaria EXAM Physical Exam Const Vital Signs: 08/25/25 15:22 08/25/25 16:09 08/25/25 17:19 Temperature 98.4 F 98.4 F Temperature Source Oral Pulse Rate 73 73 Pulse Rate [Lying] 66 Pulse Rate [Sitting (for 1 minute prior to obtaining)] 68 Pulse Rate [Standing (for 1 minute prior to obtaining)] 74 Respiratory Rate 17 17 Blood Pressure 146/115 H 107/76 Blood Pressure [Lying] 115/71 Blood Pressure [Sitting (for 1 minute prior to obtaining)] 118/69 Blood Pressure [Standing (for 1 minute prior to obtaining)] 119/81 H Blood Pressure Mean 125 86 Blood Pressure Mean [Lying] 85 Blood Pressure Mean [Sitting (for 1 minute prior to obtaining)] 85 Blood Pressure Mean [Standing (for 1 minute prior to obtaining)] 93 Pulse Ox 100 100 Oxygen Delivery Method Room Air Positive well nourished and well developed General Appearance ED: well developed and NAD HEENT Reports normocephalic, head/scalp atraumatic and moist mucous membranes Eyes PERRL and EOMs intact bilaterally Neck no lymphadenopathy, supple and no JVD Resp normal respiratory effort and clear to auscultation bilaterally Cardio regular rate, regular rhythm and no murmurs GI normal to inspection, nondistended, normoactive bowel sounds and non-tender Palpation: soft Back/Spine no CVA tenderness and normal ROM Extremity normal to inspection General Extremety ED: Negative for edema General Extremity: Negative for edema Neuro oriented x3 and CN's II-XII intact bilaterally Sensorium / Orientation: alert Motor Exam: strength 5/5 throughout Psych mental status grossly normal Mood & Affect: Negative for depressed or tearful Skin no rashes or lesions noted and no wounds MDM MDM MDM Narrative Medical decision making narrative: Differential diagnosis includes but not limited to anemia electrolyte dysfunction cardiac dysrhythmia vasovagal near syncope dehydration Patient is not orthostatic. My independent interpretation of the single view chest x-ray is no acute process. EKG is a normal sinus rhythm with a ventricular rate of 68 bpm 2 sets of cardiac enzymes are negative. Glucose 124. Potassium noted to be low at 3.1. Hemoglobin 13.4 white count of 5.6 plate count of 271. Patient has remained in normal sinus on the monitor. She feels back to baseline. Unguinal write for 3 days of potassium. She is interested in seeing cardiology for vasovagal near syncope because her sister did. I also asked that she follow-up with primary care. Patient is comfortable being discharged home with her family. History & Record Review Discussion w/independent historian: EMS personnel, Patient, Family and Significant other Additional record(s) reviewed:: Prior labs Lab Data Attestation: I reviewed the patient's lab results. Labs: Laboratory Results - last 24 hr 08/25/25 08/25/25 15:00 17:16 WBC 5.6 RBC 4.30 Hgb 13.4 Hct 40.5 MCV 94.2 MCH 31.2 MCHC 33.1 RDW Std Deviation 42.2 RDW Coeff of Annalisa 12.2 Plt Count 271 MPV 10.2 Immature Gran % (Auto) 0.200 Neut % (Auto) 48.7 Lymph % (Auto) 41.1 H [place] % (Auto) 9.1 Eos % (Auto) 0.5 Baso % (Auto) 0.4 Absolute Neuts (auto) 2.7 Absolute Lymphs (auto) 2.30 Nucleated RBC % 0 Sodium 140 Potassium 3.1 L Chloride 102 Carbon Dioxide 23.0 Anion Gap 15 BUN 12 Creatinine 0.72 Estim Creat Clear Calc 86.85 Est GFR (MDRD) Non-Af 96 BUN/Creatinine Ratio 16.4 Glucose 124 H Calcium 9.2 Troponin T High Sens < 6 Troponin T Hi Sens 2 Hr < 6 Radiography Diagnostic Testing: Clinical Impression(s) from Imaging Studies Chest X-Ray 08/25/25 16:03 IMPRESSION: No Acute Findings. Reading Location: [address] EKG Initial EKG: Attestation: I personally reviewed and interpreted this EKG as follows: Comments: normal sinus rhythm with a ventricular rate of 68 bpm Discharge Plan Triage Chief Complaint: Dizziness ED Provider: Dax Kessler Dx/Rx/DC Orders Clinical Impression: Vasovagal near syncope, Acute hypokalemia Instructions: ED Hypokalemia, ED Near-Fainting- Vagal Reaction Prescriptions: New potassium chloride [K-Tab] 20 mEq tablet extended release 40 meq PO DAILY 3 Days Qty: 6 0RF No Action aspirin 81 mg tablet,delayed release (DR/EC) 81 mg PO DAILY evening primrose oil 500 mg capsule 500 mg PO DAILY Rx Instructions: give with meal/snack famotidine 20 mg tablet 20 mg PO DAILY PRN ascorbic acid (vitamin C) 500 mg capsule PO cholecalciferol (vitamin D3) 50 mcg (2,000 unit) capsule 50 mcg PO DAILY fluconazole 150 mg tablet 150 mg PO .COMPLEX Qty: 2 0RF Rx Instructions: 150 mg PO take one po now and repeat in 3 days fluconazole [Diflucan] 150 mg tablet 150 mg PO Q3D Qty: 2 3RF Adult 50 Plus Probiotic 4 billion cell capsule 4,000 mmu cells PO DAILY Rx Instructions: administer with a meal estradiol 0.01 % (0.1 mg/gram) cream See Rx Instructions vaginal 2XW Qty: 42.5 3RF Rx Instructions: fingertip amount vaginally twice a week; loperamide 2 MG capsule 2 mg PO PRN PRN (Reason: Diarrhea) naproxen 500 MG tablet 500 mg PO DAILY PRN PRN (Reason: Pain) cranberry 500 mg capsule 500 mg PO DAILY Rx Instructions: bid x 4 days q week, qd x 3 days estradiol 1 mg tablet 1 mg PO QDAY 90 Days Qty: 90 4RF Primary Care Provider: Mauro Hernández NP Referrals: Johnathan Martinez MD [Med Staff - Active Staff, Cardiology] - 1-2 Weeks Mauro Hernández NP, [facility] [Primary Care Provider, Family Practice] - 3-5 Days Print Language: Serbian Disposition Disposition: Home, Self Care Discharge Date/Time: 08/25/25 17:29
--- NOTE | 2025-08-25 16:04 | EKG12_ITS ---
Test Reason : Blood Pressure : */* mmHG Vent. Rate : 68 BPM Atrial Rate : 68 BPM P-R Int : 178 ms QRS Dur : 76 ms QT Int : 426 ms P-R-T Axes : 72 32 54 degrees QTcB Int : 452 ms Normal sinus rhythm with sinus arrhythmia Normal ECG Confirmed by TITO ALFORD, IRAIS ([id number]), industrial editor BANDAR BRUNO ([id number]) on 08/28/2025 6:06:22 AM Referred By: Confirmed By: IRAIS FRANCIS MD
[2025-08-25 16:09] VITALS: BP 115/71; BP 118/69; BP 119/81; PULSE 66; PULSE 68; PULSE 74
[2025-08-25 16:29] LABS: Hematocrit 40.5 % (37-47); Hemoglobin 13.4 g/dL (12.0-15.0); Immature Granulocytes Count 0.010 X10^3/uL (0.0-0.0); Mean Corp Hgb Conc 33.1 g/dL (32-36); Mean Corpuscular Volume 94.2 fL (81-99); Mean Platelet Vol. 10.2 fl (6.2-12.0); NRBC Flagged by Analyzer 0 % (0-5); Platelet Count 271 K/mm3 (150-450); RBC Distribution Width CV 12.2 % (11.6-14.6); RBC Distribution Width SD 42.2 fl (35.1-43.9); Red Blood Count 4.30 M/mm3 (4.2-5.4); White Blood Count 5.6 K/mm3 (4.4-11.0)
[2025-08-25 16:41] LABS: Anion Gap 15 (5-15); BUN 12 mg/dL (4-19); BUN/Creat Ratio 16.4 RATIO (10-20); Calcium,Total 9.2 mg/dL (7.6-11.0); Carbon Dioxide 23.0 mmol/L (21.0-32.0); Chloride 102 mmol/L (98-108); Estimated Creatinine Clearance 86.85 ml/min (50-250); Glucose 124 mg/dL (70-99); Potassium 3.1 mmol/L (3.3-5.1)
[2025-08-25 16:55] LABS: Troponin T High Sensitivity < 6 ng/L (<=14)
[2025-08-25 17:19] VITALS: BP 107/76; PULSE 73; RESP 17; TEMP 36.9; O2SAT 100
[2025-08-25 17:50] LABS: Troponin T High Sens 2 HR < 6 ng/L (<=14)
== END 2025-08-25 17:29 | disposition home or self-care (01) ==
PROVIDERS: Emergency Provider Emergency Medicine; PCP Nurse Practitioner Family; Visit Provider Emergency Medicine
DX: R55 Syncope and collapse (principal); E87.6 Hypokalemia
CPT/HCPCS: 71045; 80048; 84484; 85025; 93005; 99285; A4216